=== PATIENT | female | born 1965 | race Caucasian/White ===

== ENCOUNTER 2016-05-24 12:00 | Day surgery (SDC) | payer OTHER ==
[2016-05-22 11:09] VITALS: BMI 29.1
[~2016-05-24 12:00] MED LIST: DEXAMETHASONE SOD PHOSPHATE 10 MG/ML 1 ML VIAL IV ONE; FAMOTIDINE 20 MG/2 ML VIAL IV PRN; HEPARIN SODIUM,PORCINE 5,000 UNIT/ML 1 ML VIAL SQ ONE; LIDOCAINE 1% 20 ML VIAL (10MG/ML) FOR IV START INTRADERMA PRN; MIDAZOLAM 2 MG/2 ML VIAL IV PRN; ONDANSETRON 4 MG/2 ML VIAL IVP ONE; SCOPOLAMINE 1.5MG/72HR PATCH TRANSDERM ONE; ceFAZolin 2 GM in SODIUM CHLORIDE 0.9% 100 ML IVPB ONE
[2016-05-24 13:40] LABS: INR 1.1 (<1.1)
[2016-05-24] MEDS: LACTATED RINGERS 1,000 ML IV SCH (13:44)
[2016-05-24] MEDS ORDERED: MIDAZOLAM 2 MG/2 ML VIAL ONE (15:08)
[2016-05-24] MEDS ORDERED: PROPOFOL 10 MG/ML 20 ML VIAL IV ONE (15:08)
[2016-05-24] MEDS ORDERED: fentaNYL (PF) 50 MCG/ML 2 ML AMP ONE (15:08)
[2016-05-24] MEDS ORDERED: PHENYLEPHRINE-0.9% NACL SYG 1 MG/10 ML SYRINGE ONE (15:08)
[2016-05-24] MEDS ORDERED: LIDOCAINE 1% INJ 10MG/ML (20 ML MDV) ONE (15:08)
[2016-05-24] MEDS ORDERED: ROCURONIUM BROMIDE 10 MG/ML 10 ML VIAL IV ONE (15:08)
[2016-05-24] MEDS ORDERED: KETOROLAC 30 MG/ML 1 ML VIAL ONE (15:08)
[2016-05-24] MEDS ORDERED: NEOSTIGMINE 1 MG/ML 10 ML VIAL ONE (15:08)
[2016-05-24] MEDS ORDERED: SUCCINYLCHOLINE CHLORIDE 100 MG/5 ML SYR IV ONE (15:08)
[2016-05-24] MEDS ORDERED: METOPROLOL TARTRATE 5 MG/5 ML VIAL IVP ONE (15:08)
[2016-05-24] MEDS ORDERED: GLYCOPYRROLATE 0.2 MG/ML 2 ML VIAL ONE (15:08)
[2016-05-24] MEDS ORDERED: HYDROmorphone (PF) 1 MG/ML ONE (15:08)
[2016-05-24] MEDS ORDERED: BUPIVACAIN-EPI 0.25%-1:200,000 30 ML VIAL SQ ONE ×2 (15:49)
[2016-05-24] MEDS ORDERED: LACTATED RINGERS 1,000 ML IV ONE (16:53)
[2016-05-24 17:16] VITALS: TEMP 97.8
--- NOTE | 2016-05-24 17:16 | P.OP ---
Date of Procedure: 05/24/16 Preoperative Diagnosis: Right inguinal pain Postoperative Diagnosis: Right Indirect inguinal hernia Right femoral hernia Procedure(s) Performed: Robot assisted laparoscopic inguinal hernia repair with mesh Anesthesia: BELL Surgeon: Naren Lopez Estimated Blood Loss (ml): 10 Pathology: none sent Condition: stable Disposition: PACU Indications for Procedure: Pain in the right groin with swelling Operative Findings: Right indirect inguinal hernia and right femoral hernia No active bleeding at the end of the procedure Description of Procedure: Informed consent was obtained patient and then The patient was brought to the operating room and placed in supine position. General anesthesia with endotracheal intubation was performed as per anesthesia team. A sanchez catheter was inserted under sterile aseptic precautions. Chlorhexidine was used to prep the skin followed by application of sterile drapes . She was placed in the lithotomy position. A timeout was performed to verify correct patient, correct procedure and correct side. Patient was confirmed to receive perioperative IV antibiotics, subcutaneous heparin 5000 units and bilateral SCDs were placed. The left upper quadrant point was identified and a stab incision was made. Veress needle was introduced and placement was confirmed with the help of the drop test. The abdomen was then insufflated to 15 mmHg. Once that was done 5 mm port was introduced into the left upper quadrant using the Optiview technique after which a 12 mm port was placed in the supraumbilical position and a 8 mm port in the right lower quadrant and another 8 mm port inthe left lower quadrant. The robot was then docked with the central camera port and the 2 side working ports. The camera and the instrument was were introduced after which the median umbilical fold was retracted laterally towards the left side a small incision was made at the junction of the umbilical fold and the peritoneum and carried all the way laterally thus creating a plane in the preperitoneal space. This did this was further dissected with the help of blunt dissection using gentle stroking maneuvers all the way down to Brendon ligament medially and laterally we went inferior exposing the vessels inferiorly. The round ligament was identified and the hernia sac was teased off of the ligament gently with the help of blunt dissection and once it was taken off and then attention was turned to the femoral canal where fat was plugging the canal in the form of a hernia and it was reduced. The hernia sac and the other fat was had been reduced the [employer] mesh was introduced in the abdominal cavity with the lower part above the level of the peritoneal fold was then unfolded so that it covered all the orifices and covered the Brendon's ligament medially once again pain positioned perfectly to seal was applied to the inferior edge of the mesh as well as around the Brendon's ligament after which the peritoneal flaps were closed with the help of running 0 v lock suture once that was done procedure was completed all incisions and camera was removed and a laparoscope was introduced and the 12 mm port site was closed with the help of a Renzo Shoemaker the direct vision after which gas was turned off abdomen was thoroughly desufflated skins was closed with the help of 4-0 Monocryl and Dermabond. Sanchez catheter was removed patient was extubated and taken to recovery room in stable condition patient tolerated the procedure well there were no complications
[2016-05-24] MEDS: HYDROmorphone 1 MG/ML 1 ML SYRINGE IVP PRN ×3 (17:19→17:30)
[2016-05-24 17:37] LABS: Glucose,Whole Blood 142 mg/dL (75-99)
[2016-05-24] MEDS ORDERED: oxyCODONE-APAP 10-325MG 1 EACH TAB PO PRN (17:53)
[2016-05-24 18:01] VITALS: RESP 18
[2016-05-24 18:53] VITALS: BP 117/73; PULSE 78
== END 2016-05-24 19:17 | disposition home or self-care (01) ==
LOC: OR 12:00
PROVIDERS: ATTEND Surgery
DX: K40.90 Unilateral inguinal hernia, without obstruction or gangrene, not specified as recurrent (principal); K41.90 Unilateral femoral hernia, without obstruction or gangrene, not specified as recurrent; K91.5 Postcholecystectomy syndrome; D68.59 Other primary thrombophilia; Z86.711 Personal history of pulmonary embolism; Z86.718 Personal history of other venous thrombosis and embolism; E72.12 Methylenetetrahydrofolate reductase deficiency; E78.5 Hyperlipidemia, unspecified; E55.9 Vitamin D deficiency, unspecified; F32.9 Major depressive disorder, single episode, unspecified; F41.1 Generalized anxiety disorder; I11.9 Hypertensive heart disease without heart failure; G89.4 Chronic pain syndrome; M19.90 Unspecified osteoarthritis, unspecified site; F39 Unspecified mood [affective] disorder; Z79.01 Long term (current) use of anticoagulants; Z79.891 Long term (current) use of opiate analgesic; Z79.899 Other long term (current) drug therapy; Z88.8 Allergy status to other drugs, medicaments and biological substances; F17.200 Nicotine dependence, unspecified, uncomplicated
CPT/HCPCS: 49650; 81025; 85610; C1781; J2250; J1644; J1100; J2710; J0690; J2405; J2001; J3010; J1885; J1170; J2370; J0330; J2704

== ENCOUNTER → 2016-06-22 | Outpatient (CLI) | payer OTHER ==
--- NOTE | 2016-06-22 13:40 | XR ---
EXAMINATION TYPE: XR knee complete bilateral DATE OF EXAM: 06/22/2016 1:30 PM COMPARISON: NONE HISTORY: Pain TECHNIQUE: 3 views of each knee are submitted. FINDINGS: Right knee: There is narrowing of the joint space but no erosive changes. Sclerotic lesion involving the tibia most typical of bone island. No acute fracture. No dislocation. There is a small amount of fluid in the suprapatellar bursa. Left knee: There is mixed sclerosis involving the medial tibial plateau. No fracture line. Narrowing of the joint space seen. No erosive change. Small amount of fluid in the suprapatellar bursa.. IMPRESSION: 1. No acute fracture or dislocation. 2. A post arthritic changes bilaterally. Recommend bilateral MRI of the knee particularly on the left to assess the areas of sclerosis involving the medial tibial plateau. Both knees demonstrate suprapa tellar bursal fluid collections.
== END | disposition home or self-care (01) ==
LOC: RADXRMAIN 12:56
PROVIDERS: ATTEND Internal Medicine
DX: M17.0 Bilateral primary osteoarthritis of knee (principal); M89.8X6 Other specified disorders of bone, lower leg

== ENCOUNTER → 2016-07-10 | Outpatient (CLI) | payer OTHER ==
--- NOTE | 2016-07-10 23:12 | MR ---
MRI CERVICAL SPINE: CLINICAL HISTORY: Cervicalgia per order. Headache with neck pain and stiffness for 5 years causing pa in or weakness in right arm and fingers per patient. TECHNIQUE: Multiplanar, multisequence imaging of the cervical spine is performed without IV contrast. COMPARISON: Prior MRI cervical spine March 23, 2015. FINDINGS: Coronal images show levoconvex scoliosis centered in the upper to midthoracic spine similar to prior exam. Sagittal images of the cervical spine show the craniocervical junction to appear with in normal limits. The cervical and upper thoracic spinal cord is normal in course, caliber, and sign al. Vertebral alignment is anatomic. The vertebral body and heights remain normal. There is redemo nstration of fairly moderate disc space narrowing and spurring at C5-C6 and C6-C7 levels. Posterior d isc herniations are redemonstrated effacing anterior thecal sac at these levels on sagittal images. H eterogeneous diminished T1 and increased T2 signal at these levels consistent with Modic type I degen erative change is redemonstrated.. Axial images show the C2-C3 level to remain within normal limits. Axial images at C3-C4 level redemonstrate some uncovertebral facet degenerative changes bilaterally w ith right paracentral/foraminal disc protrusion effacing anterolateral thecal sac and causing asymmet ebony mild right-sided neural foraminal narrowing. Left-sided neural foramen is patent. No significant change from prior. Axial images at C4-C5 level show left-sided uncovertebral facet degenerative changes with broad-based right paracentral disc protrusion effacing anterior thecal sac, bilateral neural foramina are patent . No significant change from prior. Axial images at C5-C6 level broad-based posterior disc protrusion with left-sided uncovertebral facet degenerative changes, there is effacement of the anterior thecal sac and moderate to severe left-mandy ed neural foraminal narrowing redemonstrated. Right-sided neural foramen is patent. No significant ch axel from prior study is seen seen. Axial images at C6-C7 level show broad-based posterior disc protrusion effacing anterior thecal sac u p to ventral surface of spinal cord on current study though finding is felt exaggerated by artifact a s is less prominent on sagittal images bilateral neural foramina remain patent. Axial images at C7-T1 level also show blooming artifact, there is disc herniation effacing anterior t hecal sac, bilateral neural foramina are likely patent at this level. Slight grade 1 anterolisthesis C7 on T1 is redemonstrated. IMPRESSION: Multilevel degenerative changes in the cervical spine as detailed above most prominent fi ndings remain present at C5-C6 and C6-C7 level. No significant progression from prior MRI is noted.
== END | disposition home or self-care (01) ==
LOC: RADMRIMAIN 16:25
PROVIDERS: ATTEND Psychiatry & Neurology Neurology
DX: M47.812 Spondylosis without myelopathy or radiculopathy, cervical region (principal)
CPT/HCPCS: 72141

== ENCOUNTER 2016-10-22 11:11 | Inpatient (IN) | payer OTHER ==
[2016-10-22] MEDS ORDERED: ONDANSETRON 4 MG/2 ML VIAL IVP STA (11:58)
[2016-10-22] MEDS ORDERED: SODIUM CHLORIDE 0.9% 1,000 ML IV ONE ×2 (11:58→13:30)
[2016-10-22] MEDS ORDERED: MORPHINE SULFATE 4 MG/ML SYRINGE IVP STA (11:58)
[2016-10-22] MEDS ORDERED: MAG HYDROX/AL HYDROX/SIMETH 30 ML, HYOSCYAMINE ELIXIR 10 ML, CIMETIDINE HCL 300 MG, LID... PO STA ×4 (11:58)
[2016-10-22] MEDS: ASPIRIN 325 MG TAB PO STA ×2 (12:11→13:51)
[2016-10-22 12:22] LABS: Basophils % (A) 0 %; CH 30.7; CHCM 34.7; Eosinophils # (A) 0.1 k/uL (0-0.7); Eosinophils % (A) 1 %; HCT 50.4 % (34.0-46.0); HDW 2.19; HGB 17.3 gm/dL (11.4-16.0); Luc # (Auto) 0.11; Luc % (Auto) 1; Lymphocytes % (A) 6 %; MCH 30.4 pg (25.0-35.0); MCHC 34.3 g/dL (31.0-37.0); MCV 88.7 fL (80.0-100.0); Mean Platelet Volume 6.4; Monocytes # (A) 0.5 k/uL (0-1.0); Monocytes % (A) 3 %; Neutrophils # (A) 15.8 k/uL (1.3-7.7); Neutrophils % (A) 90 %; RBC 5.68 m/uL (3.80-5.40); WBC 17.5 k/uL (3.8-10.6); WBC (Perox) 17.42
[2016-10-22 12:31] LABS: ALT 38 U/L (9-52); AST 22 U/L (14-36); Alkaline Phosphatase 137 U/L (38-126); Anion Gap 12 mmol/L; Blood Urea Nitrogen 16 mg/dL (7-17); Calcium 9.8 mg/dL (8.4-10.2); Carbon Dioxide 23 mmol/L (22-30); Chloride 101 mmol/L (98-107); Glucose 113 mg/dL (74-99); Non-African American GFR(MDRD) >60 (>60 ml/min/1.73 sqM); Potassium 3.3 mmol/L (3.5-5.1); Sodium 136 mmol/L (137-145); Total Bilirubin 1.2 mg/dL (0.2-1.3); Total Protein 7.4 g/dL (6.3-8.2)
--- NOTE | 2016-10-22 12:48 | XR ---
EXAMINATION TYPE: XR chest 2V DATE OF EXAM: 10/22/2016 COMPARISON: Chest x-ray March 10, 2014. HISTORY: Sharp chest and epigastric abdominal pain. TECHNIQUE: Frontal and lateral views of the chest are obtained. FINDINGS: There is no focal air space opacity, pleural effusion, or pneumothorax seen. The cardiac silhouette size is within normal limits. The osseous structures are intact. Cholecystectomy clips a re redemonstrated on lateral view. IMPRESSION: No acute process. No significant change from prior.
[2016-10-22] MEDS ORDERED: KETOROLAC 30 MG/ML 1 ML VIAL IVP STA (13:30)
[2016-10-22] MEDS ORDERED: HYDROmorphone 1 MG/ML 1 ML SYRINGE IVP STA (13:30)
--- NOTE | 2016-10-22 13:41 | ED ---
Abdominal Pain HPI - General Chief Complaint: Abdominal Pain Stated Complaint: Abdominal Pain Source: patient Mode of arrival: wheelchair Limitations: no limitations - History of Present Illness Initial Comments: 51-year-old female with past medical history of DM, DVT, HLD, HTN, PE , MTHFR gene clotting disorder, cholecystectomy, tubal ligation, and uterine ablation presented for evaluation of epigastric abdominal pain that occurred suddenly at 3 AM this morning. She states she got up to the bathroom and took a drink of water and immediately had sudden onset pain. She states that she's had 3 previous episodes to of which resolved on their own and one resulted in coming to the ED for which no pathologic etiology was identified and she was discharged home. She states there are no alleviating factors and there is associated nausea without vomiting. She denies chest pain, shortness breath, fevers, chills. - Related Data Home Medications Medication Instructions Recorded Confirmed DULoxetine HCL [Cymbalta] 60 mg PO BID 05/23/16 10/22/16 Pregabalin [Lyrica] 75 mg PO BID 05/23/16 10/22/16 Atenolol [Tenormin] 25 mg PO BID 10/22/16 10/22/16 Butalb/Acetaminophen/Caffeine 1 tab PO Q6HR PRN 10/22/16 10/22/16 [Fioricet 50-325-40] HYDROcodone/APAP 10-325MG [Wolbach 1 tab PO QID 10/22/16 10/22/16 10-325] Levothyroxine Sodium [Synthroid] 50 mcg PO DAILY 10/22/16 10/22/16 Losartan Potassium [Losartan 100 mg PO DAILY 10/22/16 10/22/16 Potassium] Warfarin Sodium 10 mg PO Q48H 10/22/16 10/22/16 Warfarin Sodium [Coumadin] 5 mg PO Q48H 10/22/16 10/22/16 Allergies Allergy/AdvReac Type Severity Reaction Status Date / Time No Known Allergies Allergy Verified 10/22/16 11:22 Review of Systems ROS Statement: Those systems with pertinent positive or pertinent negative responses have been documented in the HPI. ROS Other: All systems not noted in ROS Statement are negative. Constitutional: Denies: fever, chills Eyes: Denies: eye pain, eye discharge ENT: Denies: ear pain, throat pain Respiratory: Denies: cough, dyspnea Cardiovascular: Denies: chest pain, palpitations Endocrine: Denies: fatigue, polydipsia Gastrointestinal: Reports: abdominal pain, nausea. Denies: vomiting, diarrhea, constipation, hematemesis, melena, hematochezia Genitourinary: Denies: urgency, dysuria Musculoskeletal: Denies: back pain, arthralgia, myalgia Skin: Denies: rash, lesions Neurological: Denies: headache, weakness Psychiatric: Denies: anxiety, depression Hematological/Lymphatic: Denies: easy bleeding, easy bruising Past Medical History Past Medical History: Blood Disorder, Diabetes Mellitus, Deep Vein Thrombosis ( DVT), Hyperlipidemia, Hypertension, Pulmonary Embolus (PE) Additional Past Medical History / Comment(s): rt inguinal hernia,MTHFR gene- clotting disorder-developed DVT & PE after knee surg., frequent diarrhea, no longer taking anything for diabetes-was borderline,thinks steroids Feb 2016 History of Any Multi-Drug Resistant Organisms: None Reported Past Surgical History: Cholecystectomy, Orthopedic Surgery, Tubal Ligation, Uterine Ablation Additional Past Surgical History / Comment(s): hand surg & knee surg. Past Anesthesia/Blood Transfusion Reactions: No Reported Reaction Past Psychological History: Depression Smoking Status: Current every day smoker Past Alcohol Use History: None Reported Past Drug Use History: None Reported - Past Family History Mother Family Medical History: No Reported History Father History Unknown: Yes General Exam Limitations: no limitations General appearance: alert, in distress, obese Head exam: Present: atraumatic, normocephalic, normal inspection Eye exam: Present: normal appearance, PERRL, EOMI. Absent: scleral icterus, conjunctival injection, periorbital swelling ENT exam: Present: normal exam, mucous membranes moist Neck exam: Present: normal inspection. Absent: tenderness, meningismus, lymphadenopathy Respiratory exam: Present: normal lung sounds bilaterally, other ( hyperventilation). Absent: respiratory distress, wheezes, rales, rhonchi, stridor Cardiovascular Exam: Present: regular rate, normal rhythm, normal heart sounds. Absent: systolic murmur, diastolic murmur, rubs, gallop, clicks GI/Abdominal exam: Present: soft, tenderness (epigastric). Absent: distended, guarding, rebound, rigid, mass, bruit, pulsatile mass, hernia Rectal exam: Present: deferred Extremities exam: Present: normal inspection, full ROM, normal capillary refill. Absent: tenderness, pedal edema, joint swelling, calf tenderness Back exam: Present: normal inspection Neurological exam: Present: alert, oriented X3, CN II-XII intact Psychiatric exam: Present: normal affect, normal mood Skin exam: Present: warm, dry, intact, normal color. Absent: rash Course Vital Signs 10/22/16 10/22/16 10/22/16 11:22 15:40 17:04 Temperature 98.3 F 101.1 F H 99.5 F Pulse Rate 82 93 86 Respiratory 28 H 18 18 Rate Blood Pressure 123/86 160/88 152/85 O2 Sat by Pulse 100 97 94 L Oximetry 10/22/16 18:14 Temperature 98.9 F Pulse Rate 75 Respiratory 18 Rate Blood Pressure 145/87 O2 Sat by Pulse 96 Oximetry Medical Decision Making - Medical Decision Making 51-year-old female with significant past medical history presented for evaluation of epigastric abdominal pain of sudden onset without radiation that started at 3 AM this morning. She states this is similar previous episodes however she has had no previous admissions for them. On physical examination she does appear to be in marked distress and constantly moving around on the bed. There is mild tenderness to the epigastric area however the abdomen is soft without peritoneal signs of guarding, rigidity, rebound. There is no flank tenderness bilaterally. The patient is not actively vomiting during exam and she has not been noted to have any emesis during her visit here. Concern for pancreatitis however given her age and comorbidities we'll also work up for ACS with troponins and EKG. On reevaluation the patient continues to have marked abdominal tenderness. Labs revealed a mild elevation in lactic acid at 2.1 and a white count of 17. There is also an elevation in her alk phos however she does have a past medical history of a cholecystectomy. The patient was informed of her lab results and repeat pain control as well as another liter of IV fluids provided. We'll obtain CT abdomen and pelvis for further evaluation. CT abdomen and pelvis showed diffuse colitis through the transverse colon as well as the sigmoid colon. During this time the pt became febrile and required tylenol for fever relief. She was informed of all results and that she would be admitted and started on IV antibiotics. The accepting physician and his PA were updated on the status of the patient and agreed with plan of care. Admission order placed and bed request submitted. - Lab Data Result diagrams: 10/22/16 12:09 10/22/16 12:09 Lab Results 10/22/16 10/22/16 10/22/16 Range/Units 12:09 12:09 12:09 WBC 17.5 H (3.8-10.6) k/uL RBC 5.68 H (3.80-5.40) m/uL Hgb 17.3 H (11.4-16.0) gm/dL Hct 50.4 H (34.0-46.0) % MCV 88.7 (80.0-100.0) fL MCH 30.4 (25.0-35.0) pg MCHC 34.3 (31.0-37.0) g/dL RDW 13.0 (11.5-15.5) % Plt Count 371 (150-450) k/uL Neutrophils % 90 % Lymphocytes % 6 % Monocytes % 3 % Eosinophils % 1 % Basophils % 0 % Neutrophils # 15.8 H (1.3-7.7) k/uL Lymphocytes # 1.0 (1.0-4.8) k/uL Monocytes # 0.5 (0-1.0) k/uL Eosinophils # 0.1 (0-0.7) k/uL Basophils # 0.0 (0-0.2) k/uL PT (9.0-12.0) sec INR (<1.2) Sodium 136 L (137-145) mmol/L Potassium 3.3 L (3.5-5.1) mmol/L Chloride 101 (98-107) mmol/L Carbon Dioxide 23 (22-30) mmol/L Anion Gap 12 mmol/L BUN 16 (7-17) mg/dL Creatinine 0.60 (0.52-1.04) mg/dL Est GFR (MDRD) Af Amer >60 (>60 ml/min/1.73 sqM) Est GFR (MDRD) Non-Af >60 (>60 ml/min/1.73 sqM) Glucose 113 H (74-99) mg/dL Lactic Ac Sepsis Rflx Plasma Lactic Acid Corky 2.1 H* (0.7-2.0) mmol/L Calcium 9.8 (8.4-10.2) mg/dL Total Bilirubin 1.2 (0.2-1.3) mg/dL AST 22 (14-36) U/L ALT 38 (9-52) U/L Alkaline Phosphatase 137 H (38-126) U/L Troponin I (0.000-0.034) ng/mL NT-Pro-B Natriuret Pep pg/mL Total Protein 7.4 (6.3-8.2) g/dL Albumin 4.5 (3.5-5.0) g/dL Lipase 59 (23-300) U/L Urine Color Urine Appearance (Clear) Urine pH (5.0-8.0) Ur Specific [place] (1.001-1.035) Urine Protein (Negative) Urine Glucose (UA) (Negative) Urine Ketones (Negative) Urine Blood (Negative) Urine Nitrite (Negative) Urine Bilirubin (Negative) Urine Urobilinogen (<2.0) mg/dL Ur Leukocyte Esterase (Negative) Urine RBC (0-5) /hpf Urine WBC (0-5) /hpf Ur Squamous Epith Cells (0-4) /hpf Urine Bacteria (None) /hpf Urine Mucus (None) /hpf 10/22/16 10/22/16 10/22/16 Range/Units 12:09 12:09 12:09 WBC (3.8-10.6) k/uL RBC (3.80-5.40) m/uL Hgb (11.4-16.0) gm/dL Hct (34.0-46.0) % MCV (80.0-100.0) fL MCH (25.0-35.0) pg MCHC (31.0-37.0) g/dL RDW (11.5-15.5) % Plt Count (150-450) k/uL Neutrophils % % Lymphocytes % % Monocytes % % Eosinophils % % Basophils % % Neutrophils # (1.3-7.7) k/uL Lymphocytes # (1.0-4.8) k/uL Monocytes # (0-1.0) k/uL Eosinophils # (0-0.7) k/uL Basophils # (0-0.2) k/uL PT 14.6 H (9.0-12.0) sec INR 1.5 H (<1.2) Sodium (137-145) mmol/L Potassium (3.5-5.1) mmol/L Chloride (98-107) mmol/L Carbon Dioxide (22-30) mmol/L Anion Gap mmol/L BUN (7-17) mg/dL Creatinine (0.52-1.04) mg/dL Est GFR (MDRD) Af Amer (>60 ml/min/1.73 sqM) Est GFR (MDRD) Non-Af (>60 ml/min/1.73 sqM) Glucose (74-99) mg/dL Lactic Ac Sepsis Rflx Plasma Lactic Acid Corky (0.7-2.0) mmol/L Calcium (8.4-10.2) mg/dL Total Bilirubin (0.2-1.3) mg/dL AST (14-36) U/L ALT (9-52) U/L Alkaline Phosphatase (38-126) U/L Troponin I <0.012 (0.000-0.034) ng/mL NT-Pro-B Natriuret Pep 1010 pg/mL Total Protein (6.3-8.2) g/dL Albumin (3.5-5.0) g/dL Lipase (23-300) U/L Urine Color Urine Appearance (Clear) Urine pH (5.0-8.0) Ur Specific [place] (1.001-1.035) Urine Protein (Negative) Urine Glucose (UA) (Negative) Urine Ketones (Negative) Urine Blood (Negative) Urine Nitrite (Negative) Urine Bilirubin (Negative) Urine Urobilinogen (<2.0) mg/dL Ur Leukocyte Esterase (Negative) Urine RBC (0-5) /hpf Urine WBC (0-5) /hpf Ur Squamous Epith Cells (0-4) /hpf Urine Bacteria (None) /hpf Urine Mucus (None) /hpf 10/22/16 10/22/16 10/22/16 Range/Units 12:46 13:10 16:13 WBC (3.8-10.6) k/uL RBC (3.80-5.40) m/uL Hgb (11.4-16.0) gm/dL Hct (34.0-46.0) % MCV (80.0-100.0) fL MCH (25.0-35.0) pg MCHC (31.0-37.0) g/dL RDW (11.5-15.5) % Plt Count (150-450) k/uL Neutrophils % % Lymphocytes % % Monocytes % % Eosinophils % % Basophils % % Neutrophils # (1.3-7.7) k/uL Lymphocytes # (1.0-4.8) k/uL Monocytes # (0-1.0) k/uL Eosinophils # (0-0.7) k/uL Basophils # (0-0.2) k/uL PT (9.0-12.0) sec INR (<1.2) Sodium (137-145) mmol/L Potassium (3.5-5.1) mmol/L Chloride (98-107) mmol/L Carbon Dioxide (22-30) mmol/L Anion Gap mmol/L BUN (7-17) mg/dL Creatinine (0.52-1.04) mg/dL Est GFR (MDRD) Af Amer (>60 ml/min/1.73 sqM) Est GFR (MDRD) Non-Af (>60 ml/min/1.73 sqM) Glucose (74-99) mg/dL Lactic Ac Sepsis Rflx Y Plasma Lactic Acid Corky 0.8 (0.7-2.0) mmol/L Calcium (8.4-10.2) mg/dL Total Bilirubin (0.2-1.3) mg/dL AST (14-36) U/L ALT (9-52) U/L Alkaline Phosphatase (38-126) U/L Troponin I (0.000-0.034) ng/mL NT-Pro-B Natriuret Pep pg/mL Total Protein (6.3-8.2) g/dL Albumin (3.5-5.0) g/dL Lipase (23-300) U/L Urine Color Yellow Urine Appearance Cloudy H (Clear) Urine pH 8.0 (5.0-8.0) Ur Specific [place] 1.015 (1.001-1.035) Urine Protein 1+ H (Negative) Urine Glucose (UA) Trace H (Negative) Urine Ketones 3+ H (Negative) Urine Blood Small H (Negative) Urine Nitrite Negative (Negative) Urine Bilirubin Negative (Negative) Urine Urobilinogen <2.0 (<2.0) mg/dL Ur Leukocyte Esterase Negative (Negative) Urine RBC 10 H (0-5) /hpf Urine WBC <1 (0-5) /hpf Ur Squamous Epith Cells 5 H (0-4) /hpf Urine Bacteria Rare H (None) /hpf Urine Mucus Rare H (None) /hpf 10/22/16 10/22/16 Range/Units 16:25 16:25 WBC (3.8-10.6) k/uL RBC (3.80-5.40) m/uL Hgb (11.4-16.0) gm/dL Hct (34.0-46.0) % MCV (80.0-100.0) fL MCH (25.0-35.0) pg MCHC (31.0-37.0) g/dL RDW (11.5-15.5) % Plt Count (150-450) k/uL Neutrophils % % Lymphocytes % % Monocytes % % Eosinophils % % Basophils % % Neutrophils # (1.3-7.7) k/uL Lymphocytes # (1.0-4.8) k/uL Monocytes # (0-1.0) k/uL Eosinophils # (0-0.7) k/uL Basophils # (0-0.2) k/uL PT (9.0-12.0) sec INR (<1.2) Sodium (137-145) mmol/L Potassium (3.5-5.1) mmol/L Chloride (98-107) mmol/L Carbon Dioxide (22-30) mmol/L Anion Gap mmol/L BUN (7-17) mg/dL Creatinine (0.52-1.04) mg/dL Est GFR (MDRD) Af Amer (>60 ml/min/1.73 sqM) Est GFR (MDRD) Non-Af (>60 ml/min/1.73 sqM) Glucose (74-99) mg/dL Lactic Ac Sepsis Rflx Plasma Lactic Acid Corky 0.8 (0.7-2.0) mmol/L Calcium (8.4-10.2) mg/dL Total Bilirubin (0.2-1.3) mg/dL AST (14-36) U/L ALT (9-52) U/L Alkaline Phosphatase (38-126) U/L Troponin I 0.033 (0.000-0.034) ng/mL NT-Pro-B Natriuret Pep pg/mL Total Protein (6.3-8.2) g/dL Albumin (3.5-5.0) g/dL Lipase (23-300) U/L Urine Color Urine Appearance (Clear) Urine pH (5.0-8.0) Ur Specific [place] (1.001-1.035) Urine Protein (Negative) Urine Glucose (UA) (Negative) Urine Ketones (Negative) Urine Blood (Negative) Urine Nitrite (Negative) Urine Bilirubin (Negative) Urine Urobilinogen (<2.0) mg/dL Ur Leukocyte Esterase (Negative) Urine RBC (0-5) /hpf Urine WBC (0-5) /hpf Ur Squamous Epith Cells (0-4) /hpf Urine Bacteria (None) /hpf Urine Mucus (None) /hpf 10/22/16 15:12 Normal sinus rhythm with possible left atrial enlargement, left axis deviation, prolonged QT, ventricular rate of 78, MI interval 134, QRS 76, QT/QTc 422/481. Disposition Clinical Impression: Colitis, Lactic acidosis, Intractable abdominal pain, Fever Disposition: ADMITTED IP TO [facility] Decision to Admit Reason: Admit from EC Decision Date: 10/22/16 Decision Time: 17:25
[2016-10-22 13:55] LABS: Appearance,Urine Cloudy (Clear); Bacteria,Urine Rare /hpf; Bilirubin,Urine Negative (Negative); Glucose,Urine (UA) Trace (Negative); Ketones,Urine 3+ (Negative); Leukocyte Esterase,Urine Negative (Negative); Mucus,Urine Rare /hpf; Nitrite,Urine Negative (Negative); Particle Count 6312; Protein,Urine 1+ (Negative); RBC,Urine 10 /hpf (0-5); Specific Gravity,Urine 1.015 (1.001-1.035); Squamous Epithelial Cell,Urine 5 /hpf (0-4); UA Billing (MACRO vs. MICRO) MICRO; Urobilinogen,Urine <2.0 mg/dL (<2.0); WBC,Urine <1 /hpf (0-5)
[2016-10-22] MEDS ORDERED: ACETAMINOPHEN TAB 325 MG TAB PO STA (15:43)
--- NOTE | 2016-10-22 17:10 | CT ---
EXAMINATION TYPE: CT abdomen pelvis wo con DATE OF EXAM: 10/22/2016 COMPARISON: NONE HISTORY: Abominal pain with vomiting CT DLP: 493.3 mGycm Automated exposure control for dose reduction was used. TECHNIQUE: Helical acquisition of images was performed from the lung bases through the pelvis. FINDINGS: Lung bases are clear. There is no pleural effusion. Heart size is normal. Liver spleen pancreas appear normal. There are clips from cholecystectomy. Bile ducts are not dilated . There is no adrenal mass. Kidneys have normal size and contour. There is no hydronephrosis. Bladder d istends smoothly. I see no pelvic mass. Appendix is not definitely seen. There is no sign of appendic itis. There is no retroperitoneal adenopathy. There is no ascites. There is minimal wall thickening i nvolving the sigmoid colon. There is also suggestion of mild diffuse wall thickening of the transvers e colon. I see no bony destructive process. There is no sign of a pelvic mass. IMPRESSION: MILD COLON WALL THICKENING SUGGESTIVE OF NONSPECIFIC COLITIS. NO EVIDENCE OF DIVERTICULITIS.
[2016-10-22] MEDS ORDERED: LEVOFLOXACIN 500MG-D5W PMX 500 MG in DEXTROSE/WATER 1 100ML.BAG IVPB STA (17:21)
[2016-10-22] MEDS ORDERED: metroNIDAZOLE-NS PMX 500 MG in SALINE 1 100ML.BAG IVPB STA (17:23)
[2016-10-22] MEDS ORDERED: LORazepam 2 MG/ML SYRINGE IV PRN (17:25)
[2016-10-22] MEDS ORDERED: ONDANSETRON 4 MG/2 ML VIAL IVP PRN (17:25)
[2016-10-22] MEDS ORDERED: NALOXONE 0.4 MG/ML 1 ML VIAL IV PRN (17:25)
[2016-10-22] MEDS: SODIUM CHLORIDE 0.9% 1,000 ML IV SCH (18:00)
[2016-10-22 18:05] LABS: INR 1.5 (<1.2); Prothrombin Time 14.6 sec (9.0-12.0)
[2016-10-22] MEDS: KETOROLAC 30 MG/ML 1 ML VIAL IVP PRN (18:22)
[2016-10-22] MEDS ORDERED: WARFARIN 10 MG TAB PO ONE (21:00)
[2016-10-22] MEDS: MORPHINE SULFATE 4 MG/ML SYRINGE IV PRN (22:01)
--- NOTE | 2016-10-22 22:15 | P.HPIM ---
History of Present Illness H&P Date: 10/22/16 Chief Complaint: Epigastric and abdominal pain This is a 51-year-old female patient of Dr. Eusebio Sanchez with chronic stable medical conditions of diabetes mellitus, hyperlipidemia, hypertension, history of DVT ,MTHFR gene clotting disorder, and PE, who presented with complaints of epigastric and abdominal pain that occurred suddenly at 3 AM this morning. States she got up and had a drink water and had immediate sudden onset of pain. Patient has had 3 previous episodes similar to this which have resolved on their own and one which resulted in a visit to the emergency department and there was no pathologic explanation for the episode and she was discharged home. Review of Systems GEN.: [None] EYES: [None] HEENT: [None] NECK: [None] RESPIRATORY: [None] CARDIOVASCULAR: [None] GASTROINTESTINAL: [Abdominal pain, nausea ] GENITOURINARY: [None] MUSCULOSKELETAL: [None] LYMPHATICS: [None] HEMATOLOGICAL: [None] PSYCHIATRY: [None] NEUROLOGICAL: [None] Past Medical History Past Medical History: Blood Disorder, Diabetes Mellitus, Deep Vein Thrombosis ( DVT), Hyperlipidemia, Hypertension, Pulmonary Embolus (PE) Additional Past Medical History / Comment(s): rt inguinal hernia,MTHFR gene- clotting disorder-developed DVT & PE after knee surg., frequent diarrhea, no longer taking anything for diabetes-was borderline,thinks steroids Feb 2016 History of Any Multi-Drug Resistant Organisms: None Reported Past Surgical History: Cholecystectomy, Orthopedic Surgery, Tubal Ligation, Uterine Ablation Additional Past Surgical History / Comment(s): hand surg & knee surg. Past Anesthesia/Blood Transfusion Reactions: No Reported Reaction Past Psychological History: Depression Smoking Status: Current every day smoker Past Alcohol Use History: None Reported Additional Past Alcohol Use History / Comment(s): started smoking at age 16 or 17 on and off, smokes approx 3 cig per day Past Drug Use History: None Reported - Past Family History Mother Family Medical History: No Reported History Father History Unknown: Yes Medications and Allergies Home Medications Medication Instructions Recorded Confirmed Type DULoxetine HCL [Cymbalta] 60 mg PO BID 05/23/16 10/22/16 History Pregabalin [Lyrica] 75 mg PO BID 05/23/16 10/22/16 History Atenolol [Tenormin] 25 mg PO BID 10/22/16 10/22/16 History Butalb/Acetaminophen/Caffeine 1 tab PO Q6HR PRN 10/22/16 10/22/16 History [Fioricet 50-325-40] HYDROcodone/APAP 10-325MG [[place] 1 tab PO QID 10/22/16 10/22/16 History 10-325] Levothyroxine Sodium [Synthroid] 50 mcg PO DAILY 10/22/16 10/22/16 History Losartan Potassium [Losartan 100 mg PO DAILY 10/22/16 10/22/16 History Potassium] Warfarin Sodium 10 mg PO Q48H 10/22/16 10/22/16 History Warfarin Sodium [Coumadin] 5 mg PO Q48H 10/22/16 10/22/16 History Allergies Allergy/AdvReac Type Severity Reaction Status Date / Time No Known Allergies Allergy Verified 10/22/16 11:22 Physical Exam Vitals: Vital Signs Temp Pulse Pulse Resp BP BP Pulse Ox 10/22/16 18:56 98.7 F 70 18 139/84 97 10/22/16 18:14 98.9 F 75 18 145/87 96 10/22/16 17:04 99.5 F 86 18 152/85 94 L 10/22/16 15:40 101.1 F H 93 18 160/88 97 10/22/16 11:22 98.3 F 82 28 H 123/86 100 Intake and Output 10/22/16 10/22/16 10/22/16 06:59 14:59 22:59 Intake Total 500 Balance 500 Intake: Amount of Fluid Infused ( 500 ml) Other: Weight 81.647 kg Patient Weight 10/23/16 06:59 Weight 81.647 kg VITAL SIGNS: [Reviewed. BMI noted] GENERAL: [Average built, lying in bed appears uncomfortable, ill. EYES: [Pupils equal. Conjunctiva netta]l. HEENT: [External appearance of nose and ears normal, oral cavity grossly normal] . NECK: [JVD not raised; masses not palpable]. HEART: [First and second heart sounds are normal; no edema]. LUNGS:[ Respiratory rate normal; clear to auscultation]. ABDOMEN: [Soft, tender, liver spleen not palpable, no masses palpable]. LYMPHATICS: [No lymph nodes palpable in the axilla and neck]. PSYCH: [Alert and oriented x3; mood and affect anxious, uncomfortable]l. NEUROLOGICAL: [Cranial nerves grossly intact; no facial asymmetry, power and sensation grossly intact]. Results CBC & Chem 7: 10/22/16 12:09 10/22/16 12:09 Labs: Abnormal Lab Results - Last 24 Hours (Table) 10/22/16 10/22/16 10/22/16 Range/Units 12:09 12:09 12:09 WBC 17.5 H (3.8-10.6) k/uL RBC 5.68 H (3.80-5.40) m/uL Hgb 17.3 H (11.4-16.0) gm/dL Hct 50.4 H (34.0-46.0) % Neutrophils # 15.8 H (1.3-7.7) k/uL PT (9.0-12.0) sec INR (<1.2) Sodium 136 L (137-145) mmol/L Potassium 3.3 L (3.5-5.1) mmol/L Glucose 113 H (74-99) mg/dL Plasma Lactic Acid Corky 2.1 H* (0.7-2.0) mmol/L Alkaline Phosphatase 137 H (38-126) U/L Urine Appearance (Clear) Urine Protein (Negative) Urine Glucose (UA) (Negative) Urine Ketones (Negative) Urine Blood (Negative) Urine RBC (0-5) /hpf Ur Squamous Epith Cells (0-4) /hpf Urine Bacteria (None) /hpf Urine Mucus (None) /hpf 10/22/16 10/22/16 Range/Units 12:09 13:10 WBC (3.8-10.6) k/uL RBC (3.80-5.40) m/uL Hgb (11.4-16.0) gm/dL Hct (34.0-46.0) % Neutrophils # (1.3-7.7) k/uL PT 14.6 H (9.0-12.0) sec INR 1.5 H (<1.2) Sodium (137-145) mmol/L Potassium (3.5-5.1) mmol/L Glucose (74-99) mg/dL Plasma Lactic Acid Corky (0.7-2.0) mmol/L Alkaline Phosphatase (38-126) U/L Urine Appearance Cloudy H (Clear) Urine Protein 1+ H (Negative) Urine Glucose (UA) Trace H (Negative) Urine Ketones 3+ H (Negative) Urine Blood Small H (Negative) Urine RBC 10 H (0-5) /hpf Ur Squamous Epith Cells 5 H (0-4) /hpf Urine Bacteria Rare H (None) /hpf Urine Mucus Rare H (None) /hpf Assessment and Plan Plan: ASSESSMENT: -Acute colitis in a patient who's had multiple episodes of intractable nausea and vomiting -Diabetes mellitus type 2, not currently on injectable or oral insulin -Hypothyroidism -Hyperlipidemia -Essential Hypertension -Depression not otherwise specified -MTHFR Gene clotting disorder -Current smoker PLAN: We will order home medications, continue IV fluids, consult GI,
--- NOTE | 2016-10-22 23:17 | P.HPIM ---
History of Present Illness H&P Date: 10/22/16 Chief Complaint: Abdominal pain History of presenting complaint: This is a 51-year-old patient of Dr. Petersen. Chronic stable medical conditions include diabetes mellitus type 2, DVT, hyperlipidemia, hypertension, PE, MTH [place] clotting disorder, at her baseline has diarrhea. Patient woke up early hours of the morning started having nausea vomiting increasing abdominal pain some chills. Vomiting settle down but patient still Having nausea and increasing abdominal pain. Patient at baseline has a few stools a day. Computed tomography scan in the ER showed evidence of colitis patient admitted for the same. Review of systems: Gen.-weak and tired chills HEENT none Eyes: None Respiratory-mild wheezing Cardiovascular-none Gastrointestinal-as above Genitourinary-none Musculoskeletal-none Psychiatry some anxiety Neurological none Past family history: Diabetes as well as type II, chronic DVT, hyperlipidemia, hypertension, PE, MTH father [place] clotting disorder, but baseline diarrhea. Past surgical history cholecystectomy tube ligation uterine ablation hand surgery and knee surgery Past psych history of depression Social history patient smokes about half a pack a day for close to 35 years lives with family Family history reviewed and noncontributory to presentation On examination: Vitals temperature 101.1, 93, 18, 160/88, 94% room air Gen. appearance well-built, BMI 30, laying in bed tired appearing HEENT-external appearance nausea oral cavity dry mucous membrane Eyes-pupils equal conjunctiva normal Respiratory-rate normal, decreased breath sounds Cardiovascular-first seconds are normal, no edema Abdomen-soft diffuse tenderness no guarding or rigidity, liver spleen not palpable Lymphatics-no lymph nodes palpable in neck and axilla Psychiatry-AO 3 mood affect anxious appearing Neurological-cranial nerves grossly intact, power sensation grossly intact Investigations: White count 17.5, and close and 17.3, INR 1.5, potassium 3.3,. Renal function normal Lactic acid 2.1 Computed tomography scan of the abdomen suggestive of diffuse small wall thickening of the transverse colon Assessment: Acute colitis likely infectious in etiology, causing sepsis upon presentation Hyperlipidemia Essential hypertension [facility] clotting disorder Chronic DVT PE on Coumadin Obesity BMI 30 Plan: Patient be put on IV fluids, IV antibiotics, clear liquids. GI been consulted. Care was discussed with the patient. Coumadin will be followed. This is an attending note. This patient seen and examined by me. I discussed the care group minus practitioner Ms. Pérez. Relevant finding as above Past Medical History Past Medical History: Blood Disorder, Diabetes Mellitus, Deep Vein Thrombosis ( DVT), Hyperlipidemia, Hypertension, Pulmonary Embolus (PE) Additional Past Medical History / Comment(s): rt inguinal hernia,MTHFR gene- clotting disorder-developed DVT & PE after knee surg., frequent diarrhea, no longer taking anything for diabetes-was borderline,thinks steroids Feb 2016 History of Any Multi-Drug Resistant Organisms: None Reported Past Surgical History: Cholecystectomy, Orthopedic Surgery, Tubal Ligation, Uterine Ablation Additional Past Surgical History / Comment(s): hand surg & knee surg. Past Anesthesia/Blood Transfusion Reactions: No Reported Reaction Past Psychological History: Depression Smoking Status: Current every day smoker Past Alcohol Use History: None Reported Past Drug Use History: None Reported - Past Family History Mother Family Medical History: No Reported History Father History Unknown: Yes Medications and Allergies Home Medications Medication Instructions Recorded Confirmed Type DULoxetine HCL [Cymbalta] 60 mg PO BID 05/23/16 10/22/16 History Pregabalin [Lyrica] 75 mg PO BID 05/23/16 10/22/16 History Atenolol [Tenormin] 25 mg PO BID 10/22/16 10/22/16 History Butalb/Acetaminophen/Caffeine 1 tab PO Q6HR PRN 10/22/16 10/22/16 History [Fioricet 50-325-40] HYDROcodone/APAP 10-325MG [[place] 1 tab PO QID 10/22/16 10/22/16 History 10-325] Levothyroxine Sodium [Synthroid] 50 mcg PO DAILY 10/22/16 10/22/16 History Losartan Potassium [Losartan 100 mg PO DAILY 10/22/16 10/22/16 History Potassium] Warfarin Sodium 10 mg PO Q48H 10/22/16 10/22/16 History Warfarin Sodium [Coumadin] 5 mg PO Q48H 10/22/16 10/22/16 History Allergies Allergy/AdvReac Type Severity Reaction Status Date / Time No Known Allergies Allergy Verified 10/22/16 11:22 Results CBC & Chem 7: 10/22/16 12:09 10/22/16 12:09
[2016-10-22] MEDS: DULoxetine HCL 60 MG CAPSULE.DR PO SCH (23:23)
[2016-10-22] MEDS: ATENOLOL 25 MG TAB PO SCH (23:23)
[2016-10-22] MEDS: PREGABALIN 75 MG CAP PO SCH (23:27)
[2016-10-23] MEDS: MORPHINE SULFATE 4 MG/ML SYRINGE IV PRN ×3 (02:04→22:03)
[2016-10-23] MEDS: KETOROLAC 30 MG/ML 1 ML VIAL IVP PRN ×2 (03:10→11:16)
[2016-10-23] MEDS: SODIUM CHLORIDE 0.9% 1,000 ML IV SCH ×3 (03:22→17:58)
[2016-10-23] MEDS: LEVOTHYROXINE 50 MCG TAB PO SCH (06:23)
[2016-10-23 08:35] LABS: Basophils % (A) 0 %; CH 30.3; CHCM 33.8; Eosinophils # (A) 0.1 k/uL (0-0.7); Eosinophils % (A) 0 %; HCT 42.1 % (34.0-46.0); HDW 2.16; Luc # (Auto) 0.24; Luc % (Auto) 2; Lymphocytes # (A) 1.8 k/uL (1.0-4.8); Lymphocytes % (A) 14 %; MCH 30.4 pg (25.0-35.0); MCHC 33.7 g/dL (31.0-37.0); MCV 90.2 fL (80.0-100.0); Mean Platelet Volume 6.4; Monocytes # (A) 0.6 k/uL (0-1.0); Monocytes % (A) 5 %; Neutrophils # (A) 9.7 k/uL (1.3-7.7); Neutrophils % (A) 79 %; RBC 4.67 m/uL (3.80-5.40); RDW 13.1 % (11.5-15.5); WBC 12.4 k/uL (3.8-10.6); WBC (Perox) 12.87
[2016-10-23 08:40] LABS: HGB 14.2 gm/dL (11.4-16.0)
[2016-10-23 08:46] LABS: ALT 24 U/L (9-52); AST 16 U/L (14-36); Alkaline Phosphatase 88 U/L (38-126); Anion Gap 7 mmol/L; Blood Urea Nitrogen 13 mg/dL (7-17); Calcium 8.1 mg/dL (8.4-10.2); Carbon Dioxide 25 mmol/L (22-30); Chloride 109 mmol/L (98-107); Glucose 98 mg/dL (74-99); Magnesium 1.8 mg/dL (1.6-2.3); Non-African American GFR(MDRD) >60 (>60 ml/min/1.73 sqM); Phosphorous 3.2 mg/dL (2.5-4.5); Potassium 3.4 mmol/L (3.5-5.1); Sodium 141 mmol/L (137-145); Total Bilirubin 0.8 mg/dL (0.2-1.3); Total Protein 5.8 g/dL (6.3-8.2)
[2016-10-23] MEDS: DULoxetine HCL 60 MG CAPSULE.DR PO SCH ×2 (08:55→22:10)
[2016-10-23] MEDS: LOSARTAN 50 MG TAB PO SCH (08:55)
[2016-10-23] MEDS: ATENOLOL 25 MG TAB PO SCH ×2 (08:55→22:10)
[2016-10-23] MEDS: PIPERACILLIN-TAZOBACTAM 3.375 GM in DEXTROSE/WATER 1 50ML.BAG IVPB SCH ×2 (08:55→16:27)
[2016-10-23] MEDS: PREGABALIN 75 MG CAP PO SCH ×2 (09:21→22:19)
[2016-10-23] MEDS: BUTALB/APAP/CAFF 50-325-40MG TAB PO PRN (11:17)
--- NOTE | 2016-10-23 12:52 | P.CONS ---
History of Present Illness - Reason for Consult Consult date: 10/23/16 colitis Requesting physician: Saeed Crowe - History of Present Illness 51-year-old female patient Dr. Martin with a past medical history of diarrhea after cholecystectomy 2 years ago, diabetes, hypertension,MTHFR, DVT, PE maintained on Coumadin. Presents with acute onset of midepigastric pain with increased nonbloody diarrhea. No history of peptic ulcer disease. No history of EGD colonoscopy. Denies epigastric pain after meals. Denies indigestion dyspepsia dysphagia odynophagia. No weight loss. Denies hematemesis hematochezia melena. Diarrhea improving. Abdominal pain improving. Tolerating clear liquids. Denies fever chills. Admission white count 17.5 presently 12.4. Hemoglobin 14.2. INR 1.5. Lipase 59. LFTs unremarkable. Lactic acid 2.1 on admission with hydration decreased to 0.8. Troponin 0.012-0.05. In contrast CT reported possible transverse colitis. Receiving empiric antibiotics. Review of Systems Constitutional: Denies fever, chills, sweats, weight gain, or loss. HEENT: Negative for migraines, blurred vision or loss, earaches, drainage, tinnitus, oral mucosal lesions, dysphagia, or odynophagia. CARDIAC: Negative for chest pain, arrhythmias, or palpitation. RESPIRATORY: Negative for shortness of breath, hemoptysis, cough, or sputum production. GI: See HPI for pertinent findings. : Negative for hematuria, urgency, frequency, polyuria, or dysuria. GYNc: Denies possibility of . Negative vaginal discharge. MUSCULOSKELETAL: Negative for muscle aches, swelling, arthritis, and arthralgias. NEUROLOGIC: Negative for stroke or TIA. Hematologic: MTHFR. TOBY DVT. ENDOCRINE: Diabetes. Negative for thyroid problems. SKIN: Negative for rash or itching. PSYCHIATRIC: Negative history for depression and anxiety All systems: negative (See HPI) Past Medical History Past Medical History: Blood Disorder, Diabetes Mellitus, Deep Vein Thrombosis ( DVT), Hyperlipidemia, Hypertension, Pulmonary Embolus (PE) Additional Past Medical History / Comment(s): rt inguinal hernia,MTHFR gene- clotting disorder-developed DVT & PE after knee surg., frequent diarrhea, no longer taking anything for diabetes-was borderline,thinks steroids Feb 2016 History of Any Multi-Drug Resistant Organisms: None Reported Past Surgical History: Cholecystectomy, Orthopedic Surgery, Tubal Ligation, Uterine Ablation Additional Past Surgical History / Comment(s): hand surg & knee surg. Past Anesthesia/Blood Transfusion Reactions: No Reported Reaction Past Psychological History: Depression Smoking Status: Current every day smoker Past Alcohol Use History: None Reported Additional Past Alcohol Use History / Comment(s): started smoking at age 16 or 17 on and off, smokes approx 3 cig per day Past Drug Use History: None Reported - Past Family History Mother Family Medical History: Asthma Father History Unknown: Yes Medications and Allergies Home Medications Medication Instructions Recorded Confirmed Type DULoxetine HCL [Cymbalta] 60 mg PO BID 05/23/16 10/22/16 History Pregabalin [Lyrica] 75 mg PO BID 05/23/16 10/22/16 History Atenolol [Tenormin] 25 mg PO BID 10/22/16 10/22/16 History Butalb/Acetaminophen/Caffeine 1 tab PO Q6HR PRN 10/22/16 10/22/16 History [Fioricet 50-325-40] HYDROcodone/APAP 10-325MG [[place] 1 tab PO QID 10/22/16 10/22/16 History 10-325] Levothyroxine Sodium [Synthroid] 50 mcg PO DAILY 10/22/16 10/22/16 History Losartan Potassium [Losartan 100 mg PO DAILY 10/22/16 10/22/16 History Potassium] Warfarin Sodium 10 mg PO Q48H 10/22/16 10/22/16 History Warfarin Sodium [Coumadin] 5 mg PO Q48H 10/22/16 10/22/16 History Allergies Allergy/AdvReac Type Severity Reaction Status Date / Time No Known Allergies Allergy Verified 10/22/16 11:22 Physical Exam Vitals: Vital Signs Temp Pulse Pulse Resp BP BP Pulse Ox 10/23/16 07:00 98.8 F 69 16 126/72 96 10/22/16 22:33 98.6 F 87 18 160/92 97 10/22/16 18:56 98.7 F 70 18 139/84 97 10/22/16 18:14 98.9 F 75 18 145/87 96 10/22/16 17:04 99.5 F 86 18 152/85 94 L 10/22/16 15:40 101.1 F H 93 18 160/88 97 Intake and Output 07/31/17 08/01/17 08/01/17 22:59 06:59 14:59 Intake Total 500 0 Balance 500 0 Intake: Amount of Fluid Infused ( 500 ml) Oral 0 Other: # Voids 1 1 General appearance: The patient is alert, oriented, in no acute distress. HET: Head is normocephalic and atraumatic. Pupils are equal and reactive. Oropharynx is clear without lesions. Neck: Supple without lymphadenopathy. Trachea midline. Heart: S1 S2. Regular rate and rhythm. Lungs: No crackles or wheezes are heard. Abdomen: Soft, very mild midepigastric tenderness, nondistended with bowel sounds. No peritoneal signs. No palpable organomegaly or masses. Extremities: Normal skin color and turgor. No cyanosis, rash, ulceration, clubbing, or edema. Radial and pedal pulses are 2/4 bilaterally. Neurological: No focal deficits. Strength and sensation are grossly intact. Results CBC & Chem 7: 10/23/16 08:05 10/23/16 08:05 Labs: Abnormal Lab Results - Last 24 Hours (Table) 10/22/16 10/22/16 10/22/16 Range/Units 12:09 12:09 12:09 WBC (3.8-10.6) k/uL Neutrophils # (1.3-7.7) k/uL PT 14.6 H (9.0-12.0) sec INR 1.5 H (<1.2) Sodium 136 L (137-145) mmol/L Potassium 3.3 L (3.5-5.1) mmol/L Chloride (98-107) mmol/L Glucose 113 H (74-99) mg/dL Plasma Lactic Acid Corky 2.1 H* (0.7-2.0) mmol/L Calcium (8.4-10.2) mg/dL Alkaline Phosphatase 137 H (38-126) U/L Troponin I (0.000-0.034) ng/mL Total Protein (6.3-8.2) g/dL Albumin (3.5-5.0) g/dL Urine Appearance (Clear) Urine Protein (Negative) Urine Glucose (UA) (Negative) Urine Ketones (Negative) Urine Blood (Negative) Urine RBC (0-5) /hpf Ur Squamous Epith Cells (0-4) /hpf Urine Bacteria (None) /hpf Urine Mucus (None) /hpf 10/22/16 10/22/16 10/23/16 Range/Units 13:10 23:43 08:05 WBC 12.4 H (3.8-10.6) k/uL Neutrophils # 9.7 H (1.3-7.7) k/uL PT (9.0-12.0) sec INR (<1.2) Sodium (137-145) mmol/L Potassium (3.5-5.1) mmol/L Chloride (98-107) mmol/L Glucose (74-99) mg/dL Plasma Lactic Acid Corky (0.7-2.0) mmol/L Calcium (8.4-10.2) mg/dL Alkaline Phosphatase (38-126) U/L Troponin I 0.050 H* (0.000-0.034) ng/mL Total Protein (6.3-8.2) g/dL Albumin (3.5-5.0) g/dL Urine Appearance Cloudy H (Clear) Urine Protein 1+ H (Negative) Urine Glucose (UA) Trace H (Negative) Urine Ketones 3+ H (Negative) Urine Blood Small H (Negative) Urine RBC 10 H (0-5) /hpf Ur Squamous Epith Cells 5 H (0-4) /hpf Urine Bacteria Rare H (None) /hpf Urine Mucus Rare H (None) /hpf 10/23/16 Range/Units 08:05 WBC (3.8-10.6) k/uL Neutrophils # (1.3-7.7) k/uL PT (9.0-12.0) sec INR (<1.2) Sodium (137-145) mmol/L Potassium 3.4 L (3.5-5.1) mmol/L Chloride 109 H (98-107) mmol/L Glucose (74-99) mg/dL Plasma Lactic Acid Corky (0.7-2.0) mmol/L Calcium 8.1 L (8.4-10.2) mg/dL Alkaline Phosphatase (38-126) U/L Troponin I (0.000-0.034) ng/mL Total Protein 5.8 L (6.3-8.2) g/dL Albumin 3.3 L (3.5-5.0) g/dL Urine Appearance (Clear) Urine Protein (Negative) Urine Glucose (UA) (Negative) Urine Ketones (Negative) Urine Blood (Negative) Urine RBC (0-5) /hpf Ur Squamous Epith Cells (0-4) /hpf Urine Bacteria (None) /hpf Urine Mucus (None) /hpf CT scan - abdomen: report reviewed (Dr. Peter) Assessment and Plan (1) Epigastric pain Narrative/Plan: 51-year-old female with a history of MTHFR clotting disorder maintained on Coumadin, chronic diarrhea since undergoing cholecystectomy presents with severe epigastric pain with exacerbation of acute on chronic nonbloody diarrhea with clinical improvement. Noncontrast CT reports possible transverse colitis. Epigastric pain diarrhea improving. Possible self limiting infectious colitis possible inflammatory. Possible gastroenteritis. Status: Acute (2) Diarrhea Status: Acute Plan: 1. Advance diet as tolerated. Continue supportive measures. Symptoms seem to be improving. EGD colonoscopy was discussed with patient at this time she would like to pursue as an outpatient unless her symptoms worsen. If patient continues to improve would advise return to the GI office in 1-2 weeks after discharge for reevaluation and discussion of outpatient endoscopy evaluation. Thank you for this kind referral and the opportunity to participate in the care of your patient. This consultation was discussed with Dr. Peter. The impression and plan of care have been directed as dictated.
[2016-10-23] MEDS ORDERED: POTASSIUM CHLORIDE ER 20 MEQ TAB.ER PO STA (15:18)
[2016-10-23 15:43] LABS: INR 1.5 (<1.2); Prothrombin Time 14.4 sec (9.0-12.0)
--- NOTE | 2016-10-23 16:33 | P.PN ---
Progress Note - Text Date of service: 10/23/2016 Presenting complaint abdominal pain Interval history This is a 51-year-old patient of Dr. Petersen. Chronic stable medical conditions include diabetes mellitus type 2, DVT, hyperlipidemia, hypertension, PE, [facility] [place] clotting disorder, at her baseline has diarrhea. Patient woke up early hours of the morning started having nausea vomiting increasing abdominal pain some chills. Vomiting settle down but patient still Having nausea and increasing abdominal pain. Patient at baseline has a few stools a day. Computed tomography scan in the ER showed evidence of colitis patient admitted for the same. 10/23/2016: Abdominal pain is somewhat better. Nausea is somewhat better. Laying in bed. Had some loose stools. Did take some ice chips. Review of systems: Was done for constitutional, cardiovascular, GI, pulmonary. relevant finding as above Current medications reviewed that included IV Zosyn and Coumadin On examination: Vitals temperature 101.1 T-max, pulse 69, disposition, blood pressure 126/72, pulse of 96% room air, Gen. appearance laying in bed tired appearing Eyes-pupils equal conjunctiva normal Respiratory-rate normal, decreased breath sounds Cardiovascular-first seconds are normal, no edema Abdomen-soft diffuse tenderness no guarding or rigidity, liver spleen not palpable Psychiatry-AO 3 mood affect anxious appearing Investigations: White count 12.4, hemoglobin 14.2, potassium 3.4, BUN/creatinine normal, INR 1.5 Computed tomography scan of the abdomen suggestive of diffuse small wall thickening of the transverse colon Assessment: Acute colitis likely infectious in etiology, causing sepsis upon presentation, slow to respond Hyperlipidemia Essential hypertension [facility] clotting disorder Chronic DVT PE on Coumadin Obesity BMI 30 Plan: Continue with IV fluids, IV Zosyn, follow Coumadin. GI was consulted. Patient encouraged to be up in a chair. Repeat labs in the morning.
[2016-10-23] MEDS ORDERED: WARFARIN 5 MG TAB PO SCH (18:00)
[2016-10-24] MEDS: PIPERACILLIN-TAZOBACTAM 3.375 GM in DEXTROSE/WATER 1 50ML.BAG IVPB SCH ×2 (00:52→08:19)
[2016-10-24] MEDS: MORPHINE SULFATE 4 MG/ML SYRINGE IV PRN ×3 (04:10→12:56)
[2016-10-24] MEDS: LEVOTHYROXINE 50 MCG TAB PO SCH (06:49)
[2016-10-24] MEDS: SODIUM CHLORIDE 0.9% 1,000 ML IV SCH ×2 (06:50→08:40)
[2016-10-24 07:36] VITALS: BP 143/95; PULSE 53; TEMP 97.1
[2016-10-24 07:39] VITALS: RESP 18
[2016-10-24] MEDS: DULoxetine HCL 60 MG CAPSULE.DR PO SCH (08:19)
[2016-10-24] MEDS: LOSARTAN 50 MG TAB PO SCH (08:20)
[2016-10-24] MEDS: ATENOLOL 25 MG TAB PO SCH (08:20)
[2016-10-24] MEDS: BUTALB/APAP/CAFF 50-325-40MG TAB PO PRN (08:22)
[2016-10-24] MEDS: PREGABALIN 75 MG CAP PO SCH (08:23)
[2016-10-24] MEDS: KETOROLAC 30 MG/ML 1 ML VIAL IVP PRN (08:28)
--- NOTE | 2016-10-24 09:47 | P.PN ---
Subjective Principal diagnosis: Colitis abdominal pain 51-year-old female admitted with abdominal pain diarrhea possible colitis per CT. Patient feels better this point. Tolerating regular diet. Diarrhea improved. Afebrile. Objective - Vital Signs Vital signs: Vital Signs Temp 97.1 F L 10/24/16 07:00 Pulse 53 L 10/24/16 07:00 Resp 18 10/24/16 07:00 BP 143/95 10/24/16 07:00 Pulse Ox 96 10/24/16 07:00 Intake & Output 10/23/16 10/24/16 10/24/16 18:59 06:59 18:59 Weight 81.647 kg Other: Voiding Method Toilet # Voids 3 0 # Bowel Movements 0 - Exam General appearance: The patient is alert, oriented, in no acute distress. HET: Head is normocephalic and atraumatic. Pupils are equal and reactive. Oropharynx is clear without lesions. Neck: Supple without lymphadenopathy. Trachea midline. Heart: S1 S2. Regular rate and rhythm. Lungs: No crackles or wheezes are heard. Abdomen: Soft, nontender, nondistended with bowel sounds. No peritoneal signs. No palpable organomegaly or masses. Extremities: Normal skin color and turgor. No cyanosis, rash, ulceration, clubbing, or edema. Radial and pedal pulses are 2/4 bilaterally. Neurological: No focal deficits. Strength and sensation are grossly intact. - Labs CBC & Chem 7: 10/23/16 08:05 10/23/16 08:05 Labs: Abnormal Lab Results - Last 24 Hours (Table) 10/23/16 Range/Units 15:29 PT 14.4 H (9.0-12.0) sec INR 1.5 H (<1.2) Assessment and Plan (1) Epigastric pain Narrative/Plan: 51-year-old female with a history of MTHFR clotting disorder maintained on Coumadin, chronic diarrhea since undergoing cholecystectomy presents with severe epigastric pain with exacerbation of acute on chronic nonbloody diarrhea with clinical improvement. Noncontrast CT reports possible transverse colitis. Epigastric pain diarrhea improving. Possible self limiting infectious colitis possible inflammatory. Possible gastroenteritis. Status: Acute (2) Diarrhea Status: Acute Plan: 1. Continue with present medical therapy. Discharge per medicine. Follow-up in 10-14 days GI office for reevaluation and discussion of outpatient colonoscopy. Assessment and plan a care discussed with Dr. Peter
[2016-10-24 10:09] LABS: INR 1.9 (<1.2); Prothrombin Time 18.4 sec (9.0-12.0)
[2016-10-24 10:10] LABS: Basophils % (A) 0 %; CH 30.7; Eosinophils # (A) 0.1 k/uL (0-0.7); Eosinophils % (A) 1 %; HCT 41.2 % (34.0-46.0); HDW 2.23; HGB 13.4 gm/dL (11.4-16.0); Luc # (Auto) 0.17; Luc % (Auto) 2; Lymphocytes # (A) 2.3 k/uL (1.0-4.8); Lymphocytes % (A) 29 %; MCH 30.4 pg (25.0-35.0); MCHC 32.6 g/dL (31.0-37.0); MCV 93.5 fL (80.0-100.0); Mean Platelet Volume 7.3; Monocytes # (A) 0.4 k/uL (0-1.0); Monocytes % (A) 5 %; Neutrophils # (A) 4.9 k/uL (1.3-7.7); Neutrophils % (A) 62 %; RBC 4.41 m/uL (3.80-5.40); RDW 14.5 % (11.5-15.5); WBC 7.9 k/uL (3.8-10.6); WBC (Perox) 8.08
[2016-10-24 10:29] LABS: Anion Gap 6 mmol/L; Blood Urea Nitrogen 9 mg/dL (7-17); Calcium 8.2 mg/dL (8.4-10.2); Carbon Dioxide 25 mmol/L (22-30); Chloride 108 mmol/L (98-107); Glucose 127 mg/dL (74-99); Non-African American GFR(MDRD) >60 (>60 ml/min/1.73 sqM); Potassium 3.6 mmol/L (3.5-5.1); Sodium 139 mmol/L (137-145)
--- NOTE | 2016-10-24 14:11 | P.DS ---
Providers Date of admission: 10/22/16 17:25 Expected date of discharge: 10/24/16 Attending physician: Saeed Crowe Consults: 10/22/16 17:26 Consult Physician Routine Consulting Provider: Patricia Peter Consult Reason/Comments: Colitis Do you want consulting provider notified?: Yes Primary care physician: [place] Hospital Course: Hospital course: Patient presented with nausea vomiting abdominal pain chills some diarrhea. Computed tomography scan confirmed transverse colitis. Responded well to IV antibiotics. Including IV Zosyn. By the time of discharge tolerating a soft bland diet no fever or white count. Not had a baseline patient has to 3 bowel movements a day since her cholecystectomy Seen by Dr. Fiordaliza Peter from GI, or could be discharged On examination: Abdomen soft nontender, cardiovascular first seconds are normal, lungs are clear Final diagnosis: Acute transverse colitis likely infectious in etiology, causing sepsis upon presentation, slow to respond Hyperlipidemia Essential hypertension MTH FR clotting disorder Chronic DVT PE on Coumadin Obesity BMI 30 Plan - Discharge Summary New Discharge Prescriptions: New Amoxicillin/Potassium Clav [Augmentin 875-125 Tablet] 1 tab PO Q12HR #14 tab Continue Pregabalin [Lyrica] 75 mg PO BID DULoxetine HCL [Cymbalta] 60 mg PO BID Levothyroxine Sodium [Synthroid] 50 mcg PO DAILY Butalb/Acetaminophen/Caffeine [Fioricet 50-325-40] 1 tab PO Q6HR PRN PRN Reason: Headache Atenolol [Tenormin] 25 mg PO BID Warfarin Sodium [Coumadin] 5 mg PO Q48H Losartan Potassium 100 mg PO DAILY HYDROcodone/APAP 10-325MG [[place] 10-325] 1 tab PO QID Warfarin Sodium 10 mg PO Q48H Discharge Medication List DULoxetine HCL [Cymbalta] 60 mg PO BID 05/23/16 [History] Pregabalin [Lyrica] 75 mg PO BID 05/23/16 [History] Atenolol [Tenormin] 25 mg PO BID 10/22/16 [History] Butalb/Acetaminophen/Caffeine [Fioricet 50-325-40] 1 tab PO Q6HR PRN 10/22/16 [ History] HYDROcodone/APAP 10-325MG [[place] 10-325] 1 tab PO QID 10/22/16 [History] Levothyroxine Sodium [Synthroid] 50 mcg PO DAILY 10/22/16 [History] Losartan Potassium 100 mg PO DAILY 10/22/16 [History] Warfarin Sodium 10 mg PO Q48H 10/22/16 [History] Warfarin Sodium [Coumadin] 5 mg PO Q48H 10/22/16 [History] Amoxicillin/Potassium Clav [Augmentin 875-125 Tablet] 1 tab PO Q12HR #14 tab 05/11 [Rx] Follow up Appointment(s)/Referral(s): Patricia Peter MD [STAFF PHYSICIAN] - 10 Days (1 to 2 weeks, possible need for scope studies as outpatient) Eusebio Martin MD [Primary Care Provider] - 3 Days Ambulatory/Diagnostic Orders: Basic Metabolic Panel [LAB.AMB] Time Frame: 3 Days, Location: Determined By Patient Activity/Diet/Wound Care/Special Instructions: Soft bland
[2016-10-24] MEDS ORDERED: WARFARIN 10 MG TAB PO SCH (18:00)
== END 2016-10-24 14:36 | disposition home or self-care (01) | DRG 872 ==
LOC: EC 11:11 → 4MS4W 17:25
PROVIDERS: ADMIT Hospitalist; ATTEND Hospitalist
DX: A41.9 Sepsis, unspecified organism (principal); D68.9 Coagulation defect, unspecified; A09 Infectious gastroenteritis and colitis, unspecified; I82.509 Chronic embolism and thrombosis of unspecified deep veins of unspecified lower extremity; I10 Essential (primary) hypertension; E03.9 Hypothyroidism, unspecified; E11.9 Type 2 diabetes mellitus without complications; E66.9 Obesity, unspecified; E78.5 Hyperlipidemia, unspecified; F32.9 Major depressive disorder, single episode, unspecified; K40.90 Unilateral inguinal hernia, without obstruction or gangrene, not specified as recurrent; F17.210 Nicotine dependence, cigarettes, uncomplicated; Z68.30 Body mass index [BMI] 30.0-30.9, adult; Z79.01 Long term (current) use of anticoagulants; Z79.899 Other long term (current) drug therapy; Z82.49 Family history of ischemic heart disease and other diseases of the circulatory system
CPT/HCPCS: 36415; 71020; 74176; 80048; 80053; 81001; 83605; 83690; 83735; 83880; 84100; 84484; 85025; 85610; 96361; 96365; 96375; 96376; 99285

== ENCOUNTER → 2017-10-23 | Outpatient (CLI) | payer OTHER ==
--- NOTE | 2017-10-23 21:23 | MR ---
EXAMINATION TYPE: MR knee LT wo con DATE OF EXAM: 10/23/2017 COMPARISON: X-ray dated 06/22/2016 HISTORY: Lt knee pain x 3 years TECHNIQUE: Multiplanar, multisequence imaging of the left knee is performed without IV contrast. FINDINGS: There is metallic artifacts suggestive of previous surgery. The patella is high riding in position but the quadriceps and patellar tendons are intact. No sizable bursal fluid collections seen. Grade II chondromalacia of the patellar cartilage noted. On the axial images appears to be metallic artifact overlying the lateral patellar facet correlate fo r previous surgery or less likely foreign body There is abnormal signal within the tibia likely reactive to previous surgery. Benign cystic change n oted. There is nonvisualization of the ACL suggestive of previous tear. PCL appears to be intact. There is significant narrowing of the joint spaces with grade III chondromalacia involving the articu lar medial and lateral femoral cartilage. Medial collateral and lateral collateral ligaments are intact. Lateral meniscus has a normal appearance. Medial meniscus demonstrates abnormal morphology suspicious for degenerative tear. No sizable popliteal fossa cyst. IMPRESSION: 1. Metallic artifact correlate for previous surgery. ACL is nonvisualized suggestive of previous tear . 2. Osteoarthritic changes with grade III chondromalacia involving the medial and lateral femoral gerardo cular cartilage. 3. Abnormal morphology of the posterior horn and body of the medial meniscus suggestive of degenerati ve tear.
--- NOTE | 2017-10-23 21:31 | MR ---
EXAMINATION TYPE: MR knee RT wo con DATE OF EXAM: 10/23/2017 COMPARISON: X-ray dated 06/22/2016 HISTORY: Rt knee pain x 3 years TECHNIQUE: Multiplanar, multisequence imaging of the right knee is performed without IV contrast. FINDINGS: There is a large popliteal fossa cyst measuring 1 x 2.5 x 5.7 cm. Anterior cruciate and posterior cruciate ligaments appear intact. There is narrowing of the joint spaces with abnormal marrow signal alteration involving the lateral t ibial plateau likely related bone marrow edema which is most likely reactive. Marrow edema extends in to the intercondylar portion of the proximal tibia and along the medial tibial plateau. Findings comp atible with nonspecific edema likely reactive. There is complete loss of articular cartilage along the lateral compartment of both the femur and tib ia. Grade III chondromalacia involving the articular tibial and femoral medial cartilage. Lateral collateral and medial collateral ligaments are intact. Patella is high riding in position but the patellar quadriceps tendons appear intact. No sizable burs al fluid collection. Areas of grade II chondromalacia of the medial patellar facet. There is abnormal morphology of the posterior horn the lateral meniscus body likely in the basis of d egenerative tear. Medial meniscus demonstrates intrasubstance signal along the peripheral margin suspicious for a perip heral tear. Degenerative tear suspected involving the body and posterior horn of the lateral meniscu s.. IMPRESSION: 1. Advanced osteoarthritis with chondromalacia as discussed above, with particular attention to the l ateral compartment of the knee with complete loss of articular cartilage of both tibia and femur. 2. Marked abnormal morphology of the posterior horn and body of the lateral meniscus with findings hzang ggestive of degenerative tear. 3. Findings suspicious for peripheral tear posterior horn medial meniscus. 4. Popliteal fossa cyst measuring 1 x 2.5 x 5.7 cm.
== END | disposition home or self-care (01) ==
LOC: RADMRIMAIN 19:52
PROVIDERS: ATTEND Internal Medicine
DX: M17.12 Unilateral primary osteoarthritis, left knee (principal); M94.262 Chondromalacia, left knee

== ENCOUNTER → 2017-11-27 | Outpatient (CLI) | payer OTHER ==
[2017-11-27 10:11] LABS: Basophils % (A) 0 %; Eosinophils # (A) 0.2 k/uL (0-0.7); Eosinophils % (A) 3 %; HCT 45.8 % (34.0-46.0); HGB 14.6 gm/dL (11.4-16.0); Lymphocytes # (A) 2.4 k/uL (1.0-4.8); Lymphocytes % (A) 31 %; MCH 29.8 pg (25.0-35.0); MCHC 31.9 g/dL (31.0-37.0); MCV 93.5 fL (80.0-100.0); Mean Platelet Volume 6.4; Monocytes # (A) 0.5 k/uL (0-1.0); Monocytes % (A) 7 %; Neutrophils # (A) 4.4 k/uL (1.3-7.7); Neutrophils % (A) 58 %; Platelet Count 284 k/uL (150-450); RDW 12.8 % (11.5-15.5); WBC 7.7 k/uL (3.8-10.6)
[2017-11-27 11:02] LABS: Albumin 3.9 g/dL (3.5-5.0); Calcium 8.7 mg/dL (8.4-10.2); Potassium 4.1 mmol/L (3.5-5.1); Total Bilirubin 0.4 mg/dL (0.2-1.3); Total Protein 6.7 g/dL (6.3-8.2)
[2017-11-27 11:08] LABS: T4, Free (Free Thyroxine) 1.38 ng/dL (0.78-2.19)
== END | disposition home or self-care (01) ==
LOC: LABWHC1 07:59
PROVIDERS: ATTEND Internal Medicine
DX: I10 Essential (primary) hypertension (principal); E11.9 Type 2 diabetes mellitus without complications; E03.9 Hypothyroidism, unspecified
CPT/HCPCS: 36415; 80053; 80061; 83036; 84439; 84443; 84481; 85025

== ENCOUNTER → 2017-11-27 | Outpatient (CLI) | payer OTHER ==
--- NOTE | 2017-11-27 12:36 | XR ---
EXAMINATION TYPE: XR shoulder complete LT DATE OF EXAM: 11/27/2017 COMPARISON: NONE HISTORY: 52-year-old female fall and pain, rotator cuff tear TECHNIQUE: 3 views FINDINGS: There may be mild distal clavicular osteolysis. Subacromial space is preserved. Smooth delineation to the greater tuberosity. No acute fracture, subluxation, or dislocation. IMPRESSION: 1. Possible finding of slight distal clavicular osteolysis. Some differential considerations include posttraumatic osteolysis, RA, connective tissue disorders, and hyperparathyroidism. Correlate for any point tenderness in this location to exclude this possibility. 2. Otherwise, no acute osseous abnormality seen.
--- NOTE | 2017-11-27 14:18 | XR ---
EXAMINATION TYPE: XR wrist complete RT DATE OF EXAM: 11/27/2017 COMPARISON: Hand radiographs 03/10/2014 HISTORY: 52-year-old female with right wrist pain after fall TECHNIQUE: 4 views FINDINGS: Borderline widened appearance of the scapholunate interval at 2.2 mm. There is negative ulnar varianc e and degenerative changes at the distal radioulnar joint and some remodeling at the sigmoid notch. M ild degenerative change at the first CMC joint. No acute fracture, subluxation, or dislocation seen. IMPRESSION: 1. Borderline widening at the scapholunate interval suggests age indeterminate ligamentous sprain. Co rrelate for any instability. 2. Negative ulnar variance with ulnar impingement with DRUJ OA. 3. No acute osseous abnormality seen.
== END | disposition home or self-care (01) ==
LOC: RADXRMAIN 08:35
PROVIDERS: ATTEND Internal Medicine
DX: M19.031 Primary osteoarthritis, right wrist (principal); M25.831 Other specified joint disorders, right wrist; M75.102 Unspecified rotator cuff tear or rupture of left shoulder, not specified as traumatic

== ENCOUNTER → 2018-03-12 | Outpatient (CLI) | payer OTHER ==
[2018-03-12 12:55] LABS: INR 0.9 (<1.2); Prothrombin Time 9.4 sec (9.0-12.0)
== END | disposition home or self-care (01) ==
LOC: LABWHC1 12:26
PROVIDERS: ATTEND Psychiatry & Neurology Neurology
DX: D65 Disseminated intravascular coagulation [defibrination syndrome] (principal)
CPT/HCPCS: 36415; 85610

== ENCOUNTER → 2019-02-06 | Outpatient (CLI) | payer OTHER ==
--- NOTE | 2019-02-10 10:10 | MM ---
Reason for exam: screening (asymptomatic). Last mammogram was performed 8 years and 7 months ago. History: Patient is postmenopausal. Physical Findings: A clinical breast exam by your physician is recommended on an annual basis and results should be correlated with mammographic findings. MG 3D Screening Mammo W/Cad Bilateral CC and MLO view(s) were taken. Prior study comparison: June 29, 2010, bilateral digital screening mammo w/CAD. There are scattered fibroglandular densities. There is chronic nodularity in the left breast. Tiny 4mm circumscribed isodense nodule central posterior right breast appears new. A benign cyst is suspected. 6 month follow up recommended. ASSESSMENT: Probably benign, BI-RAD 3 RECOMMENDATION: Follow-up diagnostic mammogram of the right breast in 6 months.
== END | disposition home or self-care (01) ==
LOC: RADMAMWWP 14:55
PROVIDERS: ATTEND Internal Medicine
DX: Z12.31 Encounter for screening mammogram for malignant neoplasm of breast (principal)
CPT/HCPCS: 77063; 77067

== ENCOUNTER 2019-06-07 12:22 | Inpatient (IN) | payer MEDICARE, OTHER ==
[2019-06-07] MEDS ORDERED: SODIUM CHLORIDE 0.9% 1,000 ML IV STA (12:57)
[2019-06-07] MEDS ORDERED: HYDROmorphone 0.5 MG/0.5 ML SYRINGE IVP STA (12:57)
[2019-06-07] MEDS ORDERED: PANTOPRAZOLE 40 MG/10 ML VIAL IVP STA (12:57)
[2019-06-07] MEDS ORDERED: KETOROLAC 30 MG/ML 1 ML VIAL IVP STA (12:58)
[2019-06-07] MEDS ORDERED: ONDANSETRON 4 MG/2 ML VIAL IVP STA (12:58)
--- NOTE | 2019-06-07 13:04 | ED ---
General Adult HPI - General Chief complaint: GI Bleed Stated complaint: Rectal bleed Time Seen by Provider: 06/07/19 12:32 Source: patient, RN notes reviewed, old records reviewed Mode of arrival: wheelchair Limitations: no limitations - History of Present Illness Initial comments: Patient is a 53-year-old female who presents emergency department today for evaluation for concerns for GI bleed. Patient reports that for the past 2 days she's been having bloody stool. She complains of left lower quadrant abdominal pain. Symptoms seem to worsen after she seemed constipated for a few days. She eventually had a bowel movement and this pain started afterwards. Patient reports that she has had some chills, has no fever at this time. She denies any dizziness or lightheadedness. She was previously on blood thinners but has stopped them 3 weeks ago due to a PE. She denies any chest pain or shortness of breath. - Related Data Home Medications Medication Instructions Recorded Confirmed DULoxetine HCL [Cymbalta] 60 mg PO BID 05/23/16 10/22/16 Pregabalin [Lyrica] 75 mg PO BID 05/23/16 10/22/16 Atenolol [Tenormin] 25 mg PO BID 10/22/16 10/22/16 Butalb/Acetaminophen/Caffeine 1 tab PO Q6HR PRN 10/22/16 10/22/16 [Fioricet 50-325-40] HYDROcodone/APAP 10-325MG [[place] 1 tab PO QID 10/22/16 10/22/16 10-325] Levothyroxine Sodium [Synthroid] 50 mcg PO DAILY 10/22/16 10/22/16 Losartan Potassium 100 mg PO DAILY 10/22/16 10/22/16 Warfarin Sodium 10 mg PO Q48H 10/22/16 10/22/16 Warfarin Sodium [Coumadin] 5 mg PO Q48H 10/22/16 10/22/16 Previous Rx's Medication Instructions Recorded Amoxicillin/Potassium Clav 1 tab PO Q12HR #14 tab 10/24/16 [Augmentin 875-125 Tablet] Allergies Allergy/AdvReac Type Severity Reaction Status Date / Time No Known Allergies Allergy Verified 06/07/19 12:26 Review of Systems ROS Statement: Those systems with pertinent positive or pertinent negative responses have been documented in the HPI. ROS Other: All systems not noted in ROS Statement are negative. Past Medical History Past Medical History: Blood Disorder, Deep Vein Thrombosis (DVT), Hyperlipidemia, Hypertension, Pulmonary Embolus (PE) Additional Past Medical History / Comment(s): rt inguinal hernia,MTHFR gene- clotting disorder-developed DVT & PE after knee surg., frequent diarrhea, no longer taking anything for diabetes-was borderline,thinks steroids Feb 2016 History of Any Multi-Drug Resistant Organisms: None Reported Past Surgical History: Cholecystectomy, Orthopedic Surgery, Tubal Ligation, Uterine Ablation Additional Past Surgical History / Comment(s): hand surg & knee surg. Past Anesthesia/Blood Transfusion Reactions: No Reported Reaction Past Psychological History: Depression Smoking Status: Current every day smoker Past Alcohol Use History: None Reported Past Drug Use History: None Reported - Past Family History Mother Family Medical History: Asthma Father History Unknown: Yes General Exam - General Exam Comments Initial Comments: Patient is an ill-appearing 53-year-old female. Limitations: no limitations General appearance: alert, in no apparent distress Head exam: Present: atraumatic, normocephalic, normal inspection Eye exam: Present: normal appearance, PERRL, EOMI. Absent: scleral icterus, conjunctival injection, periorbital swelling ENT exam: Present: normal exam, mucous membranes moist Neck exam: Present: normal inspection. Absent: tenderness, meningismus, lymphadenopathy Respiratory exam: Present: normal lung sounds bilaterally. Absent: respiratory distress, wheezes, rales, rhonchi, stridor Cardiovascular Exam: Present: regular rate, normal rhythm, normal heart sounds. Absent: systolic murmur, diastolic murmur, rubs, gallop, clicks GI/Abdominal exam: Present: soft, tenderness (LLQ tenderness and guarding), normal bowel sounds. Absent: distended, guarding, rebound, rigid Back exam: Present: normal inspection Neurological exam: Present: alert, oriented X3, CN II-XII intact Course Vital Signs 06/07/19 06/07/19 12:24 12:28 Temperature 98.1 F Pulse Rate 112 H Respiratory 20 Rate Blood Pressure 130/92 O2 Sat by Pulse 97 Oximetry Medical Decision Making - Medical Decision Making 53-year-old female presents with 2 days of bloody mucousy stools. Complaint of severe left-sided abdominal pain. She is given IV fluids labwork obtained. She has evidence of leukocytosis. White blood cell count is 21,000. She is mucousy bloody stool on fecal occult test. Patient CT scan shows evidence of diffuse colitis. Patient started on IV Zosyn. Patient will be admitted this time, and occur liquid diet. We'll consult to GI. Patient is agreeable to admission. - Lab Data Result diagrams: 06/07/19 12:02 06/07/19 12:02 Lab Results 06/07/19 06/07/19 06/07/19 Range/Units 12:02 12:02 12:02 WBC 21.4 H (3.8-10.6) k/uL RBC 4.89 (3.80-5.40) m/uL Hgb 15.4 (11.4-16.0) gm/dL Hct 44.7 (34.0-46.0) % MCV 91.4 (80.0-100.0) fL MCH 31.5 (25.0-35.0) pg MCHC 34.5 (31.0-37.0) g/dL RDW 12.7 (11.5-15.5) % Plt Count 327 (150-450) k/uL Neutrophils % 86 % Lymphocytes % 8 % Monocytes % 4 % Eosinophils % 0 % Basophils % 0 % Neutrophils # 18.5 H (1.3-7.7) k/uL Lymphocytes # 1.7 (1.0-4.8) k/uL Monocytes # 0.9 (0-1.0) k/uL Eosinophils # 0.0 (0-0.7) k/uL Basophils # 0.0 (0-0.2) k/uL PT 10.8 (9.0-12.0) sec INR 1.0 (<1.2) APTT 22.1 (22.0-30.0) sec Sodium 135 L (137-145) mmol/L Potassium 3.8 (3.5-5.1) mmol/L Chloride 102 (98-107) mmol/L Carbon Dioxide 20 L (22-30) mmol/L Anion Gap 13 mmol/L BUN 15 (7-17) mg/dL Creatinine 0.77 (0.52-1.04) mg/dL Est GFR (CKD-EPI)AfAm >90 (>60 ml/min/1.73 sqM) Est GFR (CKD-EPI)NonAf 89 (>60 ml/min/1.73 sqM) Glucose 134 H (74-99) mg/dL Plasma Lactic Acid Corky (0.7-2.0) mmol/L Calcium 9.5 (8.4-10.2) mg/dL Magnesium 1.9 (1.6-2.3) mg/dL Total Bilirubin 1.0 (0.2-1.3) mg/dL AST 46 H (14-36) U/L ALT 27 (4-34) U/L Alkaline Phosphatase 146 H (38-126) U/L Troponin I (0.000-0.034) ng/mL Total Protein 6.6 (6.3-8.2) g/dL Albumin 4.1 (3.5-5.0) g/dL Stool Occult Blood (Negative) Blood Type Blood Type Confirm Blood Type Recheck Bld Type Recheck Status Antibody Screen Spec Expiration Date 06/07/19 06/07/19 06/07/19 Range/Units 12:02 12:02 12:40 WBC (3.8-10.6) k/uL RBC (3.80-5.40) m/uL Hgb (11.4-16.0) gm/dL Hct (34.0-46.0) % MCV (80.0-100.0) fL MCH (25.0-35.0) pg MCHC (31.0-37.0) g/dL RDW (11.5-15.5) % Plt Count (150-450) k/uL Neutrophils % % Lymphocytes % % Monocytes % % Eosinophils % % Basophils % % Neutrophils # (1.3-7.7) k/uL Lymphocytes # (1.0-4.8) k/uL Monocytes # (0-1.0) k/uL Eosinophils # (0-0.7) k/uL Basophils # (0-0.2) k/uL PT (9.0-12.0) sec INR (<1.2) APTT (22.0-30.0) sec Sodium (137-145) mmol/L Potassium (3.5-5.1) mmol/L Chloride (98-107) mmol/L Carbon Dioxide (22-30) mmol/L Anion Gap mmol/L BUN (7-17) mg/dL Creatinine (0.52-1.04) mg/dL Est GFR (CKD-EPI)AfAm (>60 ml/min/1.73 sqM) Est GFR (CKD-EPI)NonAf (>60 ml/min/1.73 sqM) Glucose (74-99) mg/dL Plasma Lactic Acid Corky 1.8 (0.7-2.0) mmol/L Calcium (8.4-10.2) mg/dL Magnesium (1.6-2.3) mg/dL Total Bilirubin (0.2-1.3) mg/dL AST (14-36) U/L ALT (4-34) U/L Alkaline Phosphatase (38-126) U/L Troponin I <0.012 (0.000-0.034) ng/mL Total Protein (6.3-8.2) g/dL Albumin (3.5-5.0) g/dL Stool Occult Blood (Negative) Blood Type Blood Type Confirm A Positive Blood Type Recheck Bld Type Recheck Status Antibody Screen Spec Expiration Date 06/07/19 06/07/19 Range/Units 12:42 14:08 WBC (3.8-10.6) k/uL RBC (3.80-5.40) m/uL Hgb (11.4-16.0) gm/dL Hct (34.0-46.0) % MCV (80.0-100.0) fL MCH (25.0-35.0) pg MCHC (31.0-37.0) g/dL RDW (11.5-15.5) % Plt Count (150-450) k/uL Neutrophils % % Lymphocytes % % Monocytes % % Eosinophils % % Basophils % % Neutrophils # (1.3-7.7) k/uL Lymphocytes # (1.0-4.8) k/uL Monocytes # (0-1.0) k/uL Eosinophils # (0-0.7) k/uL Basophils # (0-0.2) k/uL PT (9.0-12.0) sec INR (<1.2) APTT (22.0-30.0) sec Sodium (137-145) mmol/L Potassium (3.5-5.1) mmol/L Chloride (98-107) mmol/L Carbon Dioxide (22-30) mmol/L Anion Gap mmol/L BUN (7-17) mg/dL Creatinine (0.52-1.04) mg/dL Est GFR (CKD-EPI)AfAm (>60 ml/min/1.73 sqM) Est GFR (CKD-EPI)NonAf (>60 ml/min/1.73 sqM) Glucose (74-99) mg/dL Plasma Lactic Acid Corky (0.7-2.0) mmol/L Calcium (8.4-10.2) mg/dL Magnesium (1.6-2.3) mg/dL Total Bilirubin (0.2-1.3) mg/dL AST (14-36) U/L ALT (4-34) U/L Alkaline Phosphatase (38-126) U/L Troponin I (0.000-0.034) ng/mL Total Protein (6.3-8.2) g/dL Albumin (3.5-5.0) g/dL Stool Occult Blood Positive H (Negative) Blood Type A Positive Blood Type Confirm Blood Type Recheck No Previous Record Bld Type Recheck Status CABO Indicated Antibody Screen NEGATIVE Spec Expiration Date 06/10/2019 - 2302 - Radiology Data Radiology results: report reviewed CT shows severe diffuse colonic wall thickening involving the left colon extending from the splenic flexure to the sigmoid colon. There is diverticula given diffuse nature a colitis is felt to be more likely than diverticulitis. Small amount of free fluid in pelvis with no diagnostic evidence of abscess. Disposition Clinical Impression: Colitis, Intractable abdominal pain, Bloody stool Disposition: ADMITTED IP TO THIS [facility] Condition: Stable Is patient prescribed a controlled substance at d/c from ED?: No Referrals: Eusebio Martin MD [Primary Care Provider] - 1-2 days Time of Disposition: 15:05
[2019-06-07 13:32] LABS: Basophils % (A) 0 %; Eosinophils % (A) 0 %; HCT 44.7 % (34.0-46.0); HGB 15.4 gm/dL (11.4-16.0); Lymphocytes # (A) 1.7 k/uL (1.0-4.8); Lymphocytes % (A) 8 %; MCH 31.5 pg (25.0-35.0); MCHC 34.5 g/dL (31.0-37.0); MCV 91.4 fL (80.0-100.0); Mean Platelet Volume 7.8; Monocytes # (A) 0.9 k/uL (0-1.0); Monocytes % (A) 4 %; Neutrophils # (A) 18.5 k/uL (1.3-7.7); Neutrophils % (A) 86 %; Platelet Count 327 k/uL (150-450); RBC 4.89 m/uL (3.80-5.40); RDW 12.7 % (11.5-15.5); WBC 21.4 k/uL (3.8-10.6)
[2019-06-07 13:43] LABS: ALT 27 U/L (4-34); AST 46 U/L (14-36); African American GFR (CKD) >90 (>60 ml/min/1.73 sqM); Albumin 4.1 g/dL (3.5-5.0); Alkaline Phosphatase 146 U/L (38-126); Anion Gap 13 mmol/L; Blood Urea Nitrogen 15 mg/dL (7-17); Calcium 9.5 mg/dL (8.4-10.2); Carbon Dioxide 20 mmol/L (22-30); Chloride 102 mmol/L (98-107); Glucose 134 mg/dL (74-99); Magnesium 1.9 mg/dL (1.6-2.3); Non-African American GFR(CKD) 89 (>60 ml/min/1.73 sqM); Potassium 3.8 mmol/L (3.5-5.1); Sodium 135 mmol/L (137-145); Total Protein 6.6 g/dL (6.3-8.2)
[2019-06-07 13:47] LABS: Partial Thromboplastin Time 22.1 sec (22.0-30.0); Prothrombin Time 10.8 sec (9.0-12.0)
--- NOTE | 2019-06-07 13:55 | CT ---
EXAMINATION TYPE: CT abdomen pelvis w con DATE OF EXAM: 06/07/2019 COMPARISON: 10/22/2016 HISTORY: llq pain CT DLP: 1422.2 mGycm Automated exposure control for dose reduction was used. CONTRAST: CT scan of the abdomen pelvis is performed with IV Contrast, patient injected with 100 mL of Isovue 3 00. FINDINGS- LUNG BASES-subsegmental changes at the lung bases most typical of atelectasis.. LIVER/GB-postcholecystectomy changes noted. Mild central biliary dilation likely secondary to postcho lecystectomy changes.. PANCREAS- No gross abnormality is seen. SPLEEN- No gross abnormality is seen. ADRENALS- No gross abnormality is seen. KIDNEYS/BLADDER- no hydronephrosis nephrolithiasis or renal mass. BOWEL-there is diffuse fall severe thickening with pericolonic inflammatory change extending from the distal transverse colon and splenic flexure through the left colon and sigmoid colon. Small amount o f fluid in the pelvis noted. Appendix not seen with certainty.. Small hiatal hernia noted. LYMPH NODES- No greater than 1cm abdominal or pelvic lymph nodes areappreciated. OSSEOUS STRUCTURES-multilevel hypertrophic and degenerative change.. OTHER- aorta of normal caliber. No free fluid. IMPRESSION- 1. Severe diffuse colonic wall thickening involving this left colon extending from the splenic flexur e to the sigmoid colon. There are diverticula however, given the diffuse nature 8 colitis is felt to BE more likely than diverticulitis. A small amount of free fluid in the pelvis with no diagnostic gabo dence of abscess.
[2019-06-07] MEDS ORDERED: PIPERACILLIN-TAZOBACTAM 3.375 GM in SODIUM CHLORIDE 0.9% 100 ML IVPB STA (14:50)
[2019-06-07] MEDS ORDERED: NALOXONE 0.4 MG/ML 1 ML VIAL IV PRN ×2 (15:05→15:52)
[2019-06-07] MEDS ORDERED: ACETAMINOPHEN TAB 325 MG TAB PO PRN (15:05)
[2019-06-07] MEDS ORDERED: ONDANSETRON 4 MG/2 ML VIAL IVP PRN (15:05)
[2019-06-07] MEDS: SODIUM CHLORIDE 0.9% 1,000 ML IV SCH (15:46)
[2019-06-07] MEDS ORDERED: BUTALB/APAP/CAFF 50-325-40MG TAB PO PRN (16:20)
--- NOTE | 2019-06-07 16:24 | P.HPIM ---
History of Present Illness H&P Date: 06/07/19 Chief Complaint: Abdominal pain and rectal bleeding The patient is a 53-year-old female with a past medical history of anxiety depression, essential hypertension, history of venous thromboembolism previously on Coumadin recently discontinued 3 weeks ago who presents to the ER via private vehicle with chief complaint of abdominal pain and rectal bleeding. The patient reports 2 days of left sided inattention intermittent sharp abdominal pain worse normal left lower quadrant with associated nausea. She also reports bright red blood whenever she does Valsalva maneuvers such as bearing down to urinate or to defecate, the patient had noted 4 days of constipation prior to the onset of her symptoms. She denies any fevers chills or night sweats. Review of records O patient has previously had a similar hospitalization in 2017 with diffuse transverse colitis. In the ER the patient a comprehensive workup CT abdomen and pelvis should revealed severe diffuse colon wall thickening involving "extending to the splenic flexure to the sigmoid colon felt to represent sigmoid colitis. The patient was noted to have a leukocytosis of 21,000, serum sodium 135, serum bicarb 20, lactic acid 1.8 AST 46, Stool Hemoccult positive. The patient was given Toradol, normal saline bolus, IV Dilaudid and Zosyn and recommended for admission. 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 Past Anesthesia/Blood Transfusion Reactions: No Reported Reaction Past Psychological History: Depression Smoking Status: Current every day smoker Past Alcohol Use History: None Reported Past Drug Use History: None Reported - Past Family History Mother Family Medical History: Asthma Father History Unknown: Yes Medications and Allergies Home Medications Medication Instructions Recorded Confirmed Type DULoxetine HCL [Cymbalta] 60 mg PO DAILY 05/23/16 06/07/19 History Atenolol [Tenormin] 25 mg PO BID 10/22/16 06/07/19 History Butalb/Acetaminophen/Caffeine 1 tab PO Q6HR PRN 10/22/16 06/07/19 History [Fioricet 50-325-40] HYDROcodone/APAP 10-325MG [[place] 1 tab PO QID PRN 10/22/16 06/07/19 History 10-325] Levothyroxine Sodium [Synthroid] 50 mcg PO DAILY 10/22/16 06/07/19 History Losartan Potassium 100 mg PO DAILY 10/22/16 06/07/19 History Warfarin Sodium 10 mg PO DIRECTED 10/22/16 06/07/19 History Albuterol Inhaler [Ventolin Hfa 1 - 2 puff INHALATION RT-Q6H PRN 06/07/19 06/07/19 History Inhaler] Atorvastatin [Lipitor] 10 mg PO DAILY 06/07/19 06/07/19 History DULoxetine HCL [Cymbalta] 30 mg PO DAILY 06/07/19 06/07/19 History Dicyclomine [Bentyl] 20 mg PO TID 06/07/19 06/07/19 History buPROPion HCL [Wellbutrin XL] 300 mg PO DAILY 06/07/19 06/07/19 History busPIRone HCL 15 mg PO BID 06/07/19 06/07/19 History cloNIDine HCL [Catapres] 0.1 mg PO BID 06/07/19 06/07/19 History Allergies Allergy/AdvReac Type Severity Reaction Status Date / Time No Known Allergies Allergy Verified 06/07/19 12:26 Physical Exam Vitals: Vital Signs Temp Pulse Resp BP Pulse Ox 06/07/19 15:53 98.7 F 83 18 119/79 97 06/07/19 15:00 82 18 125/88 91 L 06/07/19 14:00 83 18 89 L 06/07/19 13:00 81 18 94 L 06/07/19 12:43 80 18 94 L 06/07/19 12:28 112 H 20 130/92 97 06/07/19 12:24 98.1 F Intake and Output 06/07/19 06/07/19 06/07/19 06:59 14:59 22:59 Other: Weight 104.326 kg Constitutional: No acute distress, conversant, pleasant Eyes: Anicteric sclerae, moist conjunctiva, no lid-lag, PERRLA ENMT: NC/AT,Oropharynx clear, no erythema, exudates Neck:Supple, FROM, no masses, or JVD, No carotid bruits; No thyromegaly Lungs: Clear to auscultation, Clear to percussion, Normal respiratory effort, no accessory muscle use Cardiovascular: Heart regular in rate and rhythm, No murmurs, gallops, or rubs no peripheral edema Abdominal: Soft tender to palpation on the left lower quadrant, non distended, mild guarding, no rebound or rigidity, hypoactive bowel sounds Skin: Normal temperature, tone, texture, turgor, No induration No subcutaneous nodules, No rash, lesions, No ulcers Extremities:No digital cyanosis No clubbing, Pedal pulses intact and symmetrical Radial pulses intact and symmetrical Normal gait and station, No calf tenderness Psychiatric: Alert and oriented to person, place and time, Appropriate affect Intact judgement Neuro: Muscles Strength 5/5 in all 4 extremities, Sensation to light touch grossly present throughout, Cranial nerves II-XII grossly intact. No focal sensory deficits Results CBC & Chem 7: 06/07/19 12:02 06/07/19 12:02 Labs: Abnormal Lab Results - Last 24 Hours (Table) 06/07/19 06/07/19 06/07/19 Range/Units 12: 12:02 14:08 WBC 21.4 H (3.8-10.6) k/uL Neutrophils # 18.5 H (1.3-7.7) k/uL Sodium 135 L (137-145) mmol/L Carbon Dioxide 20 L (22-30) mmol/L Glucose 134 H (74-99) mg/dL AST 46 H (14-36) U/L Alkaline Phosphatase 146 H (38-126) U/L Stool Occult Blood Positive H (Negative) Assessment and Plan Assessment: Sepsis Sigmoid colitis Positive Hemoccult Possible GI bleed Abdominal pain Essential hypertension Hyperlipidemia History of venous thromboembolism Plan: The patient is admitted anticipated greater than 2 midnight stay with sepsis due to likely sigmoidal colitis after presenting with pronounced leukocytosis abdominal pain and rectal bleeding. The patient started on empiric IV antibiotics with IV Zosyn, with plans for supportive management with antiemetics, IV analgesics and maintenance fluids. There is also concern for GI bleed given her positive Hemoccult, GI will be consulted to evaluate for possible endoscopy in the outpatient setting as her sigmoidall: Is likely to friable at this point for any inpatient colonoscopy. She is placed on a clear liquid diet,blood and urine cultures will be ordered chest x-ray will also be taken To rule out other infectious etiologies. We'll continue to patient's cli nical course. Prophylaxis: SCDs and PPI therapy Anticipated discharge place home Discussed plan of care with: Patient in ER physician CODE STATUS: Full code Greater than 60 minutes was spent in the evaluation of this medically complex patient
[2019-06-07] MEDS: MORPHINE SULFATE 4 MG/ML SYRINGE IV PRN ×2 (17:13→21:05)
--- NOTE | 2019-06-07 17:21 | XR ---
EXAMINATION TYPE: XR chest 2V DATE OF EXAM: 06/07/2019 COMPARISON: 10/22/2016 TECHNIQUE: PA and lateral views submitted. HISTORY: Cough FINDINGS: The lungs are clear and there is no pneumothorax, pleural effusion, or focal pneumonia. Degenerativ e change of the spine. IMPRESSION: 1. No acute process.
[2019-06-07 17:53] LABS: Appearance,Urine Cloudy (Clear); Bacteria,Urine Moderate /hpf; Bilirubin,Urine Negative (Negative); Blood,Urine Trace (Negative); Color,Urine Yellow; Glucose,Urine (UA) Negative (Negative); Ketones,Urine 2+ (Negative); Leukocyte Esterase,Urine Negative (Negative); Mucus,Urine Moderate /hpf; Nitrite,Urine Negative (Negative); Protein,Urine 1+ (Negative); RBC,Urine 3 /hpf (0-5); Specific Gravity,Urine 1.025 (1.001-1.035); Squamous Epithelial Cell,Urine 5 /hpf (0-4); Urobilinogen,Urine <2.0 mg/dL (<2.0); WBC,Urine 1 /hpf (0-5)
[2019-06-07] MEDS: DICYCLOMINE 20 MG TAB PO SCH (21:03)
[2019-06-07] MEDS: ATENOLOL 25 MG TAB PO SCH (21:03)
[2019-06-07] MEDS: cloNIDine HCL 0.1 MG TAB PO SCH (21:03)
[2019-06-07] MEDS: busPIRone HCl 5 MG TAB PO SCH (21:03)
[2019-06-07] MEDS: KETOROLAC 30 MG/ML 1 ML VIAL IVP PRN (23:37)
[2019-06-07] MEDS: PIPERACILLIN-TAZOBACTAM 3.375 GM in SODIUM CHLORIDE 0.9% 100 ML IVPB SCH (23:38)
[2019-06-08] MEDS: SODIUM CHLORIDE 0.9% 1,000 ML IV SCH ×2 (02:19→20:19)
[2019-06-08] MEDS: HYDROmorphone 0.5 MG/0.5 ML SYRINGE IVP PRN ×2 (05:16→09:23)
[2019-06-08] MEDS: LEVOTHYROXINE 50 MCG TAB PO SCH (05:23)
[2019-06-08 07:37] LABS: Basophils % (A) 0 %; Eosinophils # (A) 0.1 k/uL (0-0.7); Eosinophils % (A) 0 %; HCT 39.1 % (34.0-46.0); HGB 12.5 gm/dL (11.4-16.0); Lymphocytes # (A) 1.1 k/uL (1.0-4.8); Lymphocytes % (A) 7 %; MCH 30.5 pg (25.0-35.0); MCV 95.4 fL (80.0-100.0); Mean Platelet Volume 7.4; Monocytes # (A) 0.7 k/uL (0-1.0); Monocytes % (A) 5 %; Neutrophils # (A) 13.1 k/uL (1.3-7.7); Neutrophils % (A) 86 %; Platelet Count 219 k/uL (150-450); RDW 12.9 % (11.5-15.5); WBC 15.2 k/uL (3.8-10.6)
[2019-06-08 07:48] LABS: ALT 18 U/L (4-34); AST 29 U/L (14-36); African American GFR (CKD) >90 (>60 ml/min/1.73 sqM); Albumin 2.8 g/dL (3.5-5.0); Alkaline Phosphatase 96 U/L (38-126); Anion Gap 3 mmol/L; Blood Urea Nitrogen 13 mg/dL (7-17); Calcium 8.3 mg/dL (8.4-10.2); Carbon Dioxide 25 mmol/L (22-30); Chloride 111 mmol/L (98-107); Glucose 133 mg/dL (74-99); Non-African American GFR(CKD) >90 (>60 ml/min/1.73 sqM); Potassium 3.6 mmol/L (3.5-5.1); Sodium 139 mmol/L (137-145); Total Bilirubin 0.7 mg/dL (0.2-1.3); Total Protein 5.2 g/dL (6.3-8.2)
[2019-06-08] MEDS: PIPERACILLIN-TAZOBACTAM 3.375 GM in SODIUM CHLORIDE 0.9% 100 ML IVPB SCH ×3 (08:27→23:39)
[2019-06-08] MEDS: busPIRone HCl 5 MG TAB PO SCH ×2 (08:28→20:16)
[2019-06-08] MEDS: ATORVASTATIN 10 MG TAB PO SCH (08:28)
[2019-06-08] MEDS: DICYCLOMINE 20 MG TAB PO SCH ×3 (08:28→20:18)
[2019-06-08] MEDS: PANTOPRAZOLE 40 MG/10 ML VIAL IV SCH (08:32)
[2019-06-08] MEDS: LOSARTAN 50 MG TAB PO SCH (08:32)
[2019-06-08] MEDS: DULoxetine HCL 30 MG CAPSULE.DR PO SCH (08:33)
[2019-06-08] MEDS: ATENOLOL 25 MG TAB PO SCH ×2 (08:34→20:16)
[2019-06-08] MEDS: cloNIDine HCL 0.1 MG TAB PO SCH ×2 (08:34→20:16)
[2019-06-08] MEDS: buPROPion XL 300 MG TAB.ER.24H PO SCH (08:34)
[2019-06-08] MEDS ORDERED: DULoxetine HCL 60 MG CAPSULE.DR PO SCH (09:00)
[2019-06-08] MEDS: KETOROLAC 30 MG/ML 1 ML VIAL IVP PRN (09:28)
[2019-06-08] MEDS: HYDROmorphone 1 MG/ML 1 ML SYRINGE IVP PRN ×4 (13:40→23:38)
--- NOTE | 2019-06-08 14:11 | P.PN ---
Subjective Progress Note Date: 06/08/19 Principal diagnosis: Colitis Patient was seen and examined. No acute events overnight. Patient reports 9 out of 10 abdominal pain which had a bowel movement this morning. Patient states blood was mixed in with stool. Pain is left lower quadrant. She reports nausea with the pain. Tolerating clear liquid diet well otherwise. She denies any chest pain, shortness of breath or palpitations. Objective - Vital Signs Vital signs: Vital Signs Temp 98.1 F 06/08/19 12:15 Pulse 73 06/08/19 12:15 Resp 18 06/08/19 12:15 BP 109/72 06/08/19 12:15 Pulse Ox 94 L 06/08/19 12:15 Intake & Output 06/07/19 06/08/19 06/08/19 18:59 06:59 18:59 Intake Total 240 Output Total 850 Balance -850 240 Weight 90.9 kg Intake: Oral 240 Output: Urine 850 Other: # Voids 2 # Bowel Movements 1 - Exam General: [non toxic], [no distress], [appears at stated age] Derm: [warm], [dry] Head: [atraumatic], [normocephalic], [symmetric] Eyes: [EOMI], [no lid lag], [anicteric sclera] Mouth: [no lip lesion], [mucus membranes moist] Cardiovascular: [S1S2 reg], [no murmur], [positive DP pulse bilateral], Lungs: [CTA bilateral], [no rhonchi, no rales] , [no accessory muscle use] Abdominal: [soft], [tenderness of the left lower quadrant without rebound], [no guarding], [no appreciable organomegaly], [positive bowel sounds] Ext: [no gross muscle atrophy], [no edema], [no contractures] Neuro: [no focal neuro deficits] Psych: [Alert], [oriented], [appropriate affect] - Labs CBC & Chem 7: 06/08/19 07:04 06/08/19 07:04 Labs: Abnormal Lab Results - Last 24 Hours (Table) 06/07/19 06/07/19 06/07/19 Range/Units 12:02 12:02 12:52 WBC 21.4 H (3.8-10.6) k/uL Neutrophils # 18.5 H (1.3-7.7) k/uL Sodium 135 L (137-145) mmol/L Chloride (98-107) mmol/L Carbon Dioxide 20 L (22-30) mmol/L Glucose 134 H (74-99) mg/dL Calcium (8.4-10.2) mg/dL AST 46 H (14-36) U/L Alkaline Phosphatase 146 H (38-126) U/L Total Protein (6.3-8.2) g/dL Albumin (3.5-5.0) g/dL Urine Appearance Cloudy H (Clear) Urine Protein 1+ H (Negative) Urine Ketones 2+ H (Negative) Urine Blood Trace H (Negative) Ur Squamous Epith Cells 5 H (0-4) /hpf Urine Bacteria Moderate H (None) /hpf Urine Mucus Moderate H (None) /hpf Stool Occult Blood (Negative) 06/07/19 06/08/19 06/08/19 Range/Units 14:08 07:04 07:04 WBC 15.2 H (3.8-10.6) k/uL Neutrophils # 13.1 H (1.3-7.7) k/uL Sodium (137-145) mmol/L Chloride 111 H (98-107) mmol/L Carbon Dioxide (22-30) mmol/L Glucose 133 H (74-99) mg/dL Calcium 8.3 L (8.4-10.2) mg/dL AST (14-36) U/L Alkaline Phosphatase (38-126) U/L Total Protein 5.2 L (6.3-8.2) g/dL Albumin 2.8 L (3.5-5.0) g/dL Urine Appearance (Clear) Urine Protein (Negative) Urine Ketones (Negative) Urine Blood (Negative) Ur Squamous Epith Cells (0-4) /hpf Urine Bacteria (None) /hpf Urine Mucus (None) /hpf Stool Occult Blood Positive H (Negative) Assessment and Plan Assessment: Sepsis related to sigmoid colitis Possible GI bleed Hypertension Dyslipidemia History Crohn's disease Hypothyroidism Patient initially met sepsis criteria with tachycardia, leukocytosis and positive source of infection. CT confirmed colitis. Leukocytosis improving. Plans: Continue Zosyn. Follow blood culture. Continue normal saline at 100 mL per hour. Zofran as needed for nausea or vomiting. Pain control with Dilaudid as needed. Will likely need colonoscopy but not at this time given friable state of the colon. Follow GI consultation. Stool for occult blood positive. Hemoglobin maintaining. Plans: Repeat CBC tomorrow morning. BP 109/72. Plans: Continue atenolol. Continue clonidine. Monitor vitals, ad just medications as necessary. Plans: Follow GI consultation. Plans: Continue Synthroid. [Patient admitted for sepsis related to sigmoid colitis. She is on IV antibiotics. GI consultation pending. Patient is pending clinical improvement. Likely DC in 2-3 days.]
--- NOTE | 2019-06-08 23:07 | CONS ---
CONSULTATION DATE OF SERVICE: June 08, 2019. REQUESTING PHYSICIAN: . REASON FOR CONSULTATION: Abdominal pain, bloody diarrhea. HISTORY OF PRESENT ILLNESS: The patient is a 53 -year-old pleasant white male who was admitted to the hospital with acute onset of lower abdominal pain followed by rectal bleeding that started on night. She had at least 7 or 8 of these episodes in to Saturday and Saturday and symptoms got progressively worse with lower abdominal pain and hence came to the emergency room and subsequently admitted to the hospital for further evaluation. She did have a CT done that showed thickening of the colon involving the left colon from sigmoid to the splenic flexure consistent with acute colitis. She was started on broad- spectrum antibiotics this morning. She was feeling better, but she had a bowel movement earlier around 10 o'clock and after that she had severe left lower quadrant abdominal pain. She still had small streaks of blood in the stool. She never had these symptoms in the past. The last colonoscopy was done at [facility] about two years and according to the patient it was within normal limits. She denies any recent travel history. No recent antibiotic use. Never had these symptoms in the past. PAST MEDICAL HISTORY: Significant for history of DVT for which she was on Coumadin which was discontinued about 3 weeks ago, history of hypertension, hyperlipidemia. PAST SURGICAL HISTORY: Right inguinal hernia, left knee surgery, cholecystectomy, tubal ligation, uterine ablation. SOCIAL HISTORY: Chronic smoker. No alcohol use. FAMILY HISTORY: Mother had asthma. Father unremarkable. MEDICATIONS: At home include: Cymbalta, Tenormin, [place], Losartan, Synthroid, Lipitor, Bentyl, Wellbutrin, BuSpar, Catapres. ALLERGIES: None. SOCIAL HISTORY: As mentioned above. REVIEW OF SYSTEMS: CARDIOPULMONARY: No chest pain, shortness of breath. GENITOURINARY: No dysuria or hematuria. MUSCULOSKELETAL: Unremarkable. SKIN unremarkable. ENDOCRINE unremarkable. PSYCHIATRIC unremarkable. NEUROLOGY unremarkable. ENT/vision unremarkable. CONSTITUTIONAL: No recent weight loss. No fever, no chills and no night sweats. PHYSICAL EXAMINATION: GENERAL: The patient appears comfortable, no apparent distress. VITAL SIGNS: Stable. Blood pressure 110/71. Pulse 84. Temperature 98.4. HEENT: Unremarkable. Conjunctivae pink. Sclerae anicteric. Oral cavity no lesions. NECK: No JVD or lymph node enlargement. CHEST: Clear to auscultation. HEART: Regular rate and rhythm. ABDOMEN: Soft. There is mild diffuse tenderness noted throughout the abdomen, with more tenderness in the suprapubic and left lower quadrant area. No rebound or rigidity. EXTREMITIES: No pedal edema. SKIN no rashes. NEUROLOGIC: Alert and oriented x3. No focal deficits. LABS: WBC 21.4, hemoglobin 15.4, platelets normal. Basic metabolic panel was within normal limits. Today, WBC was 15.2, hemoglobin 12.5. CT of the abdomen showed thickening of the left colon from the sigmoid colon to the splenic flexure consistent with acute colitis. IMPRESSION: 1. This is a patient who presents to the hospital with severe lower abdominal pain followed by bloody diarrhea of 2 days duration. She had multiple episodes of bright red blood per rectum followed by a small amount of mucous and blood in the stool, continues to have lower abdominal pain. CT of the abdomen showed thickening of the left colon consistent with acute colitis. Her clinical picture is very consistent with acute ischemic colitis, but possibility of infectious etiology cannot be excluded. She is on Empiric Zosyn that was started 2 days ago and given some pain medications. 2. History of deep vein thrombosis and pulmonary embolism in the past, was on Coumadin for 6 months, which was discontinued 3 weeks ago. 3. History of hypertension. 4. History of irritable bowel syndrome. 5. History of hypothyroidism. RECOMMENDATIONS: 1. Continue with broad-spectrum antibiotics. 2. Continue with a clear liquid diet. 3. Pain medications as needed. 4. I had a lengthy discussion with the patient regarding management of acute colitis, which will be symptomatic and supportive care. 5. No plans on any endoscopy intervention at the present time. 6. We will follow you closely.. Thank you for this consultation. MMODL / IJN: [id number] /
[2019-06-09] MEDS: HYDROmorphone 1 MG/ML 1 ML SYRINGE IVP PRN ×7 (03:18→23:10)
[2019-06-09] MEDS: SODIUM CHLORIDE 0.9% 1,000 ML IV SCH (05:58)
[2019-06-09] MEDS: LEVOTHYROXINE 50 MCG TAB PO SCH (05:59)
[2019-06-09] MEDS: PIPERACILLIN-TAZOBACTAM 3.375 GM in SODIUM CHLORIDE 0.9% 100 ML IVPB SCH ×2 (07:18→15:45)
[2019-06-09 08:21] LABS: Basophils % (A) 0 %; Eosinophils # (A) 0.2 k/uL (0-0.7); Eosinophils % (A) 2 %; HGB 11.6 gm/dL (11.4-16.0); Lymphocytes # (A) 1.5 k/uL (1.0-4.8); Lymphocytes % (A) 16 %; MCH 29.7 pg (25.0-35.0); MCHC 31.5 g/dL (31.0-37.0); MCV 94.3 fL (80.0-100.0); Mean Platelet Volume 7.2; Monocytes # (A) 0.4 k/uL (0-1.0); Monocytes % (A) 4 %; Neutrophils # (A) 7.3 k/uL (1.3-7.7); Neutrophils % (A) 76 %; Platelet Count 219 k/uL (150-450); RBC 3.92 m/uL (3.80-5.40); RDW 12.9 % (11.5-15.5); WBC 9.6 k/uL (3.8-10.6)
[2019-06-09 08:47] LABS: African American GFR (CKD) >90 (>60 ml/min/1.73 sqM); Anion Gap 6 mmol/L; Blood Urea Nitrogen 9 mg/dL (7-17); Carbon Dioxide 22 mmol/L (22-30); Chloride 110 mmol/L (98-107); Glucose 93 mg/dL (74-99); Non-African American GFR(CKD) >90 (>60 ml/min/1.73 sqM); Potassium 3.2 mmol/L (3.5-5.1); Sodium 138 mmol/L (137-145)
[2019-06-09] MEDS: ATENOLOL 25 MG TAB PO SCH ×2 (09:47→20:13)
[2019-06-09] MEDS: PANTOPRAZOLE 40 MG/10 ML VIAL IV SCH (09:47)
[2019-06-09] MEDS: ATORVASTATIN 10 MG TAB PO SCH (09:47)
[2019-06-09] MEDS: cloNIDine HCL 0.1 MG TAB PO SCH ×2 (09:48→20:13)
[2019-06-09] MEDS: busPIRone HCl 5 MG TAB PO SCH ×2 (09:48→20:15)
[2019-06-09] MEDS: DICYCLOMINE 20 MG TAB PO SCH ×3 (09:48→22:13)
[2019-06-09] MEDS: LOSARTAN 50 MG TAB PO SCH (09:49)
[2019-06-09] MEDS: DULoxetine HCL 30 MG CAPSULE.DR PO SCH (09:49)
[2019-06-09] MEDS: buPROPion XL 300 MG TAB.ER.24H PO SCH (11:09)
--- NOTE | 2019-06-09 13:18 | PN ---
PROGRESS NOTE DATE OF DICTATION: 06/09/2019 The patient is a 53-year-old pleasant white female admitted to the hospital with acute onset of lower abdominal pain followed by bloody diarrhea of one day duration. For the last 2 days, she has been having persistent lower abdominal pain and loose bowel movements. She had about 3 episodes today. No further episodes of bleeding. She denies any nausea or vomiting. Requiring pain medications every 3 to 4 hours. PHYSICAL EXAMINATION: On physical examination, appears comfortable, no apparent distress. Vital signs are stable. Blood pressure 124/73, pulse is 64, temperature 98.5. HEENT examination unremarkable. Conjunctivae pink. Sclerae anicteric. Oral cavity, no lesions. NECK: No JVD or lymph node enlargement. CHEST: Clear to auscultation. HEART: Regular rate and rhythm. ABDOMEN: Soft. There was tenderness in the suprapubic area, left lower quadrant area, left upper quadrant area. EXTREMITIES: No pedal edema. SKIN: No rashes. NEURO: Alert and oriented x3. No focal deficits. LABS: WBC 9.6, hemoglobin 11.6, platelet 219. Rest of the basic metabolic panel is within normal limits. Stool C difficile was negative. Occult blood was positive. IMPRESSION: Acute onset of lower abdominal pain followed by rectal bleeding of one day duration, now continues to have persistent pain and some diarrhea. A CT scan showed thickening of the left colon consistent with acute ischemic colitis versus infectious etiology. On broad-spectrum antibiotics, the symptoms are gradually improving. RECOMMENDATION: 1. Continue with antibiotics. 2. Advance to full liquid diet. 3. Repeat labs in the morning. 4. We will follow with you. 5. No plans for any endoscopic intervention. Thank you for this consultation. MMODL / IJN: [id number] /
[2019-06-09] MEDS ORDERED: Potassium Replacement Protocol 1 EACH MISC MISCELLANE PRN ×2 (13:27→14:51)
[2019-06-09] MEDS ORDERED: SODIUM CHLORIDE 0.9% 1,000 ML IV SCH (14:15)
--- NOTE | 2019-06-09 14:42 | P.PN ---
Subjective Progress Note Date: 06/09/19 Principal diagnosis: Colitis Patient was seen and examined. No acute events overnight. Patient reports 9 out of 10 abdominal pain especially with movement and deep inspiration. Patient states blood was mixed in with stool, loose. Tolerating clear liquid diet well otherwise. She denies any chest pain, shortness of breath or palpitations. Objective - Vital Signs Vital signs: Vital Signs Temp 98.5 F 06/09/19 12:00 Pulse 64 06/09/19 12:00 Resp 18 06/09/19 12:00 BP 124/73 06/09/19 12:00 Pulse Ox 99 06/09/19 12:00 Intake & Output 06/08/19 06/09/19 06/09/19 18:59 06:59 18:59 Intake Total 240 Balance 240 Intake: Oral 240 Other: # Voids 1 1 1 # Bowel Movements 1 1 1 - Exam General: [non toxic], [no distress], [appears at stated age] Derm: [warm], [dry] Head: [atraumatic], [normocephalic], [symmetric] Eyes: [EOMI], [no lid lag], [anicteric sclera] Mouth: [no lip lesion], [mucus membranes moist] Cardiovascular: [S1S2 reg], [no murmur], [positive DP pulse bilateral], Lungs: [CTA bilateral], [no rhonchi, no rales] , [no accessory muscle use] Abdominal: [soft], [tenderness of the left lower quadrant without rebound], [no guarding], [no appreciable organomegaly], [positive bowel sounds] Ext: [no gross muscle atrophy], [no edema], [no contractures] Neuro: [no focal neuro deficits] Psych: [Alert], [oriented], [appropriate affect] - Labs CBC & Chem 7: 06/09/19 07:35 06/09/19 07:35 Labs: Abnormal Lab Results - Last 24 Hours (Table) 06/09/19 Range/Units 07:35 Potassium 3.2 L (3.5-5.1) mmol/L Chloride 110 H (98-107) mmol/L Calcium 8.0 L (8.4-10.2) mg/dL Microbiology - Last 24 Hours (Table) 06/07/19 15:37 Blood Culture - Preliminary Blood No Growth after 24 hours Assessment and Plan Assessment: Sepsis related to sigmoid colitis Hypokalemia Possible GI bleed Hypertension Dyslipidemia History Crohn's disease Hypothyroidism Patient initially met sepsis criteria with tachycardia, leukocytosis and positive source of infection. CT confirmed colitis. Leukocytosis resolved. Blood culture negative at 24 hours. Plans: Continue Zosyn. Follow blood culture. DC IVF. Zofran as needed for nausea or vomiting. Pain control with Dilaudid as needed. Will likely need colonoscopy but not at this time given friable state of the colon. Follow GI consultation. Transition to full liquid diet. Pain control with Dilaudid 1 mg IV every 3 hours as needed. Potassium 3.2. Likely from diarrhea. Plans: Replace via protocol. Stool for occult blood positive. Hemoglobin maintaining. Plans: Repeat CBC tomorrow morning. BP 124/73. Plans: Continue atenolol. Continue clonidine. Monitor vitals, adjust medications as necessary. Plans: Follow GI consultation. Plans: Continue Synthroid. [Patient admitted for sepsis related to sigmoid colitis. She is on IV antibiotics. Patient is pending clinical improvement. Likely DC in 2-3 days.]
[2019-06-09] MEDS: POTASSIUM CHLORIDE 10 MEQ in WATER FOR INJECTION 1 100ML.BAG IVPB SCH ×4 (15:07→18:39)
[2019-06-09 23:24] LABS: African American GFR (CKD) >90 (>60 ml/min/1.73 sqM); Anion Gap 3 mmol/L; Blood Urea Nitrogen 5 mg/dL (7-17); Calcium 7.9 mg/dL (8.4-10.2); Carbon Dioxide 25 mmol/L (22-30); Chloride 110 mmol/L (98-107); Glucose 108 mg/dL (74-99); Non-African American GFR(CKD) >90 (>60 ml/min/1.73 sqM); Potassium 3.5 mmol/L (3.5-5.1); Sodium 138 mmol/L (137-145)
[2019-06-10] MEDS: PIPERACILLIN-TAZOBACTAM 3.375 GM in SODIUM CHLORIDE 0.9% 100 ML IVPB SCH ×2 (00:02→08:06)
[2019-06-10] MEDS: HYDROmorphone 1 MG/ML 1 ML SYRINGE IVP PRN ×2 (03:54→08:03)
[2019-06-10] MEDS: LEVOTHYROXINE 50 MCG TAB PO SCH (06:40)
[2019-06-10 08:02] VITALS: BP 143/94; PULSE 72; RESP 16; TEMP 98.1
[2019-06-10] MEDS: PANTOPRAZOLE 40 MG/10 ML VIAL IV SCH (08:10)
[2019-06-10] MEDS: buPROPion XL 300 MG TAB.ER.24H PO SCH (08:14)
[2019-06-10] MEDS: DICYCLOMINE 20 MG TAB PO SCH (08:14)
[2019-06-10] MEDS: ATORVASTATIN 10 MG TAB PO SCH (08:14)
[2019-06-10] MEDS: busPIRone HCl 5 MG TAB PO SCH (08:14)
[2019-06-10] MEDS: cloNIDine HCL 0.1 MG TAB PO SCH (08:14)
[2019-06-10] MEDS: ATENOLOL 25 MG TAB PO SCH (08:14)
[2019-06-10] MEDS: DULoxetine HCL 30 MG CAPSULE.DR PO SCH (08:15)
[2019-06-10] MEDS: LOSARTAN 50 MG TAB PO SCH (08:15)
[2019-06-10] MEDS ORDERED: PSYLLIUM HUSK 100% 6 GM PACKET PO SCH (11:00)
[2019-06-10] MEDS ORDERED: metroNIDAZOLE 500 MG TAB PO STA (11:06)
[2019-06-10] MEDS ORDERED: DICYCLOMINE 20 MG TAB PO PRN (11:12)
--- NOTE | 2019-06-10 13:44 | PN ---
PROGRESS NOTE DATE OF DICTATION: 06/10/2019 Patient is a 53-year-old pleasant white female admitted to hospital with acute onset of lower abdominal pain and bloody diarrhea of 2 days duration. She is doing better. Still has some lower abdominal discomfort. Her bleeding has completely stopped. Had one bowel movement today. She is on a full liquid diet, tolerating well, requiring pain medications every 4 hours. PHYSICAL EXAMINATION: On physical examination, appears comfortable, no apparent distress. Blood pressure 143/94, pulse rate 72, temperature 98.1. HEENT: Examination unremarkable. Conjunctivae pink. Sclerae anicteric. Oral cavity, no lesions. NECK: No JVD or lymph node enlargement. CHEST: Clear to auscultation. HEART: Regular rate and rhythm. ABDOMEN: Soft. Bowel sounds are positive. No organomegaly. EXTREMITIES: No pedal edema. SKIN: No rashes. NEUROLOGIC: Alert and oriented x3. No focal deficits. LABS: Labs from today: WBC 9.6, hemoglobin 11.6, platelets normal. Basic metabolic panel is within normal limits. IMPRESSION: Acute colitis, possibly ischemic colitis versus infectious colitis on broad-spectrum antibiotics for 3 to 4 days, doing better, symptoms are resolved. Bleeding has completely subsided. Last colonoscopy a year and a half ago according to the patient was within normal limits. RECOMMENDATIONS: 1. Continue antibiotics for 4 more days. 2. Bentyl as needed. 3. Advance to a low-fiber diet. 4. She can follow up in office in 3 to 4 weeks following discharge from the hospital. Thank you for this consultation. MMODL / IJN: [id number] /
--- NOTE | 2019-06-13 21:32 | DS ---
DISCHARGE SUMMARY DATE OF ADMISSION: June 07, 2019. DATE OF DISCHARGE: June 10, 2019. FINAL DIAGNOSES: 1. Acute left colon ischemic colitis. 2. Sepsis from above. 3. MTHFR gene clotting disorder. 4. Essential hypertension. 5. Hyperlipidemia. 6. Hypothyroid. 7. Essential hypertension. 8. Depression not otherwise specified. HOSPITAL COURSE: This patient presented with abdominal pain, bloody stools. Did have a CT scan. Clinical picture is compatible with ischemic colitis. Treated with IV Zosyn. At the time of discharge doing much better. Diet was advanced. Seen by Gastroenterology. Cleared for discharge. Discussion and discharge planning more than 35 minutes. PHYSICAL EXAMINATION: Temperature 98.1, pulse 82, respirations 16, blood pressure 143/94, pulse ox 95% on room air. LUNGS: Clear. CARDIOVASCULAR: 1st and 2nd sounds normal. ABDOMEN: Soft, nontender. INVESTIGATIONS: White count 9.6, hemoglobin 11.6, potassium 3.5, creatinine 0.71. CONSULTATION: Dr. Bhakti Peter from Gastroenterology. DISCHARGE MEDICATIONS: 1. Cymbalta 60 mg p.o. daily. 2. Tenormin 25 mg b.i.d. 3. Fioricet 1 tablet q.6 p.r.n. 4. [place] 10 1 tablet q.i.d. p.r.n. 5. Synthroid 50 mcg p.o. daily. 6. Losartan 100 mg p.o. daily. 7. Coumadin as before. 8. Aspirin 81 mg daily. 9. Lipitor 10 mg p.o. daily. 10.Wellbutrin XL 300 mg p.o. daily. 11.Buspirone 50 mg b.i.d. 12.Catapres 0.1 mg b.i.d. 13.Ventolin HFA 2 puffs q.4 p.r.n. 14.Augmentin 875 one tablet b.i.d. for 7 days. 15.Bentyl 20 mg p.o. t.i.d. p.r.n. 16.Metamucil 6 grams p.o. daily. 17.Flagyl 500 mg t.i.d. for 7 days. FOLLOWUP: Follow up with Dr. Eusebio Martin on 06/12/2019, follow up with Dr. Bhakti Peter on 06/25/2019. Copy to Dr. Eusebio Martin. MMODL / IJN: [id number] /
== END 2019-06-10 12:50 | disposition home or self-care (01) | DRG 871 ==
LOC: EC 12:22 → 6PED 15:05
PROVIDERS: ADMIT Hospitalist; ATTEND Hospitalist
DX: A41.9 Sepsis, unspecified organism (principal); K55.039 Acute (reversible) ischemia of large intestine, extent unspecified; E72.12 Methylenetetrahydrofolate reductase deficiency; K50.90 Crohn's disease, unspecified, without complications; E03.9 Hypothyroidism, unspecified; E78.5 Hyperlipidemia, unspecified; E87.6 Hypokalemia; F17.200 Nicotine dependence, unspecified, uncomplicated; F32.9 Major depressive disorder, single episode, unspecified; I10 Essential (primary) hypertension; Z86.711 Personal history of pulmonary embolism; Z82.5 Family history of asthma and other chronic lower respiratory diseases; Z79.899 Other long term (current) drug therapy; Z79.890 Hormone replacement therapy; Z79.01 Long term (current) use of anticoagulants; Z86.718 Personal history of other venous thrombosis and embolism; Z90.49 Acquired absence of other specified parts of digestive tract; Z98.890 Other specified postprocedural states; Z98.51 Tubal ligation status
CPT/HCPCS: 36415; 71046; 74177; 80048; 80053; 81001; 82272; 83605; 83735; 84484; 85025; 85610; 85730; 86850; 86900; 86901; 87040; 87324; 96361; 96365; 96375; 99285

== ENCOUNTER 2019-07-27 08:34 | Emergency (ER) | payer MEDICARE, OTHER ==
[2019-07-27 08:42] VITALS: RESP 18
[2019-07-27] MEDS ORDERED: SODIUM CHLORIDE 0.9% 1,000 ML IV STA (08:51)
[2019-07-27] MEDS ORDERED: ONDANSETRON 4 MG/2 ML VIAL IVP STA (08:51)
[2019-07-27] MEDS ORDERED: FAMOTIDINE 20 MG/2 ML VIAL IV STA (08:51)
[2019-07-27] MEDS ORDERED: MORPHINE SULFATE 4 MG/ML SYRINGE IVP STA (08:51)
--- NOTE | 2019-07-27 08:55 | ED ---
General Adult HPI - General Chief complaint: Abdominal Pain Stated complaint: Stomach pain Time Seen by Provider: 07/27/19 08:42 Source: patient, RN notes reviewed Mode of arrival: ambulatory Limitations: no limitations - History of Present Illness Initial comments: 54-year-old female with a past medical history of MTHFR, hyperlipidemia, hypertension, postoperative DVT/PE, presents to the emergency department for a chief complaint of upper abdominal pain. Patient states has been ongoing since 4:00 in the morning. Patient states she has had this pain several times prior. States she gets it occasionally for the past 5 years. States this pain feels exactly the same. States she has had admission several times for this and several CAT scans. She has been scoped. She did have colitis 2 months ago but states this does not feel like colitis and feels like her previous episodes of upper abdominal pain. Patient was supposed to follow-up with GI but was not able to. Patient denies any chest pain or shortness of breath associated with this. Denies any lower abdominal pain. Patient did have her gallbladder removed. Patient no longer takes Coumadin.Patient has no other complaints at this time including shortness of breath, chest pain, nausea or vomiting, headache, or visual changes. - Related Data Home Medications Medication Instructions Recorded Confirmed DULoxetine HCL [Cymbalta] 60 mg PO BID 05/23/16 07/27/19 Atenolol [Tenormin] 25 mg PO BID 10/22/16 07/27/19 Butalb/Acetaminophen/Caffeine 1 tab PO Q3-4H PRN 10/22/16 07/27/19 [Fioricet 50-325-40] HYDROcodone/APAP 10-325MG [[place] 1 tab PO QID PRN 10/22/16 07/27/19 10-325] Levothyroxine Sodium [Synthroid] 50 mcg PO DAILY 10/22/16 07/27/19 Losartan Potassium 100 mg PO DAILY 10/22/16 07/27/19 Aspirin [Adult Low Dose Aspirin EC] 81 mg PO DAILY 06/07/19 07/27/19 Atorvastatin [Lipitor] 10 mg PO DAILY 06/07/19 07/27/19 buPROPion HCL [Wellbutrin XL] 300 mg PO DAILY 06/07/19 07/27/19 busPIRone HCL 15 mg PO BID 06/07/19 07/27/19 cloNIDine HCL [Catapres] 0.1 mg PO BID 06/07/19 07/27/19 Pregabalin [Lyrica] 75 mg PO BID 07/27/19 07/27/19 Previous Rx's Medication Instructions Recorded Dicyclomine [Bentyl] 20 mg PO TID PRN #60 tab 06/10/19 Pantoprazole Sodium [Protonix] 40 mg PO DAILY #14 tablet. 07/27/19 Allergies Allergy/AdvReac Type Severity Reaction Status Date / Time No Known Allergies Allergy Verified 07/27/19 09:57 Review of Systems ROS Statement: Those systems with pertinent positive or pertinent negative responses have been documented in the HPI. ROS Other: All systems not noted in ROS Statement are negative. 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 History of Any Multi-Drug Resistant Organisms: None Reported Past Surgical History: Cholecystectomy, Hernia Repair, Orthopedic Surgery, Tubal Ligation, Uterine Ablation Additional Past Surgical History / Comment(s): LEFT hand surg & LEFT knee surg. Past Anesthesia/Blood Transfusion Reactions: No Reported Reaction Past Psychological History: Depression Smoking Status: Former smoker Past Alcohol Use History: None Reported Past Drug Use History: None Reported - Past Family History Mother Family Medical History: Asthma Father History Unknown: Yes General Exam Limitations: no limitations General appearance: alert, in no apparent distress Head exam: Present: atraumatic, normocephalic, normal inspection Eye exam: Present: normal appearance, PERRL, EOMI. Absent: scleral icterus, conjunctival injection, periorbital swelling ENT exam: Present: normal exam, mucous membranes moist Neck exam: Present: normal inspection, full ROM. Absent: tenderness, meningismus, lymphadenopathy Respiratory exam: Present: normal lung sounds bilaterally. Absent: respiratory distress, wheezes, rales, rhonchi, stridor Cardiovascular Exam: Present: regular rate, normal rhythm, normal heart sounds. Absent: systolic murmur, diastolic murmur, rubs, gallop, clicks GI/Abdominal exam: Present: soft, tenderness (epigastric/LUQ tenderness, no lower abdominal tenderness, no RUQ tenderness), normal bowel sounds. Absent: distended, guarding, rebound, rigid Expanded GI/Abdominal exam: Absent: heel tap sign, Bonner's sign, Rovsing's sign, tenderness at McBurney's Point Course Vital Signs 07/27/19 08:40 Temperature 98.1 F Pulse Rate 97 Respiratory 18 Rate Blood Pressure 158/98 O2 Sat by Pulse 97 Oximetry EKG Findings - EKG Comments: EKG Findings:: Normal sinus rhythm, ventricular rate 84, NC interval 144, QTc 465 Medical Decision Making - Medical Decision Making HPI physical exam as documented. Physical examination revealed epigastric and left upper quadrant tenderness. History of cholecystectomy. No right upper quadrant tenderness. No lower abdominal tenderness. No fevers. Vitals are s table. CBC CMP unremarkable. CT abdomen and pelvis shows mild pericolonic fat stranding of the distal descending colon and proximal sigmoid colon. Findings are much less pronounced than on the prior exam from May. Recurrent colitis is favored alternately over diverticulitis. I discussed patient does not have any pain or tenderness in the left lower quadrant or lower abdomen. There is also possible disc herniation L4-L5. I discussed these findings with patient. I reevaluated her and she is much better. Tenderness has improved significant. I recommended she follow up with primary care and GI. Patient will also be put on Protonix given nature of epigastric pain. She will return here for any worsening symptoms. - Lab Data Result diagrams: 07/27/19 09:00 07/27/19 09:00 Lab Results 07/27/19 07/27/19 07/27/19 Range/Units 09:00 09:00 09:00 WBC 11.7 H (3.8-10.6) k/uL RBC 4.62 (3.80-5.40) m/uL Hgb 14.1 (11.4-16.0) gm/dL Hct 42.1 (34.0-46.0) % MCV 91.0 (80.0-100.0) fL MCH 30.4 (25.0-35.0) pg MCHC 33.4 (31.0-37.0) g/dL RDW 12.5 (11.5-15.5) % Plt Count 270 (150-450) k/uL Neutrophils % 86 % Lymphocytes % 8 % Monocytes % 4 % Eosinophils % 1 % Basophils % 0 % Neutrophils # 10.1 H (1.3-7.7) k/uL Lymphocytes # 1.0 (1.0-4.8) k/uL Monocytes # 0.4 (0-1.0) k/uL Eosinophils # 0.1 (0-0.7) k/uL Basophils # 0.0 (0-0.2) k/uL Sodium 137 (137-145) mmol/L Potassium 4.0 (3.5-5.1) mmol/L Chloride 106 (98-107) mmol/L Carbon Dioxide 24 (22-30) mmol/L Anion Gap 7 mmol/L BUN 12 (7-17) mg/dL Creatinine 0.65 (0.52-1.04) mg/dL Est GFR (CKD-EPI)AfAm >90 (>60 ml/min/1.73 sqM) Est GFR (CKD-EPI)NonAf >90 (>60 ml/min/1.73 sqM) Glucose 122 H (74-99) mg/dL Plasma Lactic Acid Corky 1.2 (0.7-2.0) mmol/L Calcium 9.9 (8.4-10.2) mg/dL Total Bilirubin 0.6 (0.2-1.3) mg/dL AST 25 (14-36) U/L ALT 19 (4-34) U/L Alkaline Phosphatase 98 (38-126) U/L Troponin I (0.000-0.034) ng/mL Total Protein 6.9 (6.3-8.2) g/dL Albumin 4.2 (3.5-5.0) g/dL Amylase 37 (30-110) U/L Lipase 45 (23-300) U/L 07/27/19 Range/Units 09:00 WBC (3.8-10.6) k/uL RBC (3.80-5.40) m/uL Hgb (11.4-16.0) gm/dL Hct (34.0-46.0) % MCV (80.0-100.0) fL MCH (25.0-35.0) pg MCHC (31.0-37.0) g/dL RDW (11.5-15.5) % Plt Count (150-450) k/uL Neutrophils % % Lymphocytes % % Monocytes % % Eosinophils % % Basophils % % Neutrophils # (1.3-7.7) k/uL Lymphocytes # (1.0-4.8) k/uL Monocytes # (0-1.0) k/uL Eosinophils # (0-0.7) k/uL Basophils # (0-0.2) k/uL Sodium (137-145) mmol/L Potassium (3.5-5.1) mmol/L Chloride (98-107) mmol/L Carbon Dioxide (22-30) mmol/L Anion Gap mmol/L BUN (7-17) mg/dL Creatinine (0.52-1.04) mg/dL Est GFR (CKD-EPI)AfAm (>60 ml/min/1.73 sqM) Est GFR (CKD-EPI)NonAf (>60 ml/min/1.73 sqM) Glucose (74-99) mg/dL Plasma Lactic Acid Corky (0.7-2.0) mmol/L Calcium (8.4-10.2) mg/dL Total Bilirubin (0.2-1.3) mg/dL AST (14-36) U/L ALT (4-34) U/L Alkaline Phosphatase (38-126) U/L Troponin I <0.012 (0.000-0.034) ng/mL Total Protein (6.3-8.2) g/dL Albumin (3.5-5.0) g/dL Amylase (30-110) U/L Lipase (23-300) U/L Disposition Clinical Impression: Abdominal pain Disposition: HOME SELF-CARE Condition: Good Instructions (If sedation given, give patient instructions): Abdominal Pain (ED) Additional Instructions: Please take Protonix as directed. This was prescribed to [facility] in [facility]. Please follow-up with primary care and GI by calling today or tomorrow for an appointment. If you are having worsening symptoms return immediately to the emergency department. Prescriptions: Pantoprazole Sodium [Protonix] 40 mg PO DAILY #14 tablet.dr Is patient prescribed a controlled substance at d/c from ED?: No Referrals: Eusebio Martin MD [Primary Care Provider] - 1-2 days Get Calloway MD [STAFF PHYSICIAN] - 1-2 days Time of Disposition: 11:04
--- NOTE | 2019-07-27 09:28 | XR ---
EXAMINATION TYPE: XR KUB DATE OF EXAM: 07/27/2019 9:22 AM CLINICAL HISTORY: Abdominal pain TECHNIQUE: Single upright image of the abdomen is obtained. COMPARISON: CT dated 06/07/2019. FINDINGS: Cholecystectomy clips are seen in the right upper quadrant. No pneumoperitoneum. No dilated large or small bowel. No abnormal calcification seen in the abdomen or pelvis. Lung bases are well a erated. Mild degenerative change of the lumbosacral junction. IMPRESSION: Nonobstructive bowel gas pattern.
[2019-07-27 09:39] LABS: ALT 19 U/L (4-34); AST 25 U/L (14-36); African American GFR (CKD) >90 (>60 ml/min/1.73 sqM); Albumin 4.2 g/dL (3.5-5.0); Alkaline Phosphatase 98 U/L (38-126); Amylase 37 U/L (30-110); Anion Gap 7 mmol/L; Basophils % (A) 0 %; Blood Urea Nitrogen 12 mg/dL (7-17); Calcium 9.9 mg/dL (8.4-10.2); Carbon Dioxide 24 mmol/L (22-30); Chloride 106 mmol/L (98-107); Eosinophils # (A) 0.1 k/uL (0-0.7); Eosinophils % (A) 1 %; Glucose 122 mg/dL (74-99); HCT 42.1 % (34.0-46.0); HGB 14.1 gm/dL (11.4-16.0); Lymphocytes % (A) 8 %; MCH 30.4 pg (25.0-35.0); MCHC 33.4 g/dL (31.0-37.0); Mean Platelet Volume 7.7; Monocytes # (A) 0.4 k/uL (0-1.0); Monocytes % (A) 4 %; Neutrophils # (A) 10.1 k/uL (1.3-7.7); Neutrophils % (A) 86 %; Non-African American GFR(CKD) >90 (>60 ml/min/1.73 sqM); Platelet Count 270 k/uL (150-450); RBC 4.62 m/uL (3.80-5.40); RDW 12.5 % (11.5-15.5); Sodium 137 mmol/L (137-145); Total Bilirubin 0.6 mg/dL (0.2-1.3); Total Protein 6.9 g/dL (6.3-8.2); WBC 11.7 k/uL (3.8-10.6)
[2019-07-27] MEDS ORDERED: HYDROmorphone 0.5 MG/0.5 ML SYRINGE IVP STA (09:50)
--- NOTE | 2019-07-27 10:47 | CT ---
EXAMINATION TYPE: CT abdomen pelvis w con DATE OF EXAM: 07/27/2019 HISTORY: Stomach pain, diarrhea of unknown origin CT DLP: 1493.9mGycm Automated Exposure Control for Dose Reduction was Utilized. CONTRAST: CT scan of the abdomen and pelvis is performed with IV Contrast, patient injected with 100 ml mL of I sovue 300. COMPARISON: 06/07/2019 FINDINGS: LUNG BASES: Minimal dependent bibasilar subsegmental atelectasis. LIVER/GB: Stable minimal intrahepatic biliary ductal dilatation in this patient with post cholecystec nikolay. The liver is of unremarkable enhancement. PANCREAS: No significant abnormality is seen. SPLEEN: No significant abnormality is seen. ADRENALS: No significant abnormality is seen. KIDNEYS: Kidneys enhance and excrete symmetrically without hydronephrosis. BOWEL: There is a small hiatal hernia. Descending duodenal diverticulum is seen adjacent to the pancr eatic head. There is focal mild fat stranding surrounding the descending colon distally and proximal sigmoid colon. Multiple diverticula are seen of the sigmoid colon. No dilated large or small bowel. C ecum is decompressed. Lack of oral contrast limits evaluation of the bowel. LYMPH NODES: No greater than 1cm abdominal or pelvic lymph nodes are appreciated. OSSEOUS STRUCTURES: Possible disc herniation at L4-L5. Degenerative disc disease of the visualized th oracolumbar spine is moderate. OTHER: Mild atherosclerosis of the abdominal aorta and its branches. IMPRESSION: 1. Mild pericolonic fat stranding of the distal descending colon and proximal sigmoid colon. Findings are much less pronounced than on the prior exam of 06/07/2019. Recurrent colitis is favored over alte rnatively diverticulitis. Colonoscopy recommended after resolution of symptoms. 2. Possible disc herniation at L4-L5 that would be better evaluated with MRI.
[2019-07-27 11:37] VITALS: BP 145/92; PULSE 87; TEMP 98.7
== END 2019-07-27 11:10 | disposition home or self-care (01) ==
LOC: EC 08:34
DX: R10.10 Upper abdominal pain, unspecified (principal); R10.816 Epigastric abdominal tenderness; R10.812 Left upper quadrant abdominal tenderness; E78.5 Hyperlipidemia, unspecified; I10 Essential (primary) hypertension; F32.9 Major depressive disorder, single episode, unspecified; Z79.890 Hormone replacement therapy; Z79.82 Long term (current) use of aspirin; Z79.899 Other long term (current) drug therapy; Z87.891 Personal history of nicotine dependence; Z86.718 Personal history of other venous thrombosis and embolism; Z86.711 Personal history of pulmonary embolism; Z90.49 Acquired absence of other specified parts of digestive tract
CPT/HCPCS: 36415; 93005; 80053; 82150; 83605; 83690; 84484; 85025; 74018; 74177; 99285; 96374; 96375 ×3; 96361 ×2; J2270; J2405; J1170; Q9967

== ENCOUNTER → 2019-10-07 | Outpatient (CLI) | payer MEDICARE, OTHER ==
--- NOTE | 2019-10-07 14:21 | MM ---
Reason for exam: follow-up at short interval from prior study. Last mammogram was performed 8 months ago. History: Patient is postmenopausal. Physical Findings: Nurse did not find any significant physical abnormalities on exam. MG 3D Diag Mammo W/Cad RT CC and MLO view(s) were taken of the right breast. Prior study comparison: February 06, 2019, bilateral MG 3d screening mammo w/cad. June 29, 2010, bilateral digital screening mammo w/CAD. There are scattered fibroglandular densities. Nodular density is less conspicuous. Continued follow up recommended. These results were verbally communicated with the patient and result sheet given to the patient on 10/07/19. ASSESSMENT: Probably benign, BI-RAD 3 RECOMMENDATION: Follow-up diagnostic mammogram of both breasts in 4 months. Back on schedule for January 2020.
== END | disposition home or self-care (01) ==
LOC: RADMAMWWP 13:39
PROVIDERS: ATTEND Internal Medicine
DX: R92.8 Other abnormal and inconclusive findings on diagnostic imaging of breast (principal)
CPT/HCPCS: 77065; G0279; 77061

== ENCOUNTER → 2019-11-19 | Outpatient (CLI) | payer MEDICARE, OTHER ==
--- NOTE | 2019-11-20 06:59 | US ---
EXAMINATION TYPE: US thyroid st tissue head/neck DATE OF EXAM: 11/19/2019 COMPARISON: NONE CLINICAL HISTORY: E04.1 Thyroid nodule. on meds for 6 months, assess for nodules GLAND SIZE: Right Lobe: 4.5 x 1.2 x 1.5 cm Overall Parenchyma: homogenous Left Lobe: 5.0 x 1.0 x 1.5 cm Overall Parenchyma: homogeneous Isthmus Thickness: 0.3 cm NODULES RIGHT: # of nodules measured on right: 0 LEFT: # of nodules measured on left: 2 1. 1.2 X 1.1 x 0.8 cm cystic nodule at the upper pole with well-defined margins. This nodule is wid er than tall and shows no intranodular vascularity. Prior size: no previous 2. 1.0 X 0.8 x 0.4 cm mixed nodule at the lower pole with well-defined margins. This nodule is wide r than tall and shows intranodular vascularity. Prior size: no previous ISTHMUS: # of nodules measured in the isthmus: 0 Bilateral neck scanned, no evidence of lymphadenopathy. IMPRESSION: Nonspecific thyroid nodularity. The need to biopsy should be made on a clinical basis.
== END | disposition home or self-care (01) ==
LOC: RADUSWWP 16:11
PROVIDERS: ATTEND Internal Medicine
DX: E04.1 Nontoxic single thyroid nodule (principal)
CPT/HCPCS: 76536

== ENCOUNTER 2019-12-10 06:46 | Emergency (ER) | payer MEDICARE, OTHER ==
[2019-12-10 06:50] VITALS: TEMP 98.9
[2019-12-10] MEDS ORDERED: SODIUM CHLORIDE 0.9% 1,000 ML IV ONE (06:54)
[2019-12-10] MEDS ORDERED: ONDANSETRON 4 MG/2 ML VIAL IVP STA (06:54)
[2019-12-10] MEDS ORDERED: HYDROmorphone 0.5 MG/0.5 ML SYRINGE IVP STA ×3 (06:54→08:30)
[2019-12-10] MEDS ORDERED: SODIUM CHLORIDE 0.9% 1,000 ML IV SCH (07:00)
--- NOTE | 2019-12-10 07:06 | ED ---
Abdominal Pain HPI - General Chief Complaint: Abdominal Pain Stated Complaint: abd pain Time Seen by Provider: 12/10/19 06:51 Source: patient Mode of arrival: wheelchair - History of Present Illness Initial Comments: 54yo female with history of MTFR mutation and HTN presenting today for cc of abdominal pain. Patient states that she has had epigastric abdominal pain since 3AM. patient states she has experienced this before and "they couldnt find out what was wrong". She states she has had an upper endoscopy. Patient denies hx of pancreatitis, denies chest pressure, SOB, pain with deep inspiration, fevers, diarrhea. Endorses nausea and has had multiple episodes of vomiting mostly after attempting to drink water. Patient denies radiation of the pain, describes it as sharp in nature. Patient denies urinary symptoms. Hx of previous cholecystectomy. Patient denies noting symptoms prior to this morning. Patient states she has not been taking her atenolol and BP is noted to be elevated significantly on arrival. - Related Data Home Medications Medication Instructions Recorded Confirmed DULoxetine HCL [Cymbalta] 60 mg PO BID 05/23/16 12/10/19 Butalb/Acetaminophen/Caffeine 1 tab PO Q3-4H PRN 10/22/16 12/10/19 [Fioricet 50-325-40] HYDROcodone/APAP 10-325MG [[place] 1 tab PO QID PRN 10/22/16 12/10/19 10-325] Levothyroxine Sodium [Synthroid] 50 mcg PO DAILY 10/22/16 12/10/19 Losartan Potassium 100 mg PO DAILY 10/22/16 12/10/19 atenoloL [Tenormin] 25 mg PO BID 10/22/16 12/10/19 Aspirin [Adult Low Dose Aspirin EC] 81 mg PO DAILY 06/07/19 12/10/19 Atorvastatin [Lipitor] 10 mg PO DAILY 06/07/19 12/10/19 Previous Rx's Medication Instructions Recorded Pantoprazole Sodium [Protonix] 40 mg PO DAILY #14 tablet. 07/27/19 Pantoprazole Sodium [Protonix] 40 mg PO DAILY 7 Days #7 tablet. 12/10/19 Allergies Allergy/AdvReac Type Severity Reaction Status Date / Time No Known Allergies Allergy Verified 12/10/19 08:35 Review of Systems ROS Statement: Those systems with pertinent positive or pertinent negative responses have been documented in the HPI. ROS Other: All systems not noted in ROS Statement are negative. 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 History of Any Multi-Drug Resistant Organisms: None Reported Past Surgical History: Cholecystectomy, Hernia Repair, Orthopedic Surgery, Tubal Ligation, Uterine Ablation Additional Past Surgical History / Comment(s): LEFT hand surg & LEFT knee surg. Past Anesthesia/Blood Transfusion Reactions: No Reported Reaction Past Psychological History: Depression Smoking Status: Never smoker Past Alcohol Use History: None Reported Past Drug Use History: None Reported - Past Family History Mother Family Medical History: Asthma Father History Unknown: Yes Course Vital Signs 12/10/19 12/10/19 12/10/19 06:46 07:22 08:00 Temperature 98.9 F Pulse Rate 97 102 H 109 H Respiratory 19 18 20 Rate Blood Pressure 205/135 183/124 127/100 O2 Sat by Pulse 99 96 96 Oximetry 12/10/19 09:14 Temperature Pulse Rate Respiratory Rate Blood Pressure 127/95 O2 Sat by Pulse Oximetry - Reevaluation(s) Reevaluation #1: 12/10/19 08:09 reevaluation, patient states pain went down from 10/10 to a 4 or 5/10 Reevaluation #2: re-evaluated patient discussing laboratory studies as well as the imaging findings. Patient offered admission for pain control. She states she would like one more dose of pain medications and to go home. She states that she has had these episodes on and off x 3 years. She states this is not unusual and usually goes away after a day. She does not want to stay. I discussed importance of retu rn for worsening symptoms, BP medication compliance and importance of f/u. Patient verbalized understanding. Mother who is bedside states this happens often. 12/10/19 08:44 Medical Decision Making - Medical Decision Making CT pleural changes. No SOB/CP. No inspiratory pain or fevers. Hiatal hernia no other signficiant findings. Patient pain decreasing in ER pt stating she is ready to go, i offered admission for pain control further monitoring as patient seems to be uncomfortable with leukocytosis patient refused. Patient WBC count could be reactive but recommend outpatient f/u with repeat labs in 24-48 hours. patient is to return for increasing pain, she will be placed on protonix as PUD is on ddx. Patient otherwise has no acute EKG findings, troponin (-), pain very reproducible to palpation. She states identical to other episodes of "abdominal pain" she has had in the past. Discussed labs, CT with attending Dr. granda how is agreeable to care plan and discharge. - Lab Data Result diagrams: 12/10/19 07:09 12/10/19 07:09 Lab Results 12/10/19 12/10/19 12/10/19 Range/Units 07:09 07:09 07:09 WBC 21.2 H (3.8-10.6) k/uL RBC 5.54 H (3.80-5.40) m/uL Hgb 16.0 (11.4-16.0) gm/dL Hct 49.0 H (34.0-46.0) % MCV 88.6 (80.0-100.0) fL MCH 28.9 (25.0-35.0) pg MCHC 32.6 (31.0-37.0) g/dL RDW 13.1 (11.5-15.5) % Plt Count 441 (150-450) k/uL Neutrophils % 83 % Lymphocytes % 10 % Monocytes % 6 % Eosinophils % 0 % Basophils % 0 % Neutrophils # 17.6 H (1.3-7.7) k/uL Lymphocytes # 2.2 (1.0-4.8) k/uL Monocytes # 1.3 H (0-1.0) k/uL Eosinophils # 0.1 (0-0.7) k/uL Basophils # 0.0 (0-0.2) k/uL Sodium 137 (137-145) mmol/L Potassium 4.2 (3.5-5.1) mmol/L Chloride 104 (98-107) mmol/L Carbon Dioxide 20 L (22-30) mmol/L Anion Gap 13 mmol/L BUN 33 H (7-17) mg/dL Creatinine 0.80 (0.52-1.04) mg/dL Est GFR (CKD-EPI)AfAm >90 (>60 ml/min/1.73 sqM) Est GFR (CKD-EPI)NonAf 85 (>60 ml/min/1.73 sqM) Glucose 191 H (74-99) mg/dL Calcium 10.5 H (8.4-10.2) mg/dL Total Bilirubin 0.9 (0.2-1.3) mg/dL AST 25 (14-36) U/L ALT 23 (4-34) U/L Alkaline Phosphatase 107 (38-126) U/L Troponin I (0.000-0.034) ng/mL Total Protein 7.8 (6.3-8.2) g/dL Albumin 4.8 (3.5-5.0) g/dL Amylase 47 (30-110) U/L Lipase 69 (23-300) U/L Urine Color Yellow Urine Appearance Clear (Clear) Urine pH 6.0 (5.0-8.0) Ur Specific [place] >1.050 H (1.001-1.035) Urine Protein Trace H (Negative) Urine Glucose (UA) Negative (Negative) Urine Ketones Trace H (Negative) Urine Blood Negative (Negative) Urine Nitrite Negative (Negative) Urine Bilirubin Negative (Negative) Urine Urobilinogen <2.0 (<2.0) mg/dL Ur Leukocyte Esterase Negative (Negative) 12/10/19 Range/Units 07:09 WBC (3.8-10.6) k/uL RBC (3.80-5.40) m/uL Hgb (11.4-16.0) gm/dL Hct (34.0-46.0) % MCV (80.0-100.0) fL MCH (25.0-35.0) pg MCHC (31.0-37.0) g/dL RDW (11.5-15.5) % Plt Count (150-450) k/uL Neutrophils % % Lymphocytes % % Monocytes % % Eosinophils % % Basophils % % Neutrophils # (1.3-7.7) k/uL Lymphocytes # (1.0-4.8) k/uL Monocytes # (0-1.0) k/uL Eosinophils # (0-0.7) k/uL Basophils # (0-0.2) k/uL Sodium (137-145) mmol/L Potassium (3.5-5.1) mmol/L Chloride (98-107) mmol/L Carbon Dioxide (22-30) mmol/L Anion Gap mmol/L BUN (7-17) mg/dL Creatinine (0.52-1.04) mg/dL Est GFR (CKD-EPI)AfAm (>60 ml/min/1.73 sqM) Est GFR (CKD-EPI)NonAf (>60 ml/min/1.73 sqM) Glucose (74-99) mg/dL Calcium (8.4-10.2) mg/dL Total Bilirubin (0.2-1.3) mg/dL AST (14-36) U/L ALT (4-34) U/L Alkaline Phosphatase (38-126) U/L Troponin I <0.012 (0.000-0.034) ng/mL Total Protein (6.3-8.2) g/dL Albumin (3.5-5.0) g/dL Amylase (30-110) U/L Lipase (23-300) U/L Urine Color Urine Appearance (Clear) Urine pH (5.0-8.0) Ur Specific [place] (1.001-1.035) Urine Protein (Negative) Urine Glucose (UA) (Negative) Urine Ketones (Negative) Urine Blood (Negative) Urine Nitrite (Negative) Urine Bilirubin (Negative) Urine Urobilinogen (<2.0) mg/dL Ur Leukocyte Esterase (Negative) - EKG Data EKG Comments: Ventricular rate 96 bpm, OH interval 138 ms, QRS ration 76 ms, QT/QTC 372/469 ms normal sinus rhythm possible left atrial enlargement left anterior fascicular block noted no ST elevation or depressions appreciated Disposition Clinical Impression: Leukocytosis, Elevated blood pressure reading, Epigastric abdominal pain, Hiatal hernia, Pleural thickening Disposition: HOME SELF-CARE Condition: Good Instructions (If sedation given, give patient instructions): Peptic Ulcer (ED), Abdominal Pain (ED) Additional Instructions: Please use medication as discussed. Please follow-up with family doctor in the next 24 hours, repeat labs including CBC please. If pain worsens please immediately come to the ER. Please return to emergency room if the symptoms increase or worsen or for any other concerns. Prescriptions: Pantoprazole Sodium [Protonix] 40 mg PO DAILY 7 Days #7 tablet.dr Is patient prescribed a controlled substance at d/c from ED?: No Referrals: Eusebio Martin MD [Primary Care Provider] - 1-2 days Time of Disposition: 08:42
[2019-12-10] MEDS ORDERED: hydrALAZINE HCL 20 MG/ML 1 ML VIAL IVP STA (07:07)
[2019-12-10] MEDS ORDERED: LORazepam 2 MG/ML INJ IV STA (07:13)
[2019-12-10 07:32] LABS: Basophils % (A) 0 %; Eosinophils # (A) 0.1 k/uL (0-0.7); Eosinophils % (A) 0 %; Lymphocytes # (A) 2.2 k/uL (1.0-4.8); Lymphocytes % (A) 10 %; MCH 28.9 pg (25.0-35.0); MCHC 32.6 g/dL (31.0-37.0); MCV 88.6 fL (80.0-100.0); Mean Platelet Volume 7.1; Monocytes # (A) 1.3 k/uL (0-1.0); Monocytes % (A) 6 %; Neutrophils # (A) 17.6 k/uL (1.3-7.7); Neutrophils % (A) 83 %; Platelet Count 441 k/uL (150-450); RBC 5.54 m/uL (3.80-5.40); RDW 13.1 % (11.5-15.5); WBC 21.2 k/uL (3.8-10.6)
[2019-12-10 07:51] LABS: ALT 23 U/L (4-34); AST 25 U/L (14-36); African American GFR (CKD) >90 (>60 ml/min/1.73 sqM); Albumin 4.8 g/dL (3.5-5.0); Alkaline Phosphatase 107 U/L (38-126); Amylase 47 U/L (30-110); Anion Gap 13 mmol/L; Blood Urea Nitrogen 33 mg/dL (7-17); Calcium 10.5 mg/dL (8.4-10.2); Carbon Dioxide 20 mmol/L (22-30); Chloride 104 mmol/L (98-107); Glucose 191 mg/dL (74-99); Non-African American GFR(CKD) 85 (>60 ml/min/1.73 sqM); Potassium 4.2 mmol/L (3.5-5.1); Sodium 137 mmol/L (137-145); Total Bilirubin 0.9 mg/dL (0.2-1.3); Total Protein 7.8 g/dL (6.3-8.2)
[2019-12-10 08:04] VITALS: PULSE 109; RESP 20
[2019-12-10 08:14] LABS: Appearance,Urine Clear (Clear); Bilirubin,Urine Negative (Negative); Blood,Urine Negative (Negative); Color,Urine Yellow; Glucose,Urine (UA) Negative (Negative); Ketones,Urine Trace (Negative); Leukocyte Esterase,Urine Negative (Negative); Nitrite,Urine Negative (Negative); Protein,Urine Trace (Negative); Specific Gravity,Urine >1.050 (1.001-1.035); Urobilinogen,Urine <2.0 mg/dL (<2.0)
[2019-12-10] MEDS ORDERED: amLODIPine 5 MG TAB PO STA (08:16)
--- NOTE | 2019-12-10 08:26 | CT ---
EXAMINATION TYPE: CT abdomen pelvis w con DATE OF EXAM: 12/10/2019 COMPARISON: 07/27/2019 INDICATION: Epigastric pain, nausea and vomiting DLP: 1608.4 mGycm, Automated exposure control for dose reduction was used. CONTRAST: 100 mL of Isovue 300. Study performed without Oral Contrast TECHNIQUE: Axial images were obtained from above the diaphragm to the pubic rami in the axial plane a t 5 mm thick sections. Reconstructed images are reviewed on the computer in the coronal plane. FINDINGS: Limited CT sections are obtained the lung bases. There is a small pleural-based density in the poste rior right lung measuring 0.5 cm in depth. Series 201 image 8 lung windows. This was present previous ly and may be slightly thicker than the comparison. Monitoring is recommended. Hiatal hernia is pres ent. CT ABDOMEN: Liver: Normal Spleen: Normal Pancreas: Normal Adrenal glands: The adrenal glands are normal. Gallbladder: Surgically absent Kidneys: No masses are evident. No hydronephrosis is present. No cysts are present. Contrast cause s some limitation in evaluation for renal stones. Several nonobstructing renal stones however are jarrell pected including a 0.4 cm calcification inferior pole left kidney, a left renal pelvic stone measurin g 0.3 cm a superior 0.4 cm right renal stone and a 0.5 cm superior pole left renal stone. Early excre tion of contrast for a couple of these may cause an artifact appearance for stone. Delayed images obt ained through the kidneys appear unremarkable Aorta: Vascular calcification is within the aorta. Inferior vena cava: Normal. CT PELVIS: Loops of bowel within the abdomen and pelvis are normal. Study is without oral contrast limiting bowel evaluation. Appendix: Normal as visualized. Urinary bladder: Normal. Genitourinary structures: Uterus is unremarkable. Adnexal regions are normal. No free fluid is within the pelvis. Osseous structures: No suspicious lytic or sclerotic lesions. Facet degenerative changes present with in the lower lumbar spine. Degenerative disc changes within the lower lumbar spine. IMPRESSIONS: 1. Nonobstructing renal stones. 2. Hiatal hernia. 3. Small pleural-based thickening posterior right lung may have increased slightly in thickness over the interval. Follow-up CT chest in 3 months is recommended to reevaluate this finding.
[2019-12-10] MEDS ORDERED: PANTOPRAZOLE 40 MG/10 ML VIAL IVP STA (08:27)
[2019-12-10 09:15] VITALS: BP 127/95
== END 2019-12-10 09:15 | disposition home or self-care (01) ==
LOC: EC 06:46
DX: K44.9 Diaphragmatic hernia without obstruction or gangrene (principal); I10 Essential (primary) hypertension; E78.5 Hyperlipidemia, unspecified; F32.9 Major depressive disorder, single episode, unspecified; J92.9 Pleural plaque without asbestos; Z79.899 Other long term (current) drug therapy; Z79.82 Long term (current) use of aspirin; Z86.718 Personal history of other venous thrombosis and embolism; Z86.711 Personal history of pulmonary embolism; Z90.49 Acquired absence of other specified parts of digestive tract; Z98.51 Tubal ligation status
CPT/HCPCS: 36415; 93005; 80053; 82150; 83690; 84484; 85025; 81003; 74177; 99284; 96374; 96375 ×4; 96376; 96361 ×2; J2060; J0360; J2405; C9113; J1170; Q9967

== ENCOUNTER 2020-09-11 14:15 | Emergency (ER) | payer MEDICARE, OTHER ==
[2020-09-11 14:20] VITALS: TEMP 98.5
[2020-09-11] MEDS ORDERED: diphenhydrAMINE 50 MG/ML 1 ML VIAL IVP STA (14:32)
[2020-09-11] MEDS ORDERED: SODIUM CHLORIDE 0.9% 1,000 ML IV STA (14:32)
[2020-09-11] MEDS ORDERED: MORPHINE SULFATE 4 MG/ML SYRINGE IV STA (14:32)
[2020-09-11] MEDS ORDERED: PANTOPRAZOLE 40 MG/10 ML VIAL IVP STA (14:32)
[2020-09-11] MEDS ORDERED: ONDANSETRON 4 MG/2 ML VIAL IVP STA (14:32)
[2020-09-11 14:47] LABS: Basophils % (A) 0 %; Eosinophils # (A) 0.1 k/uL (0-0.7); Eosinophils % (A) 1 %; HCT 49.9 % (34.0-46.0); Lymphocytes % (A) 9 %; MCH 29.9 pg (25.0-35.0); Mean Platelet Volume 6.8; Monocytes # (A) 0.3 k/uL (0-1.0); Monocytes % (A) 3 %; Neutrophils # (A) 9.1 k/uL (1.3-7.7); Neutrophils % (A) 87 %; Platelet Count 348 k/uL (150-450); RBC 5.67 m/uL (3.80-5.40); RDW 12.7 % (11.5-15.5); WBC 10.5 k/uL (3.8-10.6)
[2020-09-11 14:57] LABS: Appearance,Urine Cloudy (Clear); Bacteria,Urine Occasional /hpf; Bilirubin,Urine Negative (Negative); Blood,Urine Negative (Negative); Color,Urine Yellow; Glucose,Urine (UA) Negative (Negative); Ketones,Urine 3+ (Negative); Leukocyte Esterase,Urine Trace (Negative); Mucus,Urine Many /hpf; Nitrite,Urine Negative (Negative); Protein,Urine 2+ (Negative); RBC,Urine 15 /hpf (0-5); Specific Gravity,Urine 1.036 (1.001-1.035); Squamous Epithelial Cell,Urine 37 /hpf (0-4); WBC,Urine <1 /hpf (0-5)
[2020-09-11 14:58] LABS: ALT 13 U/L (4-34); AST 24 U/L (14-36); African American GFR (CKD) >90 (>60 ml/min/1.73 sqM); Alkaline Phosphatase 110 U/L (38-126); Amylase 58 U/L (30-110); Anion Gap 14 mmol/L; Blood Urea Nitrogen 16 mg/dL (7-17); Calcium 10.4 mg/dL (8.4-10.2); Carbon Dioxide 23 mmol/L (22-30); Chloride 102 mmol/L (98-107); Glucose 142 mg/dL (74-99); Lipase 58 U/L (23-300); Non-African American GFR(CKD) >90 (>60 ml/min/1.73 sqM); Potassium 4.1 mmol/L (3.5-5.1); Sodium 139 mmol/L (137-145); Total Bilirubin 0.8 mg/dL (0.2-1.3); Total Protein 8.1 g/dL (6.3-8.2)
[2020-09-11] MEDS ORDERED: MORPHINE SULFATE 4 MG/ML SYRINGE IVP STA (15:21)
--- NOTE | 2020-09-11 16:47 | CT ---
EXAMINATION TYPE: CT abdomen pelvis w con DATE OF EXAM: 09/11/2020 COMPARISON: 12/10/2019. HISTORY: Epigastric pain. CT DLP: 1297.3 mGycm Automated exposure control for dose reduction was used. TECHNIQUE: Helical acquisition of images was performed from the lung bases through the pelvis. CONTRAST: Performed without Oral Contrast and with IV Contrast, patient injected with 100 mL of Isovue 300. FINDINGS: LUNG BASES: No significant abnormality is appreciated. LIVER/GB: No acute abnormality is appreciated. Cholecystectomy with mild biliary ductal dilatation, m ay be postsurgical change. PANCREAS: No significant abnormality is seen. SPLEEN: No significant abnormality is seen. ADRENALS: No significant abnormality is seen. KIDNEYS: No significant abnormality is seen. FREE AIR: No free air is visualized. RETROPERITONEAL ADENOPATHY: None visualized REPRODUCTIVE ORGANS: No significant abnormality is seen URINARY BLADDER: No significant abnormality is seen. PELVIC ADENOPATHY: None visualized. OSSEOUS STRUCTURES: No significant abnormality is seen. BOWEL: Diffuse colonic wall thickening. No significant fat stranding. No bowel obstruction, free air or fluid. Normal appendix. OTHER: None IMPRESSION: DIFFUSE COLONIC WALL THICKENING, MAY RELATE TO COLITIS. NO BOWEL OBSTRUCTION OR FREE FLUID.
--- NOTE | 2020-09-11 16:48 | ED ---
Abdominal Pain HPI - General Chief Complaint: Abdominal Pain Stated Complaint: Abd Pain Source: patient, RN notes reviewed Mode of arrival: wheelchair Limitations: no limitations - History of Present Illness Initial Comments: Patient is a 55-year-old female that presents to emergency department complaining of abdominal pain that started this morning. She notes that she does have her gallbladder out but the pain feels a "gallbladder attack. She notes that she does have a history of chronic abdominal pain. She notes that she started puking this morning along with the pain. She notes that she was started sweating get the shakes so she came in for evaluation. She did appear to be in moderate distress and pain while sitting up in bed during the exam interview. She does note that she follows a GI specialist in the last scoped they did didn't find anything. She noted that her pain is approximately an 8-9 out of 10 unrelieved with at home medications. She denied any chest pain shortness of breath headache diarrhea constipation fever fatigue chills. - Related Data Home Medications Medication Instructions Recorded Confirmed Butalb/Acetaminophen/Caffeine 1 tab PO DAILY PRN 10/22/16 09/11/20 [Fioricet 50-325-40] HYDROcodone/APAP 10-325MG [Bronson 1 tab PO QID PRN 10/22/16 09/11/20 10-325] atenoloL [Tenormin] 25 mg PO BID 10/22/16 09/11/20 DULoxetine HCL [Cymbalta] 20 mg PO DAILY 09/11/20 09/11/20 Pantoprazole Sodium [Protonix] 40 mg PO DAILY PRN 09/11/20 09/11/20 Allergies Allergy/AdvReac Type Severity Reaction Status Date / Time No Known Allergies Allergy Verified 09/11/20 16:24 Review of Systems ROS Statement: Those systems with pertinent positive or pertinent negative responses have been documented in the HPI. ROS Other: All systems not noted in ROS Statement are negative. 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 History of Any Multi-Drug Resistant Organisms: None Reported Past Surgical History: Cholecystectomy, Hernia Repair, Orthopedic Surgery, Tubal Ligation, Uterine Ablation Additional Past Surgical History / Comment(s): LEFT hand surg & LEFT knee surg. Past Anesthesia/Blood Transfusion Reactions: No Reported Reaction Past Psychological History: Depression Smoking Status: Never smoker Past Alcohol Use History: None Reported Past Drug Use History: None Reported - Past Family History Mother Family Medical History: Asthma Father History Unknown: Yes General Exam Limitations: no limitations General appearance: alert, in no apparent distress, in distress (Secondary to pain) Head exam: Present: atraumatic, normocephalic, normal inspection Eye exam: Present: normal appearance, PERRL, EOMI. Absent: scleral icterus, conjunctival injection, periorbital swelling Neck exam: Present: normal inspection Respiratory exam: Present: normal lung sounds bilaterally. Absent: respiratory distress, wheezes, rales, rhonchi, stridor Cardiovascular Exam: Present: regular rate, normal rhythm, normal heart sounds. Absent: systolic murmur, diastolic murmur, rubs, gallop, clicks GI/Abdominal exam: Present: soft, normal bowel sounds, other (Generalized discomfort to palpation no point tenderness.). Absent: distended, tenderness, guarding, rebound, rigid Extremities exam: Present: normal inspection, full ROM, normal capillary refill. Absent: tenderness, pedal edema, joint swelling, calf tenderness Neurological exam: Present: alert, oriented X3 Psychiatric exam: Present: normal affect, normal mood Skin exam: Present: warm, dry, intact, normal color. Absent: rash Course Vital Signs 09/11/20 14:18 Temperature 98.5 F Pulse Rate 112 H Respiratory 20 Rate Blood Pressure 177/129 O2 Sat by Pulse 98 Oximetry Medical Decision Making - Medical Decision Making 55-year-old female complaining of abdominal pain starting's morning with nausea and vomiting. Patient does have a history of intractable abdominal pain. Labs, CT of the abdomen and pelvis, 1 L normal saline, 4 mg of Zofran, 4 mg of morphine, 50 mg of Benadryl, 40 mg of Protonix ordered. Patient states that she refused to go to computed tomography scan unless she got more pain medication, 4 mg of morphine ordered Labs: Showing dehydration pattern with increased hemoglobin at 17.0 and hematocrit 49.9. Urine also shows dehydration with 3+ ketones 2+ protein. Urine also shows occasional bacteria, 1 g of Rocephin ordered. Given clinical symptoms and patient's history most likely a colitis flareup. Case discussed with Dr. Maradiaga, patient can discharge home with follow-up to GI specialist. - Lab Data Result diagrams: 09/11/20 14:36 09/11/20 14:36 Lab Results 09/11/20 09/11/20 09/11/20 Range/Units 14:36 14:36 14:36 WBC 10.5 (3.8-10.6) k/uL RBC 5.67 H (3.80-5.40) m/uL Hgb 17.0 H (11.4-16.0) gm/dL Hct 49.9 H (34.0-46.0) % MCV 88.0 (80.0-100.0) fL MCH 29.9 (25.0-35.0) pg MCHC 34.0 (31.0-37.0) g/dL RDW 12.7 (11.5-15.5) % Plt Count 348 (150-450) k/uL MPV 6.8 Neutrophils % 87 % Lymphocytes % 9 % Monocytes % 3 % Eosinophils % 1 % Basophils % 0 % Neutrophils # 9.1 H (1.3-7.7) k/uL Lymphocytes # 1.0 (1.0-4.8) k/uL Monocytes # 0.3 (0-1.0) k/uL Eosinophils # 0.1 (0-0.7) k/uL Basophils # 0.0 (0-0.2) k/uL Sodium 139 (137-145) mmol/L Potassium 4.1 (3.5-5.1) mmol/L Chloride 102 (98-107) mmol/L Carbon Dioxide 23 (22-30) mmol/L Anion Gap 14 mmol/L BUN 16 (7-17) mg/dL Creatinine 0.64 (0.52-1.04) mg/dL Est GFR (CKD-EPI)AfAm >90 (>60 ml/min/1.73 sqM) Est GFR (CKD-EPI)NonAf >90 (>60 ml/min/1.73 sqM) Glucose 142 H (74-99) mg/dL Plasma Lactic Acid Corky (0.7-2.0) mmol/L Calcium 10.4 H (8.4-10.2) mg/dL Total Bilirubin 0.8 (0.2-1.3) mg/dL AST 24 (14-36) U/L ALT 13 (4-34) U/L Alkaline Phosphatase 110 (38-126) U/L Total Protein 8.1 (6.3-8.2) g/dL Albumin 5.0 (3.5-5.0) g/dL Amylase 58 (30-110) U/L Lipase 58 (23-300) U/L Urine Color Yellow Urine Appearance Cloudy H (Clear) Urine pH 7.0 (5.0-8.0) Ur Specific [place] 1.036 H (1.001-1.035) Urine Protein 2+ H (Negative) Urine Glucose (UA) Negative (Negative) Urine Ketones 3+ H (Negative) Urine Blood Negative (Negative) Urine Nitrite Negative (Negative) Urine Bilirubin Negative (Negative) Urine Urobilinogen 2.0 (<2.0) mg/dL Ur Leukocyte Esterase Trace H (Negative) Urine RBC 15 H (0-5) /hpf Urine WBC <1 (0-5) /hpf Ur Squamous Epith Cells 37 H (0-4) /hpf Urine Bacteria Occasional H (None) /hpf Urine Mucus Many H (None) /hpf 09/11/20 Range/Units 14:36 WBC (3.8-10.6) k/uL RBC (3.80-5.40) m/uL Hgb (11.4-16.0) gm/dL Hct (34.0-46.0) % MCV (80.0-100.0) fL MCH (25.0-35.0) pg MCHC (31.0-37.0) g/dL RDW (11.5-15.5) % Plt Count (150-450) k/uL MPV Neutrophils % % Lymphocytes % % Monocytes % % Eosinophils % % Basophils % % Neutrophils # (1.3-7.7) k/uL Lymphocytes # (1.0-4.8) k/uL Monocytes # (0-1.0) k/uL Eosinophils # (0-0.7) k/uL Basophils # (0-0.2) k/uL Sodium (137-145) mmol/L Potassium (3.5-5.1) mmol/L Chloride (98-107) mmol/L Carbon Dioxide (22-30) mmol/L Anion Gap mmol/L BUN (7-17) mg/dL Creatinine (0.52-1.04) mg/dL Est GFR (CKD-EPI)AfAm (>60 ml/min/1.73 sqM) Est GFR (CKD-EPI)NonAf (>60 ml/min/1.73 sqM) Glucose (74-99) mg/dL Plasma Lactic Acid Corky 1.4 (0.7-2.0) mmol/L Calcium (8.4-10.2) mg/dL Total Bilirubin (0.2-1.3) mg/dL AST (14-36) U/L ALT (4-34) U/L Alkaline Phosphatase (38-126) U/L Total Protein (6.3-8.2) g/dL Albumin (3.5-5.0) g/dL Amylase (30-110) U/L Lipase (23-300) U/L Urine Color Urine Appearance (Clear) Urine pH (5.0-8.0) Ur Specific [place] (1.001-1.035) Urine Protein (Negative) Urine Glucose (UA) (Negative) Urine Ketones (Negative) Urine Blood (Negative) Urine Nitrite (Negative) Urine Bilirubin (Negative) Urine Urobilinogen (<2.0) mg/dL Ur Leukocyte Esterase (Negative) Urine RBC (0-5) /hpf Urine WBC (0-5) /hpf Ur Squamous Epith Cells (0-4) /hpf Urine Bacteria (None) /hpf Urine Mucus (None) /hpf - Radiology Data Radiology results: report reviewed, image reviewed CT of the abdomen and pelvis: Diffuse colonic wall thickening may relate to colitis. No bowel obstruction or free fluid. Disposition Clinical Impression: Intractable abdominal pain, Epigastric pain, Colitis Disposition: HOME SELF-CARE Condition: Stable Instructions (If sedation given, give patient instructions): Abdominal Pain (ED) Additional Instructions: Please return to the Emergency Department if symptoms worsen or any other concerns. Follow-up with GI specialist at her convenience. Follow-up with primary care in the next several days. Drink plenty water. Take Zofran and time with history as prescribed. Is patient prescribed a controlled substance at d/c from ED?: No Referrals: Eusebio Martin MD [Primary Care Provider] - 1-2 days Patricia Peter MD [STAFF PHYSICIAN] - 1-2 days Time of Disposition: 17:00
[2020-09-11] MEDS ORDERED: ACET/COD 300 MG/30 MG STARTER PACK 6 TAB BTL PO STA (16:55)
[2020-09-11] MEDS ORDERED: ONDANSETRON ODT 4 MG TAB PO STA (16:55)
[2020-09-11 17:06] VITALS: BP 170/90; PULSE 111; RESP 18
== END 2020-09-11 17:10 | disposition home or self-care (01) ==
LOC: EC 14:15
DX: K52.9 Noninfective gastroenteritis and colitis, unspecified (principal); I10 Essential (primary) hypertension; E78.5 Hyperlipidemia, unspecified; F32.9 Major depressive disorder, single episode, unspecified; Z79.899 Other long term (current) drug therapy; Z86.711 Personal history of pulmonary embolism; Z86.718 Personal history of other venous thrombosis and embolism
CPT/HCPCS: 96375 ×5; 96376 ×3; 96361 ×3; 99284 ×2; 96365; 96374; 36415; 80053; 82150; 83605; 83690; 85025; 81001; 74177; J2270; J1200; J2405; J0696; C9113; Q9967

== ENCOUNTER → 2023-10-25 | Outpatient (CLI) | payer MEDICARE, OTHER ==
[2023-10-25 19:21] LABS: INR 0.94 sec (0.93-1.11); Prothrombin Time 10.2 sec (9.9-11.9)
[2023-10-26 01:53] LABS: Basophils # (A) 0.04 X 10*3/uL (0.00-0.10); Basophils % (A) 0.5 %; Eosinophils % (A) 2.6 %; HCT 43.6 % (37.2-46.3); HGB 14.2 g/dL (12.0-15.0); Lymphocytes % (A) 31.3 %; MCH 28.9 pg (27.0-32.0); MCHC 32.6 g/dL (32.0-37.0); MCV 88.8 FL (80.0-97.0); Mean Platelet Volume 9.6 FL (9.5-12.2); Monocytes # (A) 0.54 X 10*3/uL (0.20-1.00); NRBC Per 100 WBC 0 X 10*3/uL (0.00-0.01); Neutrophils # (A) 4.45 X 10*3/uL (1.80-7.70); Neutrophils % (A) 58.2 %; Platelet Count 293 X 10*3/uL (140-440); RBC 4.91 X 10*6/uL (4.10-5.20); WBC 7.66 X 10*3/uL (4.50-10.00)
[2023-10-26 02:09] LABS: BUN/Creat Ratio 19.71 Ratio (12.00-20.00); Blood Urea Nitrogen 13.8 mg/dL (9.0-27.0); Calcium 9.6 mg/dL (8.7-10.3); Carbon Dioxide 27.5 mmol/L (21.6-31.8); Chloride 103 mmol/L (96-109); Glucose 99 mg/dL (70-110); Sodium 143 mmol/L (135-145)
== END | disposition home or self-care (01) ==
LOC: LABPAT 13:52
PROVIDERS: ATTEND Orthopaedic Surgery
DX: Z01.812 Encounter for preprocedural laboratory examination (principal); M17.11 Unilateral primary osteoarthritis, right knee; Z79.899 Other long term (current) drug therapy; Z79.01 Long term (current) use of anticoagulants; Z22.322 Carrier or suspected carrier of Methicillin resistant Staphylococcus aureus
CPT/HCPCS: 80048; 85025; 85610; 87070

== ENCOUNTER → 2023-10-25 | Outpatient (CLI) | payer MEDICARE, OTHER ==
--- NOTE | 2023-10-25 14:53 | XR ---
EXAMINATION TYPE: XR chest 2V DATE OF EXAM: 10/25/2023 COMPARISON: NONE HISTORY: Shortness of breath TECHNIQUE: Frontal and lateral views of the chest are obtained. FINDINGS: Scattered senescent parenchymal changes noted. Hyperinflation compatible with COPD. No evidence for infiltrate. No evidence for atelectasis. Heart size is stable. Mediastinal structures are stable and grossly unremarkable. No evidence for hilar prominence. Degenerative changes dorsal spine. IMPRESSION: 1. No evidence for acute pulmonary disease.
== END | disposition home or self-care (01) ==
LOC: LABWHC1 13:58
PROVIDERS: ATTEND Nurse Practitioner Family
DX: Z01.818 Encounter for other preprocedural examination (principal); F17.210 Nicotine dependence, cigarettes, uncomplicated; R06.02 Shortness of breath
CPT/HCPCS: 71046

== ENCOUNTER 2023-11-04 09:12 | Day surgery (SDC) | payer MEDICARE, OTHER ==
[~2023-11-04 09:12] MED LIST changes: +ACETAMINOPHEN TAB 500 MG TAB ONE; -DEXAMETHASONE SOD PHOSPHATE 10 MG/ML 1 ML VIAL IV ONE; +DEXAMETHASONE SOD PHOSPHATE 4 MG/ML 1 ML VIAL ONE; -FAMOTIDINE 20 MG/2 ML VIAL IV PRN; -HEPARIN SODIUM,PORCINE 5,000 UNIT/ML 1 ML VIAL SQ ONE; +KETAMINE HCL IN 0.9 % NACL 50 MG/5 ML SYRINGE ONE; +LACTATED RINGERS 1,000 ML BAG ONE; -LIDOCAINE 1% 20 ML VIAL (10MG/ML) FOR IV START INTRADERMA PRN; +MELOXICAM 7.5 MG TAB ONE; -MIDAZOLAM 2 MG/2 ML VIAL IV PRN; +MIDAZOLAM 2 MG/2 ML VIAL ONE; -ONDANSETRON 4 MG/2 ML VIAL IVP ONE; +ONDANSETRON 4 MG/2 ML VIAL ONE; +PROPOFOL 10 MG/ML 20 ML VIAL IV ONE; +ROPIVACAINE 5 MG/ML 30 ML VIAL ONE; -SCOPOLAMINE 1.5MG/72HR PATCH TRANSDERM ONE; +SODIUM CHLORIDE 0.9% 1,000 ML BAG ONE; +TRANEXAMIC 1,000 MG/100ML-NACL PREMIX BAG ONE; +ceFAZolin 1,000 MG VIAL ONE; -ceFAZolin 2 GM in SODIUM CHLORIDE 0.9% 100 ML IVPB ONE; +fentaNYL (PF) 50 MCG/ML 2 ML AMP ONE
[2023-11-04] MEDS ORDERED: HYDROmorphone 0.5 MG/0.5 ML SYRINGE ONE ×4 (09:35→10:07)
[2023-11-04] MEDS ORDERED: MEPERIDINE 50 MG/ML SYRINGE ONE (10:14)
[2023-11-04] MEDS ORDERED: KETOROLAC 15 MG/ML 1 ML VIAL ONE (10:19)
[2023-11-04] MEDS ORDERED: ACETAMINOPHEN IV (For NPO) 100 ML ONE (10:19)
[2023-11-04] MEDS ORDERED: MIDAZOLAM 2 MG/2 ML VIAL ONE (10:31)
[2023-11-04] MEDS ORDERED: HYDROmorphone 1 MG/ML 1 ML SYRINGE ONE ×8 (10:46→20:40)
[2023-11-04] MEDS ORDERED: MULTIVITAMINS, THERA 1 EACH TAB ONE (13:51)
[2023-11-04] MEDS ORDERED: SENNOSIDES-DOCUSATE SODIUM 1 EACH TAB PO ONE ×2 (20:39)
[2023-11-04] MEDS ORDERED: cloNIDine HCL 0.1 MG TAB ONE (20:40)
[2023-11-04] MEDS ORDERED: SODIUM CHLORIDE 0.9% 1,000 ML BAG ONE (23:59)
[2023-11-04] MEDS ORDERED: ceFAZolin 1,000 MG VIAL ONE (23:59)
[2023-11-04] MEDS ORDERED: SODIUM CHLORIDE 0.9% 50 ML BAG ONE (23:59)
[2023-11-05] MEDS ORDERED: HYDROmorphone 1 MG/ML 1 ML SYRINGE ONE ×14 (00:37→22:06)
[2023-11-05] MEDS ORDERED: PANTOPRAZOLE 40 MG TABLET PO ONE ×2 (00:52)
[2023-11-05] MEDS ORDERED: HYDROcodone/APAP 7.5-325MG 1 EACH TAB ONE ×4 (02:55→09:09)
[2023-11-05] MEDS ORDERED: METOPROLOL TARTRATE 50 MG TAB ONE ×2 (09:08)
[2023-11-05] MEDS ORDERED: cloNIDine HCL 0.1 MG TAB ONE ×2 (09:09→20:34)
[2023-11-05] MEDS ORDERED: LOSARTAN 50 MG TAB ONE (09:09)
[2023-11-05] MEDS ORDERED: SERTRALINE 100 MG TAB ONE (09:09)
[2023-11-05] MEDS ORDERED: ENOXAPARIN 30 MG/0.3 ML SYRINGE SQ ONE (10:20)
[2023-11-05] MEDS ORDERED: ACETAMINOPHEN IV (For NPO) 1,000 MG/100 ML VIAL ONE (10:21)
[2023-11-05] MEDS ORDERED: MULTIVITAMINS, THERA 1 EACH TAB ONE (11:27)
[2023-11-05] MEDS ORDERED: HYDROcodone/APAP 10-325MG 1 EACH TAB ONE ×4 (14:20→20:34)
[2023-11-05] MEDS ORDERED: ceFAZolin 1,000 MG VIAL ONE (23:59)
[2023-11-05] MEDS ORDERED: SODIUM CHLORIDE 0.9% 1,000 ML BAG ONE (23:59)
[2023-11-05] MEDS ORDERED: SODIUM CHLORIDE 0.9% 50 ML BAG ONE (23:59)
[2023-11-06] MEDS ORDERED: HYDROmorphone 1 MG/ML 1 ML SYRINGE ONE ×6 (01:24→06:29)
[2023-11-06] MEDS ORDERED: HYDROcodone/APAP 10-325MG 1 EACH TAB ONE ×6 (03:09→15:46)
[2023-11-06] MEDS ORDERED: METOPROLOL TARTRATE 50 MG TAB ONE ×2 (08:06)
[2023-11-06] MEDS ORDERED: SERTRALINE 100 MG TAB ONE (08:06)
[2023-11-06] MEDS ORDERED: ENOXAPARIN 30 MG/0.3 ML SYRINGE SQ ONE (08:06)
[2023-11-06] MEDS ORDERED: cloNIDine HCL 0.1 MG TAB ONE (08:06)
[2023-11-06] MEDS ORDERED: LOSARTAN 50 MG TAB ONE (08:07)
[2023-11-06] MEDS ORDERED: PREGABALIN 50 MG CAP ONE ×2 (13:45)
--- NOTE | 2023-11-15 15:51 | HP ---
HISTORY AND PHYSICAL DATE OF SURGERY: 11/04/2023. HISTORY OF PRESENT ILLNESS: Heather Eid is a 58-year-old patient seen with symptomatic right knee osteoarthritis. We discussed options regarding treatment. She elected to proceed with right total knee arthroplasty. Consent regarding the procedure was obtained. Clearance was provided by Laura Fairchild NP. PAST MEDICAL HISTORY: Hypothyroidism and hypertension. PAST SURGICAL HISTORY: Cholecystectomy, hand surgery, and knee arthroscopy. DAILY MEDICATIONS: 1. Clonidine. 2. Losartan. 3. Mohler. ALLERGIES: None. SOCIAL HISTORY: She denies tobacco use. PHYSICAL EVALUATION OF THE RIGHT KNEE: Range of motion is -1/2, 115 degrees. Mild effusion. Tenderness along the lateral joint line. Crepitance, lateral patellofemoral compartments with range of motion. Pain with patellofemoral compression. Ligaments stable. Hip rotation without pain. Distal neurovascular exam is intact. RADIOGRAPHS: Right knee radiographs revealed severe osteoarthritic changes. IMPRESSION: 1. Right knee osteoarthritis. 2. Hypertension. 3. Hyperlipidemia. 4. History of pulmonary embolism. PLAN: Right total knee arthroplasty. MMODL / IJN: [id number] /
--- NOTE | 2023-11-15 15:52 | OP ---
OPERATIVE REPORT DATE OF SERVICE : 11/04/2023 PREOPERATIVE DIAGNOSIS: Right knee osteoarthritis. POSTOPERATIVE DIAGNOSIS: Right knee osteoarthritis. PROCEDURE: Right total knee arthroplasty. SWINE NUTRITIONIST: KODAK Langford. ANESTHESIA: Spinal. ESTIMATED BLOOD LOSS: 40 mL. COMPLICATIONS: None. The patient tolerated the procedure well. IMPLANTS UTILIZED: 1. DePuy Attune size 5 narrow right cruciate retaining femur, cemented. 2. DePuy Attune size 4 cemented fixed bearing tibial base plate. 3. DePuy Attune size 5 fixed bearing cruciate retaining 7 mm polyethylene tibial insert. 4. DePuy Attune 35 mm all-polyethylene cemented patella. INDICATIONS FOR PROCEDURE: This is a 58-year-old patient seen with symptomatic severe right knee osteoarthritis. After having treatment options discussed, she elected to proceed with right total knee arthroplasty. Consent obtained. DESCRIPTION OF PROCEDURE: The patient was taken to the operative suite after having undergone adductor canal block and iPACK block by Department of Anesthesia. She received preoperative IV antibiotic and TXA. She underwent a spinal anesthetic by Department of Anesthesia. A well-padded tourniquet placed in proximal right thigh. Right lower extremity prepped and draped in normal sterile orthopedic fashion. Extremity elevated, tourniquet insufflated to 300. Standard anterior incision made sharply through skin. Dissection taken down to the extensor mechanism. Medial arthrotomy made. Patella everted. Knee flexed. Advanced osteoarthritis noted. Distal intramedullary drill hole was made through the femur. Distal femoral cutting guide was positioned. Distal femoral cut was made. We now placed a proximal tibial guide and made our proximal tibial cut. We now placed our sizing guide over the distal femur, secured the pins and then placed a 4- in-1 cutting block along the distal femur. We now made 4-in-1 cuts along the distal femur. We now placed trial components along the proximal tibia and tibial tray including the distal femoral component. We took the knee through range of motion, we had full range of motion with good overall stability noted. We now everted the patella and made a flush cut with patellar on quad tendon. We now drilled appropriate holes and placed the appropriate trial patella and it tracked nicely. The trial patella was removed. All trial components were removed. We now placed a retractor on the proximal tibia. We templated our tibia and made the appropriate keel punch for that. We now irrigated the wound out copiously with mechanical irrigation. We know opened our implants. Next, the methylmethacrylate was ready. We placed on the proximal tibia and cemented down on the tibial component, making sure to remove any excess methylmethacrylate. We now introduced our polyethylene tibial tray and made sure it was secured. We now cemented down our femoral component, making sure we removed any excess methylmethacrylate. We took the knee in the full extension, back into flexion, making sure again we had removed any excess methylmethacrylate. We now cemented our patellar component. Secured patellar clamp. We held it in position with the knee in full extension until the methylmethacrylate was hardened. The patella clamp was removed. I took the knee through range of motion with good range of motion, good overall stability. We now released the tourniquet. Achieved additional hemostasis via electrocautery. Irrigated the wound out copiously with pulse lavage mechanical irrigation. I then repaired the extensor mechanism with #1 Ethibond suture. I checked the repair and range of motion was stable. The subcutaneous soft tissue was repaired with Vicryl. The skin was repaired with a subcuticular running suture, augmented with glue. Sterile dressings were applied followed by a loose Gino bandage. The patient was then awakened, transferred to a bed and then recovery in stable condition, having tolerated procedure well. KODAK Langford, assisted in all aspects of this complex procedure. MMODL / IJN: [id number] /
--- NOTE | 2023-12-11 07:24 | XR ---
Patient Heather Eid ID [id number] EXAMINATION TYPE: XR knee limited RT DATE OF EXAM: 11/04/2023 COMPARISON: None available during PACS downtime HISTORY: Post knee replacement TECHNIQUE: AP and lateral right knee FINDINGS: There is a right knee prosthesis with tibial and femoral components. Postsurgical soft tiss ue changes are evident. No acute fractures are evident. IMPRESSION: 1. No acute fractures post right knee replacement.
== END 2023-11-06 17:00 | disposition home or self-care (01) ==
LOC: OR 09:12 → UNDOADMIN 09:18 → DISRECOVER 09:18 → OR 11-06 17:00 → UNDODISIN 11-06 17:08
PROVIDERS: ATTEND Orthopaedic Surgery
DX: M17.11 Unilateral primary osteoarthritis, right knee (principal); I10 Essential (primary) hypertension; F32.A Depression, unspecified; K21.9 Gastro-esophageal reflux disease without esophagitis; E03.9 Hypothyroidism, unspecified; E78.5 Hyperlipidemia, unspecified; Z79.899 Other long term (current) drug therapy; Z86.711 Personal history of pulmonary embolism; Z86.73 Personal history of transient ischemic attack (TIA), and cerebral infarction without residual deficits
CPT/HCPCS: 64448; 64999

== ENCOUNTER → 2024-04-20 | Outpatient (CLI) | payer MEDICARE, OTHER ==
[2024-04-20 15:09] LABS: MCH 29.3 pg (27.0-32.0); MCHC 31.8 g/dL (32.0-37.0); MCV 92.1 FL (80.0-97.0); Mean Platelet Volume 9.9 FL (9.5-12.2); NRBC Per 100 WBC 0 X 10*3/uL (0.00-0.01); Platelet Count 326 X 10*3/uL (140-440); RBC 4.78 X 10*6/uL (4.10-5.20); RDW 14.1 % (11.5-14.5); WBC 7.36 X 10*3/uL (4.50-10.00)
[2024-04-20 15:10] LABS: Basophils # (A) 0.05 X 10*3/uL (0.00-0.10); Basophils % (A) 0.7 %; Eosinophils # (A) 0.47 X 10*3/uL (0.04-0.35); Eosinophils % (A) 6.4 %; Lymphocytes # (A) 1.98 X 10*3/uL (0.90-5.00); Lymphocytes % (A) 26.9 %; Monocytes # (A) 0.69 X 10*3/uL (0.20-1.00); Monocytes % (A) 9.4 %; Neutrophils # (A) 4.13 X 10*3/uL (1.80-7.70); Neutrophils % (A) 56.1 %
[2024-04-20 15:26] LABS: INR <0.93 sec (0.93-1.11)
== END | disposition home or self-care (01) ==
LOC: LABPAT 08:54
PROVIDERS: ATTEND Orthopaedic Surgery
DX: Z01.812 Encounter for preprocedural laboratory examination (principal); M17.12 Unilateral primary osteoarthritis, left knee; Z22.322 Carrier or suspected carrier of Methicillin resistant Staphylococcus aureus
CPT/HCPCS: 85025; 85610; 87070